=== PATIENT | male | born 1985 | race Caucasian/White ===

== ENCOUNTER 2017-03-16 12:05 | Emergency (ER) | payer SELFPAY ==
[~2017-03-16] VITALS: Ht 177.8 cm; Wt 111.1 kg
[~2017-03-16 12:05] MED LIST: CHL25T PO; CITA40TA19 PO; DCS100C PO; HCT25T PO; HCTZ12.5T PO; HYDR-3454 PO; HYDR1TAB PO; HYDR1TAB8 OP; HYOS0.1216 PO; KETO-22 PO; ONDA-42 SL; ONDAN4ODT PO; PENI500T PO; PHEN16.297 PO; PNT40TEC PO; PROMETHAZINE INJ 25 MG/ML (PHENERGAN) AMP ONE; PROPRANOLOL PO; TRM50T PO
--- NOTE | 2017-03-16 12:10 | ED General ---
General Stated Complaint: VERTIGO WHILE DRIVING Source of Information: Patient Exam Limitations: No Limitations History of Present Illness Time Seen by Provider: 12:09 Initial Comments To ER with reports of vertigo. This began very minimally this morning with mild dizziness that he states is similar to when he stands up too fast. However this persisted and intensified as the morning progressed to the point that he couldn't stand up. EMS was summoned. He has a history of this about a year ago which resolved spontaneously. Timing/Duration: 4-6 Hours Severity: Moderate Allergies and Home Medications Allergies Coded Allergies: alprazolam (Unverified Allergy, Unknown, MAKES HIM VIOLENT, 11/27/14) Constitutional: see HPI EENTM: see HPI Respiratory: no symptoms reported Cardiovascular: no symptoms reported Genitourinary: no symptoms reported Musculoskeletal: no symptoms reported Skin: no symptoms reported Psychiatric/Neurological: See HPI Hematologic/Lymphatic: No Symptoms Reported Immunological/Allergic: no symptoms reported Past Mvfmyvu-Usnzuz-Ylojuy Hx Seasonal Allergies Seasonal Allergies: No Cardiovascular Cardiac Disorders: Hypertension Gastrointestinal Gastrointestinal Disorders: Gall Bladder Disease Psychosocial Behavioral Health Disorders: Anxiety, Suicide Attempts, Depression Blood Transfusions Adverse Reaction to a Blood Tr: No Family Medical History Significant Family History: No Pertinent Family Hx Physical Exam Vital Signs Vital Sign - Last 12Hours 03/16/17 12:07 Temp 97.4 Pulse 65 Resp 18 B/P (MAP) 144/104 Pulse Ox 98 Capillary Refill : General Appearance: No Apparent Distress, WD/WN Eyes: Bilateral Eye Normal Inspection, Bilateral Eye PERRL, Bilateral Eye EOMI HEENT: PERRL/EOMI, TMs Normal, Other (Horizontal nystagmus) Neck: Full Range of Motion, Normal Inspection Respiratory: No Accessory Muscle Use, No Respiratory Distress Cardiovascular: Regular Rate, Rhythm, Normal Peripheral Pulses Gastrointestinal: Non Tender, Soft Extremity: Normal Capillary Refill, Normal Inspection Neurologic/Psychiatric: Alert, Oriented x3, No Motor/Sensory Deficits Skin: Normal Color, Warm/Dry Progress/Results/Core Measures Results/Orders Lab Results Laboratory Tests Test 03/16/17 12:33 03/16/17 13:00 Range/Units White Blood Count 6.0 4.3-11.0 10^3/uL Red Blood Count 4.53 4.35-5.85 10^6/uL Hemoglobin 14.8 13.3-17.7 G/DL Hematocrit 42 40-54 % Mean Corpuscular Volume 93 80-99 FL Mean Corpuscular Hemoglobin 33 25-34 PG Mean Corpuscular Hemoglobin Concent 35 32-36 G/DL Red Cell Distribution Width 11.7 10.0-14.5 % Platelet Count 201 130-400 10^3/uL Mean Platelet Volume 10.2 7.4-10.4 FL Neutrophils (%) (Auto) 52 42-75 % Lymphocytes (%) (Auto) 38 12-44 % Monocytes (%) (Auto) 6 0-12 % Eosinophils (%) (Auto) 3 0-10 % Basophils (%) (Auto) 0 0-10 % Neutrophils # (Auto) 3.1 1.8-7.8 X 10^3 Lymphocytes # (Auto) 2.3 1.0-4.0 X 10^3 Monocytes # (Auto) 0.4 0.0-1.0 X 10^3 Eosinophils # (Auto) 0.2 0.0-0.3 10^3/uL Basophils # (Auto) 0.0 0.0-0.1 10^3/uL Sodium Level 139 135-145 MMOL/L Potassium Level 3.7 3.6-5.0 MMOL/L Chloride Level 107 98-107 MMOL/L Carbon Dioxide Level 25 21-32 MMOL/L Anion Gap 7 5-14 MMOL/L Blood Urea Nitrogen 9 7-18 MG/DL Creatinine 0.79 0.60-1.30 MG/DL Estimat Glomerular Filtration Rate > 60 BUN/Creatinine Ratio 11 Glucose Level 98 70-105 MG/DL Calcium Level 9.0 8.5-10.1 MG/DL Total Bilirubin 0.4 0.1-1.0 MG/DL Aspartate Amino Transf (AST/SGOT) 20 5-34 U/L Alanine Aminotransferase (ALT/SGPT) 19 0-55 U/L Alkaline Phosphatase 62 40-136 U/L Total Protein 7.0 6.4-8.2 GM/DL Albumin 4.2 3.2-4.5 GM/DL Urine Opiates Screen NEGATIVE NEGATIVE Urine Oxycodone Screen NEGATIVE NEGATIVE Urine Methadone Screen NEGATIVE NEGATIVE Urine Propoxyphene Screen NEGATIVE NEGATIVE Urine Barbiturates Screen NEGATIVE NEGATIVE Ur Tricyclic Antidepressants Screen NEGATIVE NEGATIVE Urine Phencyclidine Screen NEGATIVE NEGATIVE Urine Amphetamines Screen NEGATIVE NEGATIVE Urine Methamphetamines Screen NEGATIVE NEGATIVE Urine Benzodiazepines Screen NEGATIVE NEGATIVE Urine Cocaine Screen NEGATIVE NEGATIVE Urine Cannabinoids Screen POSITIVE H NEGATIVE My Orders Orders - EM HOFF APRN Promethazine Injection (Phenergan Injec (03/16/17 12:15) Cbc With Automated Diff (03/16/17 12:08) Comprehensive Metabolic Panel (03/16/17 12:08) Ekg Tracing (03/16/17 12:22) Drug Screen Stat (Urine) (03/16/17 12:22) Medications Given in ED Current Medications Medications Dose Ordered Sig/Lakshmi Route Start Time Stop Time Status Last Admin Dose Admin Promethazine HCl 25 mg ONCE ONCE IM 03/16/17 12:15 03/16/17 12:16 DC 03/16/17 12:01 25 MG Vital Signs/I&O Vital Sign - Last 12Hours 03/16/17 12:07 Temp 97.4 Pulse 65 Resp 18 B/P (MAP) 144/104 Pulse Ox 98 Departure Communication (Admissions) Progress Notes 1351-patient is feeling much better at this time. He has his eyes open now which he was unable to do initially, the nystagmus has resolved and he has been ambulatory to the bathroom. We will discharge to home with a prescription for oral Phenergan. Impression Impression: Primary Impression: Vertigo Disposition: 01 HOME, SELF-CARE Condition: Stable Departure-Patient Inst. Decision time for Depature: 13:52 Referrals: [facility] (PCP/Family) Primary Care Physician Patient Instructions: Vertigo (a Type of Dizziness) (DC) Add. Discharge Instructions: 1. Return to ER for any concerns 2. Take medication every 8 hours as needed for nausea or dizziness 3. Change positions slowly as quick movements may worsen your dizziness Scripts Promethazine HCl (Promethazine Tablet) 25 Mg Tablet 25 MG PO Q8H Y for NAUSEA/VOMITING, #10 TAB Prov: EM HOFF APRN 03/16/17 Work/School Note: Work Release Form Date Seen in the Emergency Department: Mar 16, 2017 Return to Work: Mar 17, 2017 EM HOFF APRN Mar 16, 2017 12:10
--- OUTSIDE RECORDS SUMMARY | 2017-03-16 12:11 | XMS REPORT ---
Author Author BRANDI XIAO Organization [employer] Address Unknown Phone Unavailable Care Team Providers Care Transport Tank Technician Name Role Phone BRANDI XIAO CP Unavailable Allergies, Adverse Reactions, Alerts Substance Reaction Event Type Xanax makes the pt. angry Drug Allergy Problems Problem Type Condition Code Onset Dates Condition Status Problem Depressive disorder, not elsewhere classified 311 Active Problem Esophageal reflux 530.81 Active Problem Adjustment disorder with mixed anxiety and depressed mood 309.28 Active Assessment Right hand pain M79.641 Active Medications Medication Code System Code Instructions Start Date End Date Status Dosage Valium [facility] [place] [address]-50 10 MG Orally Twice a day 1 tablet as needed Naprosyn [facility] [place] [address]-92 500 MG Orally every 12 hrs Jun 30, 2015Jul 1 tablet as needed Procedures Procedure Coding System Code Date X-RAY EXAM OF HAND CPT-4 66860 Jun 30, 2015 Office Visit, Est Pt., Level 3 CPT-4 48964 Jun 30, 2015 Vital Signs Date/Time: Jun 30, 2015 Temperature 97.7 F Weight 284.3 lbs Height 70 in BMI 40.79 Index Blood Pressure Diastolic 100 mmHg Blood Pressure Systolic 150 mmHg Cardiac Monitoring Heart Rate 80 bpm Results No Known Results Summary Purpose [employer] Submission
--- OUTSIDE RECORDS SUMMARY | 2017-03-16 12:11 | XMS REPORT ---
Author MATTEO Acevedo [employer] Address Unknown Phone Unavailable Care Team Providers Care Senior Data Architect Name Role Phone MATTEO WILSON CP Unavailable Allergies, Adverse Reactions, Alerts Substance Reaction Event Type Xanax makes the pt. angry Drug Allergy Problems Problem Type Condition Code Onset Dates Condition Status Problem Depressive disorder, not elsewhere classified 311 Active Problem Esophageal reflux 530.81 Active Problem Adjustment disorder with mixed anxiety and depressed mood 309.28 Active Assessment Dental examination Z01.20 Active Medications Medication Code System Code Instructions Start Date End Date Status Dosage Amoxicillin [facility] [address]-30 500 MG Orally 4 times daily 1 capsule Webber [facility] NAMED [facility] [address]-49 5-325 MG Orally every 6 hrs 1 tablet as needed Procedures Procedure Coding System Code Date LTD ORAL EVALUATION - PROBLEM FOCUS CPT-4 D0140 December 22, 2015 Vital Signs Date/Time: December 22, 2015 Blood Pressure Diastolic 105 mmHg Blood Pressure Systolic 161 mmHg Height 70 in Results No Known Results Summary Purpose [employer] Submission
--- OUTSIDE RECORDS SUMMARY | 2017-03-16 12:11 | XMS REPORT ---
Author Author ALYSON DIAZ [employer] Address Unknown Phone Unavailable Care Team Providers Care Field Operations Farm Manager Name Role Phone ALYSON DIAZ CP Unavailable Allergies, Adverse Reactions, Alerts Substance Reaction Event Type Xanax makes the pt. angry Drug Allergy Problems Problem Type Condition Code Onset Dates Condition Status Problem Depressive disorder, not elsewhere classified 311 Active Problem Esophageal reflux 530.81 Active Problem Adjustment disorder with mixed anxiety and depressed mood 309.28 Active Assessment Dental caries K02.9 Active Medications Medication Code System Code Instructions Start Date End Date Status Dosage Tramadol HCl [facility] [address]-06 50 MG Orally every 6 hrs 1 tablet as needed Procedures Procedure Coding System Code Date EXTRAC ERUPTED TOOTH/EXPOSED ROOT CPT-4 D7140 January 08, 2016 Vital Signs Date/Time: January 08, 2016 Blood Pressure Diastolic 101-cuff, 152 mmHg Blood Pressure Systolic 154 mmHg Results No Known Results Summary Purpose [employer] Submission
--- OUTSIDE RECORDS SUMMARY | 2017-03-16 12:14 | XMS REPORT | Continuity of Care Document ---
Author Author [facility] Address Unknown Phone Unavailable Allergies Active Description Code Type Severity Reaction Onset Reported/Identified Relationship to Patient Clinical Status Yes No Known Drug Allergies [id number] Drug Allergy Unknown N/ A 04/05/2010 Yes Zoloft Drug Allergy N/A N/A 08/03/2010 Yes alprazolam [id number] Drug Allergy Unknown MAKES HIM VIOLE 11/27/2014 Medications Problems Date Dx Coded Attending Type Code Diagnosis Diagnosed By 04/09/2009 LY ISIDRO DO 278.02 Overweight 04/09/2009 LY ISIDRO DO 401.9 ESSENTIAL HYPERTENSION 04/09/2009 JIM BRUCE MD 278.02 Overweight 04/09/2009 JIM BRUCE MD 401.9 ESSENTIAL HYPERTENSION 04/09/2009 JIM BRUCE MD 278.02 Overweight 04/09/2009 JIM BRUCE MD 401.9 ESSENTIAL [facility]ERTENSION [facility]09[facility]/09[facility] 401.9 ESSENTIAL HYPERTENSION 04/09/2009 JIM BRUCE MD 278.02 Overweight 04/09/2009 JIM BRUCE MD 401.9 ESSENTIAL HYPERTENSION 04/09/2009 JIM BRUCE MD 278.02 Overweight 04/09/2009 JIM BRUCE MD 401.9 ESSENTIAL HYPERTENSION 04/15/2009 LY ISIDOR DO 272.4 OTHER AND UNSPECIFIED HYPERLIPIDEMIA 04/15/2009 JIM BRUCE MD N 272.4 OTHER AND UNSPECIFIED HYPERLIPIDEMIA 04/15/2009 JIM BRUCE MD 272.4 OTHER AND UNSPECIFIED HYPERLIPIDEMIA 04/15/2009 [facility] 272.[facility] OTHER AND UNSPECIFIED HYPERLIPIDEMIA 04/15/2009 JIM BRUCE MD 272.4 OTHER AND UNSPECIFIED HYPERLIPIDEMIA 04/15/2009 JIM BRUCE MD 272.4 OTHER AND UNSPECIFIED HYPERLIPIDEMIA 06/03/2009 VASILE ISIDRO DOA K 466.0 BRONCHITIS, ACUTE 06/03/2009 JIM BRUCE MD N 466.0 BRONCHITIS, ACUTE 06/03/2009 JIM BRUCE MD N 466.0 BRONCHITIS, ACUTE 06/03/2009 [facility] R 466.0 BRONCHITIS, ACUTE 06/03/2009 JIM BRUCE MD N 466.0 BRONCHITIS, ACUTE 06/03/2009 JIM BRUCE MD 466.0 BRONCHITIS, ACUTE 04/05/2010 Ot 575.10 04/05/2010 Ot 789.06 07/29/2010 LY ISIDRO DO K 300.4 DYSTHYMIC DISORDER 07/29/2010 VASILE ISIDRO DOA K 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 07/29/2010 LY ISIDRO DO K 401.1 BENIGN ESSENTIAL HYPERTENSION 07/29/2010 JIM BRUCE MD N 300.4 DYSTHYMIC DISORDER 07/29/2010 JIM BRUCE MD N 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 07/29/2010 JIM BRUCE MD N 401.1 BENIGN ESSENTIAL HYPERTENSION 07/29/2010 JIM BRUCE MD N 300.4 DYSTHYMIC DISORDER 07/29/2010 JIM BRUCE MD N 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 07/29/2010 JIM BRUCE MD N 401.1 BENIGN ESSENTIAL HYPERTENSION 07/29/2010 [facility] SHARDA R 300.4 DYSTHYMIC DISORDER 07/29/2010 [facility] R 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 07/29/2010 [facility] SHAR[facility] R 401.1 BENIGN ESSENTIAL HYPERTENSION 07/29/2010 JIM BRUCE MD N 300.4 DYSTHYMIC DISORDER 07/29/2010 JIM BRUCE MD N 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 07/29/2010 JIM BRUCE MD N 401.1 BENIGN ESSENTIAL HYPERTENSION 07/29/2010 JIM BRUCE MD N 300.4 DYSTHYMIC DISORDER 07/29/2010 JIM BRUCE MD N 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 07/29/2010 JIM BRUCE MD 401.1 BENIGN ESSENTIAL HYPERTENSION 08/08/2010 Ot 523.40 08/08/2010 Ot 525.9 03/22/2013 SRIDEVI RODRIGUEZ DO Ot 574.20 03/22/2013 SRIDEVI RODRIGUEZ DO Ot 789.00 03/29/2013 LY ISIDRO DO 311 DEPRESSIVE DISORDER NOT ELSEWHERE CLASSIFIED 03/29/2013 JIM BRUCE MD 311 DEPRESSIVE DISORDER NOT ELSEWHERE CLASSIFIED 03/29/2013 JIM BRUCE MD 311 DEPRESSIVE DISORDER NOT ELSEWHERE CLASSIFIED 03/29/2013 [facility] R 311 DEPRESSIVE DISORDER NOT ELSEWHERE CLASSIFIED 03/29/2013 JIM BRUCE MD 311 DEPRESSIVE DISORDER NOT ELSEWHERE CLASSIFIED 03/29/2013 JIM BRUCE MD 311 DEPRESSIVE DISORDER NOT ELSEWHERE CLASSIFIED 05/07/2013 JIM BRUCE MD N 530.81 GERD 05/07/2013 JIM BRUCE MD 530.81 GERD 05/07/2013 [facility] R 530.81 GERD 05/07/2013 JIM BRUCE MD N 530.81 GERD 05/07/2013 JIM BRUCE MD 530.81 GERD 08/12/2013 PETRA KWAN MD Ot 401.9 08/12/2013 PETRA KWAN MD T Ot 786.52 08/12/2013 PETRA KWAN MD T Ot 786.59 08/13/2013 [facility] R 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 08/13/2013 JIM BRUCE MD 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 08/13/2013 JIM BRUCE MD 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 07/20/2014 YULY RODRIGUEZ DOKirk Duarte Ot 574.20 07/20/2014 SRIDEVI RODRIGUEZ DO Felicia Ot 789.01 08/13/2014 VIVI CHAPMAN Ot 300.00 08/13/2014 VIVI CHAPMAN Ot 311 08/13/2014 VIVI CHAPMAN Ot V62.84 12/04/2014 JONATHON SANDERS DO Ot 574.10 12/04/2014 JONATHON SANDERS DO Ot 574.20 05/13/2015 JONATHON SANDERS DO Ot 574.20 05/13/2015 JONATHON SANDERS DO Ot V72.63 05/13/2015 JONATHON SANDERS DO Ot V74.8 05/27/2015 JONATHON SANDERS DO Shabnam Ot 574.20 05/27/2015 JONATHON SANDERS DO Shabnam Ot V72.63 05/27/2015 JONATHON SANDERS DO Ot V74.8 Procedures Code [place] [address] ROUTINE VENIPUNCTURE 05/08/2013 29059 CMP 05/08/2013 33039 LIPID PANEL 05/08 03269 PSYCH DIAGNOSTIC EVALUATION 08/14/2013 70342 ROUTINE VENIPUNCTURE 12/12/2013 26175 CMP 12/12/2013 31951 LIPID PANEL 12/12 Results Encounters ACCT No. Visit Date/Time Discharge Status Pt. Type Provider Facility Loc./Unit Complaint [id number] 12/12/2013 10:09:00 12/12/2013 23: 59:59 CLS Outpatient JIM BRUCE MD [id number] 08/20/2013 14:13:00 08/20/2013 23: 59:59 CLS Outpatient JIM BRUCE MD [id number] 08/13/2013 12:46:00 08/13/2013 23: 59:59 CLS Outpatient SHARDA BURTON [id number] 05/08/2013 09:23:00 05/08/2013 23: 59:59 CLS Outpatient JIM BRUCE MD [id number] 05/07/2013 10:12:00 05/07/2013 23: 59:59 CLS Outpatient JIM BRUCE MD [id number] 03/29/2013 14:38:00 03/29/2013 23: 59:59 CLS Outpatient DWAINE LY Felicia [id number] 12/04/2014 06:00:00 2014 15:00:00 DIS Outpatient JONATHON SANDERS DO [facility] [id number] 11/27/2014 10:29:00 2014 23:59:59 CLS Outpatient JONATHON SANDERS DO [facility] PREOP [id number] 08/13/2014 18:37:00 2014 21:10:00 DIS Emergency VIVI CHAPMAN [facility] ER [id number] 07/20/2014 02:13:00 2014 04:14:00 DIS Emergency SRIDEVI RODRIGUEZ DO [facility] ER [id number] 01/19/2014 20:11:00 2013 23:59:59 CLS Emergency [id number] 08/12/2013 18:54:00 2013 20:58:00 DIS Emergency PETRA KWAN MD [facility] ER [id number] 03/22/2013 19:19:00 2012 21:43:00 DIS Emergency SRIDEVI RODRIGUEZ DO [facility] ER [id number] 08/08/2010 00:33:00 Document Registration [id number] 04/05/2010 09:38:00 Document Registration
[2017-03-16] MEDS ORDERED: PROMETHAZINE INJ 25 MG/ML (PHENERGAN) AMP IM ONE (12:15)
[2017-03-16 12:39] LABS: BASOPHILS % (AUTO) 0 % (0-10); EOSINOPHILS # (AUTO) 0.2 10^3/uL (0.0-0.3); EOSINOPHILS % (AUTO) 3 % (0-10); LYMPHOCYTES # (AUTO) 2.3 X 10^3 (1.0-4.0); LYMPHOCYTES % (AUTO) 38 % (12-44); MEAN CORPUSCULAR HEMOGLOBIN 33 PG (25-34); MEAN CORPUSCULAR HGB CONC 35 G/DL (32-36); MEAN CORPUSCULAR VOLUME 93 FL (80-99); MEAN PLATELET VOLUME 10.2 FL (7.4-10.4); MONOCYTES # (AUTO) 0.4 X 10^3 (0.0-1.0); MONOCYTES % (AUTO) 6 % (0-12); NEUTROPHILS # (AUTO) 3.1 X 10^3 (1.8-7.8); NEUTROPHILS % (AUTO) 52 % (42-75); PLATELET COUNT 201 10^3/uL (130-400); RED BLOOD COUNT 4.53 10^6/uL (4.35-5.85); RED CELL DISTRIBUTION WIDTH 11.7 % (10.0-14.5)
[2017-03-16 12:56] LABS: ALANINE AMINOTRANSFERASE 19 U/L (0-55); ALBUMIN 4.2 GM/DL (3.2-4.5); ANION GAP 7 MMOL/L (5-14); ASPARTATE AMINO TRANSFERASE 20 U/L (5-34); BILIRUBIN,TOTAL 0.4 MG/DL (0.1-1.0); BLOOD UREA NITROGEN 9 MG/DL (7-18); BUN/CREATININE RATIO 11; CARBON DIOXIDE 25 MMOL/L (21-32); CHLORIDE 107 MMOL/L (98-107); CREATININE SERUM 0.79 MG/DL (0.60-1.30); GFR ESTIMATED > 60; GLUCOSE 98 MG/DL (70-105); POTASSIUM 3.7 MMOL/L (3.6-5.0); SODIUM 139 MMOL/L (135-145)
[2017-03-16] MEDS ORDERED: PROM25TA14 PO (13:53)
[2017-03-16 13:59] VITALS: BP 136/88
== END 2017-03-16 13:59 | disposition home or self-care (01) ==
LOC: EDUNIT# 12:05 → ER 12:06
DX: R42 Dizziness and giddiness (principal); F41.9 Anxiety disorder, unspecified; F32.9 Major depressive disorder, single episode, unspecified; I10 Essential (primary) hypertension; Z91.5 Personal history of self-harm
CPT/HCPCS: 36415; 80053; 80306; 85025; 93005; 96372

== ENCOUNTER 2018-04-15 10:22 | Emergency (ER) | payer SELFPAY ==
[~2018-04-15] VITALS: Ht 177.8 cm; Wt 115.7 kg
[~2018-04-15 10:22] MED LIST changes: +PROM25TA14 PO; -PROMETHAZINE INJ 25 MG/ML (PHENERGAN) AMP ONE
--- OUTSIDE RECORDS SUMMARY | 2018-04-15 10:52 | XMS REPORT ---
Author Author BENITEZ GE [facility] Address [address] [place] [address] Care Team Providers Care Crane Man Name Role Phone BENITEZ GE Unavailable PROBLEMS Type Condition ICD9-CM Code FSC85-MU Code Onset Dates Condition Status SNOMED Code Problem Essential hypertension I10 Active 23302157 Problem Esophageal reflux K21.9 Active 922709166 Problem Mixed emotional features as adjustment reaction F43.23 Active 38153193 Problem Depressive disorder, not elsewhere classified F32.9 Active 83807533 ALLERGIES No Information ENCOUNTERS Encounter Location Date Diagnosis [place] [address] [address] Mar, Essential hypertension I10 [place] [address] [address] Feb, [place] [address] [address] Jan, Essential hypertension I10 and Dizziness R42 [place] [address] [address] Dec, [place] [address] [address] Dec, Dizziness R42 and Elevated blood pressure reading R03.0 [place] [address] [address] Apr, [place] [address] [address] Apr, Family history of cardiovascular disease Z82.49 [place] [address] [address] Mar, Syncope, unspecified syncope type R55 and Family history of cardiovascular disease Z82.49 [facility] [address] [id number] Dec, Dental caries K02.9 [facility] [address], [place] [address] Dec, Dental examination Z01.20 [facility] [address] [place] [id number] [place] [id number] Sep, Dental examination Z01.20 [facility] [address] [place] [id number] [place] [address] Jun, Right hand pain M79.641 [facility] [address] [place] [id number] [place] [address] Nov, [facility] [address] Nov, [facility] [id number] [place] [id number] Nov, [facility] [address] [address] October, Gallstones 574.20 [facility] [address] [id number] Sep, [facility] [address], [place] [address] Sep, [facility] [address] [address] Jan, [facility] [address] [address] Jan, [facility] [address] [address] Dec, [facility] [address] [address] Dec, [facility] [address] [place] [address] Dec, [facility] [address] [id number] [place] [address] Dec, [facility] [place] [facility] [address] [id number] [place] [address] Nov, [facility] [address] [id number] [place] [address] Nov, [facility] [place] [facility] [address] [id number] [place] [address] October, [facility] [address] [id number] [place] [address] October, [facility] [address] [id number] [place] [address] Sep, [facility] [place] [facility] [address] [id number] [place] [address] Sep, [facility] [address] [id number] [place] [address] Sep, [facility] [place] [facility] [address] [id number] [place] [address] Sep, [facility] [address] [id number] [place] [address] Aug, [facility] [place] [facility] [address] [id number] [place] [address] Aug, [facility] [place] [facility] [address] [id number] [place] [address] Aug, [facility] [place] [facility] [address] [id number] [place] [address] Aug, [facility] [place] [facility] [address] [id number] [place] [address] May, [facility] [place] [facility] [address] [id number] [place] [address] May, [facility] [address] [facility] [id number] [address] May, [facility] [address] [facility] [id number], [place] [address] May, [facility] [address] [facility] [id number], [place] [address] Apr, [facility] [address] [facility] [id number], [place] [address] Apr, [facility] [address] [facility] [id number], [place] [address] Apr, [facility] [address] [facility] [id number], [place] [address] Apr, [facility] [address] [facility] [id number], [place] [address] Apr, [facility] [address] [place] [id number] [address] Apr, [facility] [address], [place] [address] Mar, [facility] [address], [place] [address] Mar, [facility] [address] [place] [id number], [place] [address] Jul, [facility] [address], [place] [address] May, [facility] [address] [facility] [id number], [place] [address] May, [facility] [address] [facility] [id number], [place] [address] Apr, [facility] [address] [id number], [place] [address] Mar, IMMUNIZATIONS No Known Immunizations SOCIAL HISTORY Never Assessed REASON FOR VISIT Requests return call PLAN OF CARE VITAL SIGNS MEDICATIONS No Known Medications RESULTS No Results PROCEDURES No Known procedures INSTRUCTIONS MEDICATIONS ADMINISTERED No Known Medications MEDICAL (GENERAL) HISTORY Type Description Date Medical History hypertension Medical History hyperlipidemia Medical History depression Medical History gastroesophageal reflux disease (GERD) Medical History mood disorder-hx of suicide attempt Medical History anxiety Medical History palpitations Medical History hx if meth/TCH abuse (hx of incareration from 12/2010 to 02/2013 ) Surgical History cholecystectomy Surgical History rt eye surgery Surgical History inguinal hernia Hospitalization History suicide attempt by strangulation Kaleb Fischer 07/28/2010
--- OUTSIDE RECORDS SUMMARY | 2018-04-15 10:52 | XMS REPORT ---
Author Author BENITEZ GE [facility] [address] Address [address] [place] [address] Care Team Providers Care Clerical Associate Name Role Phone BENITEZ GE Unavailable PROBLEMS Type Condition ICD9-CM Code GKL70-HI Code Onset Dates Condition Status SNOMED Code Problem Essential hypertension I10 Active 96249506 Problem Esophageal reflux K21.9 Active 705316175 Problem Mixed emotional features as adjustment reaction F43.23 Active 24935515 Problem Depressive disorder, not elsewhere classified F32.9 Active 32685880 ALLERGIES No Information ENCOUNTERS Encounter Location Date Diagnosis [place] [address] [address] Mar, [place] [address] [address]- [address] Mar, Essential hypertension I10 [place] [address] [address]- [address] Feb, [place] [address] [address]- [address]84 Jan, Essential hypertension I10 and Dizziness R42 [place] [address] [address]- [address]46 Dec, [place] [address] [address]- 6707 Dec, Dizziness R42 and Elevated blood pressure reading R03.0 [place] [address] [address]- [address] Apr, [place] [address] [address]- [address] Apr, Family history of cardiovascular disease Z82.49 [place] [address], [place] [address] Mar, Syncope, unspecified syncope type R55 and Family history of cardiovascular disease Z82.49 [facility] [address] [id number] Dec, Dental caries K02.9 [facility] [address], [place] [address] Dec, Dental examination Z01.20 [facility] [address] [place] [id number] [place] [id number] Sep, Dental examination Z01.20 [facility] [address] [place] [address] [id number] [place] [address] 2546 Jun, Right hand pain M79.641 [facility] [address], [place] [address] 9[address] Nov, [facility] [address] [place] [address] [id number] [place] [address]- 1006 Nov, [facility] [address] [address] Nov, [facility] [address], [place] [address]- 2[address] October, Gallstones 574.20 [facility] [address] [place] [address] [id number] [address] Sep, [facility] [address] [address] [address] Sep, [facility] [address] [address] Jan, [facility] [address], [place] [address]- 0536 Jan, [facility] [address], [place] [address]- 4376 Dec, [facility] [address] [place] [id number] [place] [address]- 25[address] Dec, [facility] [address] [id number] [place] [address]- 9589 Dec, [facility] [place] [facility] [address] [id number] [place] [address]- 6356 Dec, [facility] [address] [id number] [place] [address]- 5104 Nov, [facility] [place] [facility] [address] [id number] [place] [address]- 3398 Nov, [facility] [place] [facility] [address] [id number] [place] [address]- 6133 October, [facility] [place] [facility] [address] [id number] [place] [address]- 1766 October, [facility] [place] [facility] [address] [id number] [place] [address]- 1614 Sep, [facility] [address] [id number] [place] [address]- 1048 Sep, [facility] [place] [facility] [address] [id number] [place] [address]- 0535 Sep, [facility] [address] [id number] [place] [address]- 6719 Sep, [facility] [place] [facility] [address] [id number] [place] [address]- 2046 Aug, [facility] [place] [facility] [address] [id number] [place] [address]- 2955 Aug, [facility] [place] [facility] [address] [id number] [place] [address]- 3022 Aug, [facility] [place] [facility] [address] [id number] [place] [address]- 2546 Aug, [facility] [place] [facility] [address] [id number] [place] [address]- 8528 May, [facility] [address] [id number] [place] [address]- 1954 May, [facility] [place] [facility] [address] [id number] [place] [address]- 9504 May, [facility] [place] [facility] [address] [id number] [place] [address]- 9487 May, [facility] [place] [facility] [address] [id number] [place] [address]- 3530 Apr, [facility] [place] [facility] [address] [id number] [place] [address]- 1767 Apr, [facility] [place] [facility] [address] [id number] [place] [address]- 5572 Apr, [facility] [place] [facility] [address] [id number] [place] [address]- 2475 Apr, [facility] [place] [facility] [address] [id number], [place] [address]- 6419 Apr, [facility] [place] [facility] [address] [id number] [place] [address]- 1305 Apr, [facility] [place] [facility] [address] [facility] [id number], [place] [address]- 5[address] Mar, [facility] [place] [facility] [address] [facility] [id number], [place] [address]- 2538 Mar, [facility] [place] [facility] [address] [id number], [place] [address]- 1002 Jul, [facility] [place] [facility] [address] [id number], [place] [address]- 5435 May, [facility] [place] [facility] [address] [id number], [place] [address]- 5686 May, [facility] [place] [facility] [address] [facility] [id number], [place] [address]- 0495 Apr, [facility] [place] [facility] [address] [id number], [place] [address]- 7739 Mar, IMMUNIZATIONS No Known Immunizations SOCIAL HISTORY Never Assessed REASON FOR VISIT FYI PLAN OF CARE VITAL SIGNS MEDICATIONS Unknown Medications RESULTS No Results PROCEDURES No Known [...]
--- OUTSIDE RECORDS SUMMARY | 2018-04-15 10:53 | XMS REPORT ---
Author Author JANIS JIM [facility] Address [address] [place] [address] Care Team Providers Care B2B Sales Consultant Name Role Phone JANISISABELLE ALBAHANY Unavailable PROBLEMS Type Condition ICD9-CM Code [id number] Code Onset Dates Condition Status SNOMED Code Problem Depressive disorder, not elsewhere classified F32.9 Active 17212316 Problem Esophageal reflux K21.9 Active 195562442 Problem Mixed emotional features as adjustment reaction F43.23 Active 26102618 ALLERGIES No Information ENCOUNTERS Encounter Location Date Diagnosis [place] [address] [address] Apr, [address] [address]- [address] Apr, Family history of cardiovascular disease Z82.49 [place] [address] [address]- 6[address] Mar, Syncope, unspecified syncope type R55 and Family history of cardiovascular disease Z82.49 [facility] [address] [id number] Dec, Dental caries K02.9 [place] [address] [address]- [address]15 Dec, Dental examination Z01.20 [facility] [address] [id number] Sep, Dental examination Z01.20 [place] [address] [address]- 4366 Jun, Right hand pain M79.641 [place] [address] [address]- 4897 Nov, [facility] [place] [facility] [address] [id number] [place] [address]- 3435 Nov, [facility] [place] [facility] [address] [id number] [place] [address]- 8521 Nov, [facility] [place] [facility] [address] [id number] [place] [address]- 0180 October, Gallstones 574.20 [facility] [place] [facility] [address] [id number] [place] [address]- 5925 Sep, [facility] [place] [facility] [address] [id number] [place] [address]- 0898 Sep, [facility] [place] [facility] [address] [id number] [place] [address]- 8907 Jan, [facility] [place] [facility] [address] [id number] [place] [address]- 9758 Jan, [facility] [place] [facility] [address] [id number] [place] [address]- 8532 Dec, [facility] [place] [facility] [address] [id number] [place] [address]- 0287 Dec, [facility] [place] [facility] [address] [id number] [place] [address]- 1876 Dec, [facility] [place] [facility] [address] [id number] [place] [address]- 8058 Dec, [facility] [place] [facility] [address] [id number] [place] [address]- 3490 Nov, [facility] [place] [facility] [address] [id number] [place] [address]- 6761 Nov, [facility] [place] [facility] [address] [id number] [place] [address]- 4026 October, [facility] [place] [facility] [address] [id number] [place] [address]- 0160 October, [facility] [place] [facility] [address] [id number] [place] [address]- 4896 10 Sep, 2013 [facility] [address] [id number] [place] [address]- 7141 Sep, [facility] [place] [facility] [address] [id number] [place] [address]- 5416 Sep, [facility] [place] [facility] [address] [id number] [place] [address]- 8367 Sep, [facility] [place] [facility] [address] [id number] [place] [address]- 9330 Aug, [facility] [place] [facility] [address] [id number] [place] [address]- 2784 Aug, [facility] [place] [facility] [address] [id number] [place] [address]- 5535 Aug, [facility] [place] [facility] [address] [id number] [place] [address]- 5229 Aug, [facility] [place] [facility] [address] [id number] [place] [address]- 5118 May, [facility] [place] [facility] [address] [id number] [place] [address]- 3397 May, [facility] [place] [facility] [address] [facility] [id number] [place] [address]- 7675 May, [facility] [place] [facility] [address] [id number] [place] [address]- 4376 May, [facility] [place] [facility] [address] [id number] [place] [address]- 1177 Apr, [facility] [place] [facility] [address] [id number] [place] [address]- 7644 Apr, [facility] [place] [facility] [address] [id number] [place] [address]- 6732 Apr, [facility] [place] [facility] [address] [id number] [place] [address]- 0030 Apr, [facility] [place] [address], [place] [address]- 5230 Apr, [facility] [place] [address]005[address], [place] [address]- 0736 Apr, [facility] [place] [address], [place] [address]- 8759 Mar, [facility] [place] [address], [place] [address]- 8853 Mar, [facility] [place] [address], [place] [address]- 8195 Jul, [facility] [place] [address] [place] [id number] [place] [address]- 5186 May, [facility] [place] [address], [place] [address]- 2120 May, [facility] [place] [address], [place] [address]- 7966 Apr, [facility] [place] [address] [place] [id number], [place] [address]- 1830 Mar, IMMUNIZATIONS No Known Immunizations SOCIAL HISTORY Never Assessed REASON FOR VISIT Lab (walk-in) PLAN OF CARE VITAL SIGNS MEDICATIONS Unknown Medications RESULTS No Results PROCEDURES Procedure Date Ordered Result Body Site LIPID PANEL Apr 14, 2017 ASSAY THYROID STIM HORMONE Apr 14, 2017 VENIPUNCT, ROUTINE* Apr 14, 2017 INSTRUCTIONS MEDICATIONS ADMINISTERED No Known Medications MEDICAL (GENERAL) HISTORY Type Description Date Medical History hypertension Medical History hyperlipidemia Medical History depression Medical History gastroesophageal reflux disease (GERD) Medical History mood disorder-hx of suicide attempt Medical History anxiety Medical History palpitations Medical History hx if meth/TCH abuse (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
--- OUTSIDE RECORDS SUMMARY | 2018-04-15 10:53 | XMS REPORT ---
Author Author BENITEZ GE [facility] Address [address] [place] [address] Care Team Providers Care Can Maker Name Role Phone BENITEZ GE Unavailable PROBLEMS Type Condition ICD9-CM Code WKR17-HK Code Onset Dates Condition Status SNOMED Code Problem Essential hypertension I10 Active 19302084 Problem Esophageal reflux K21.9 Active 236388475 Problem Mixed emotional features as adjustment reaction F43.23 Active 87121813 Problem Depressive disorder, not elsewhere classified F32.9 Active 77831911 ALLERGIES No Information ENCOUNTERS Encounter Location Date Diagnosis [place] [id number] [address] Mar, [facility] [address] [address]- [address] Jan, Essential hypertension I10 and Dizziness R42 [place] [address] [address]- 5140 Dec, [place] [address] [address]- 0856 Dec, Dizziness R42 and Elevated blood pressure reading R03.0 [place] [address] [address]- 3139 Apr, [facility] [address] [address]- 7036 Apr, Family history of cardiovascular disease Z82.49 [facility] [address] [address]- 7995 Mar, Syncope, unspecified syncope type R55 and Family history of cardiovascular disease Z82.49 [facility] [address] [id number] Dec, Dental caries K02.9 [facility] [address] [id number] [address] [address] Dec, Dental examination Z01.20 [facility] [address] [id number] [address] Sep, Dental examination Z01.20 [facility] [address] [id number], [place] [address]- 0105 Jun, Right hand pain M79.641 [facility] [address] [id number][place]- 3992 Nov, [facility] [address] [id number] 3206 Nov, [facility] [address] [facility] [id number] 1777 Nov, [facility] [address] [facility] [id number][place] [address]- 3607 October, Gallstones 574.20 [facility] [address] [id number], [place] [address]- 3337 Sep, [facility] [address] [id number][place] [address]- 4815 Sep, [facility] [address] [id number][place] [address]- 0543 Jan, [facility] [address] [id number], [place] [address]- 8443 Jan, [facility] [address] [id number], [place] [address]- 7134 Dec, [facility] [address] [id number][place]- 8976 Dec, [facility] [address] [id number][place] 4510 Dec, [facility] [address] [id number] [place] [address]- 7126 Dec, [facility] [place] [facility] [address] [id number] [place] [address]- 2561 Nov, [facility] [place] [facility] [address] [id number] [place] [address]- 4886 Nov, [facility] [place] [facility] [address] [id number] [place] [address]- 9736 October, [facility] [place] [facility] [address] [id number] [place] [address]- 4262 October, [facility] [place] [facility] [address] [id number] [place] [address]- 2114 Sep, [facility] [place] [facility] [address] [id number] [place] [address]- 1492 Sep, [facility] [place] [facility] [address] [id number] [place] [address]- 8864 Sep, [facility] [place] [facility] [address] [id number] [place] [address]- 6087 Sep, [facility] [place] [facility] [address] [id number] [place] [address]- 9410 Aug, [facility] [place] [facility] [address] [id number] [place] [address]- 3249 Aug, [facility] [place] [facility] [address] [id number] [place] [address]- 5254 Aug, [facility] [place] [facility] [address] [id number] [place] [address]- 2546 Aug, [facility] [place] [facility] [address] [id number] [place] [address]- 3846 May, [facility] [place] [facility] [address] [id number] [place] [address]- 7316 May, [facility] [place] [facility] [address] [id number] [place] [address]- 3796 May, [facility] [address]00565[address], [place] [address]- 5608 May, [facility] [address]00565100[place], [place] [address]- 0113 Apr, [facility] [address]00565100[place], [place] [address]- 4775 Apr, [facility] [id number] [place] [address]- 0580 Apr, [facility] [address] [facility] [id number], [place] [address]- 8954 Apr, [facility] [id number] [place] [address] 25[address]- 0593 Apr, [facility] [address]00565[address], [place] [address]- 6820 Apr, [facility] [address]00565[address], [place] [address]- 1631 Mar, [facility] [address]00565[address], [place] [address]- 7761 Mar, [facility] [address]00565[address], [place] [address]- 0986 Jul, [facility] [address]65[address], [place] [address]- 3215 May, [facility] [address]00565[address], [place] [address]- 9459 May, [facility] [address]65[address], [place] [address]- 9486 Apr, [facility] [address]65[address], [place] [address]- 6824 Mar, IMMUNIZATIONS No Known Immunizations SOCIAL HISTORY Never Assessed REASON FOR VISIT Returned call PLAN OF CARE VITAL SIGNS MEDICATIONS Unknown [...]
--- OUTSIDE RECORDS SUMMARY | 2018-04-15 10:53 | XMS REPORT ---
Author Author JANIS JIM [facility] Address [address] [place] [address] Care Team Providers Care Target Trimmer Name Role Phone JANISISABELLE ALBAHANY Unavailable PROBLEMS Type Condition ICD9-CM Code RCI97-QN Code Onset Dates Condition Status SNOMED Code Problem Depressive disorder, not elsewhere classified F32.9 Active 84088636 Problem Esophageal reflux K21.9 Active 610908860 Problem Mixed emotional features as adjustment reaction F43.23 Active 78069708 ALLERGIES No Information ENCOUNTERS Encounter Location Date Diagnosis [place] [address] [address]- [address] Apr, [address] [address]- 3844 Apr, Family history of cardiovascular disease Z82.49 [place] [address] [address]- 9369 Mar, Syncope, unspecified syncope type R55 and Family history of cardiovascular disease Z82.49 [facility] [address] [id number] Dec, Dental caries K02.9 [place] [address] [address]- 6047 Dec, Dental examination Z01.20 [facility] [address] [id number] Sep, Dental examination Z01.20 [place] [address] [address]- 9203 Jun, Right hand pain M79.641 [place] [address] [address]- 0548 Nov, [facility] [place] [facility] [address] [id number] [place] [address]- 2383 Nov, [facility] [place] [facility] [address] [id number] [place] [address]- 8907 Nov, [facility] [place] [facility] [address] [id number] [place] [address]- 2101 October, Gallstones 574.20 [facility] [place] [facility] [address] [id number] [place] [address]- 5322 Sep, [facility] [place] [facility] [address] [id number] [place] [address]- 6234 Sep, [facility] [place] [facility] [address] [id number] [place] [address]- 2127 Jan, [facility] [place] [facility] [address] [id number] [place] [address]- 5656 Jan, [facility] [place] [facility] [address] [id number] [place] [address]- 6765 Dec, [facility] [place] [facility] [address] [id number] [place] [address]- 4493 Dec, [facility] [place] [facility] [address] [id number] [place] [address]- 1997 Dec, [facility] [place] [facility] [address] [id number] [place] [address]- 9397 Dec, [facility] [place] [facility] [address] [id number] [place] [address]- 5703 Nov, [facility] [place] [facility] [address] [id number] [place] [address]- 2203 Nov, [facility] [place] [facility] [address] [id number] [place] [address]- 4441 October, [facility] [place] [facility] [address] [id number] [place] [address]- 4081 October, [facility] [place] [facility] [address] [id number] [place] [address]- 0951 10 Sep, 2013 [facility] [address] [id number] [place] [address]- 7675 Sep, [facility] [place] [facility] [address] [id number] [place] [address]- 8686 Sep, [facility] [place] [facility] [address] [id number] [place] [address]- 4325 Sep, [facility] [place] [facility] [address] [id number] [place] [address]- 4097 Aug, [facility] [place] [facility] [address] [id number] [place] [address]- 3265 Aug, [facility] [place] [facility] [address] [id number] [place] [address] Aug, [facility] [place] [facility] [address] [id number] [place] [address] Aug, [facility] [place] [facility] [address] [id number] [place] [address] May, [facility] [place] [facility] [address] [id number] [place] [address] May, [facility] [place] [facility] [address] [facility] [id number] [place] [address] May, [facility] [place] [facility] [address] [id number] [place] [address] May, [facility] [place] [facility] [address] [id number] [place] [address] Apr, [facility] [place] [facility] [address] [id number] [place] [address] Apr, [facility] [place] [facility] [address] [id number] [place] [address] Apr, [facility] [place] [facility] [address] [id number] [place] [address] Apr, [facility] [id number] [address] Apr, [facility] [id number] [address] Apr, [facility] [id number] [address] Mar, [facility] [id number] [place] [address] Mar, [facility] [id number] [place] [address] Jul, [facility] [id number] [place] [address] May, [facility] [id number] [address] May, [facility] [id number] [place] [address] Apr, [facility] [id number] [address] Mar, IMMUNIZATIONS No Known Immunizations SOCIAL HISTORY [...]
--- OUTSIDE RECORDS SUMMARY | 2018-04-15 10:53 | XMS REPORT ---
Author Author BENITEZ GE [facility] Address [address] [place] [address] Care Team Providers Care Investment Analyst Name Role Phone BENITEZ GE Unavailable PROBLEMS Type Condition ICD9-CM Code XGT12-HZ Code Onset Dates Condition Status SNOMED Code Problem Essential hypertension I10 Active 83461343 Problem Esophageal reflux K21.9 Active 797745000 Problem Mixed emotional features as adjustment reaction F43.23 Active 67264809 Problem Depressive disorder, not elsewhere classified F32.9 Active 34284952 ALLERGIES Substance Reaction Event Type Date Status Xanax makes the pt. angry Drug Allergy Jan, Active ENCOUNTERS Encounter Location Date Diagnosis [facility] [place] [address] [address] Mar, [facility] [place] [address] [address] Jan, Essential hypertension I10 and Dizziness R42 [facility] [place] [address] [address] Dec, [facility] [place] [address] [address] Dec, Dizziness R42 and Elevated blood pressure reading R03.0 [facility] [place] [address] [address] Apr, [facility] [place] [address] [address] Apr, Family history of cardiovascular disease Z82.49 [facility] [place] [address] [address] Mar, Syncope, unspecified syncope type R55 and Family history of cardiovascular disease Z82.49 [facility] [address] [id number] [id number] Dec, Dental caries K02.9 [facility] [place] [address] [id number] [place] [address] Dec, Dental examination Z01.20 [facility] [address] [id number] [id number] Sep, Dental examination Z01.20 [facility] [place] [address] [id number] [place] [address] Jun, Right hand pain M79.641 [facility] [place] [address] [id number] [address] Nov, [facility] [place] [address] [id number] [place] [address] Nov, [facility] [place] [address] [facility] [id number] [place] Nov, [facility] [place] [address] [facility] [id number] [place] [address] October, Gallstones 574.20 [facility] [place] [address] [id number] [place] [address] Sep, [facility] [place] [address] [facility] [id number] [place] [address] Sep, [facility] [place] [address] [id number] [place] [address] Jan, [facility] [place] [address] [id number] [place] [address] Jan, [facility] [place] [address] [facility] [id number] [place] [address] Dec, [facility] [place] [address] [id number] [place] [address] Dec, [facility] [place] [address] [facility] [id number] [place] [address] Dec, [facility] [place] [facility] [address] [id number] [place] [address] Dec, [facility] [place] [facility] [address] [id number] [place] [address] Nov, [facility] [place] [facility] [address] [id number] [place] [address] Nov, [facility] [place] [facility] [address] [id number] [place] [address] October, [facility] [place] [facility] [address] [id number] [place] [address] October, [facility] [place] [facility] [address] [id number] [place] [address] Sep, [facility] [place] [facility] [address] [id number] [place] [address] Sep, [facility] [place] [facility] [address] [id number] [place] [address] Sep, [facility] [place] [facility] [address] [id number] [place] [address] Sep, [facility] [place] [facility] [address] [id number] [place] [address] Aug, [facility] [place] [facility] [address] [id number] [place] [address] Aug, [facility] [place] [facility] [address] [id number] [place] [address] Aug, [facility] [place] [facility] [address] [id number] [place] [address] Aug, [facility] [place] [facility] [address] [id number] [place] [address] May, [facility] [place] [facility] [address] [id number] [place] [address] May, [facility] [place] [facility] [address] [id number] [address] May, [facility] [place] [address] [facility] [id number] [place] [address] May, [facility] [place] [address] [facility] [id number] [address] Apr, [facility] [place] [address]00565100[place] [address] Apr, [facility] [place] [address] [facility] [id number] [place] [address] Apr, [facility] [place] [address] [facility] [id number] [place] [address] Apr, [facility] [place] [address] [facility] [id number] [place] [address] Apr, [facility] [place] [address]00565100[place] [address] Apr, [facility] [place] [address] [id number] [address] Mar, [facility] [place] [address]00565100[place] [address] Mar, [facility] [place] [address] [id number] [address] Jul, [facility] [place] [address] [id number] [address] May, [facility] [place] [address] [facility] [id number] [place] [address] May, [facility] [place] [address]00565100[place] [address] Apr, [facility] [place] [address] [id number] [address] Mar, IMMUNIZATIONS No Known Immunizations SOCIAL HISTORY Never Assessed REASON FOR VISIT [facility] states has been since he was 11 years old but now is getting worst - -[facility] PLAN OF CARE Activity Details Follow Up 6-8wk Reason:htn VITAL SIGNS Height 70 in 2018-02-01 Weight 262.0 lbs 2018-02-01 Temperature 97.0 degrees Fahrenheit 2018-02-01 Heart Rate 88 bpm 2018-02-01 Respiratory Rate 22 2018-02-01 BMI 37.59 kg/m2 2018-02-01 Blood pressure systolic 152 mmHg 2018-02-01 Blood pressure diastolic 90 mmHg 2018-02-01 MEDICATIONS Medication Instructions Dosage Frequency Start Date End Date Duration Status Lisinopril 20 mg Orally Once a day 1 tablet 24h Jan, 30 day(s) Active RESULTS No Results PROCEDURES No Known procedures [...]
--- OUTSIDE RECORDS SUMMARY | 2018-04-15 10:53 | XMS REPORT ---
Author Author BENITEZ GE [facility] Address [address] [place] [address] Care Team Providers Care Social Media Manager Name Role Phone BENITEZ GE Unavailable PROBLEMS Type Condition ICD9-CM Code PAV51-BS Code Onset Dates Condition Status SNOMED Code Problem Essential hypertension I10 Active 05915326 Problem Esophageal reflux K21.9 Active 574129882 Problem Mixed emotional features as adjustment reaction F43.23 Active 40422588 Problem Depressive disorder, not elsewhere classified F32.9 Active 37120050 ALLERGIES Substance Reaction Event Type Date Status Xanax makes the pt. angry Drug Allergy Dec, Active ENCOUNTERS Encounter Location Date Diagnosis [facility] [address] [address] Mar, [facility] [address] [address] Jan, Essential hypertension I10 and Dizziness R42 [facility] [address] [address] Dec, [facility] [address] [address] Dec, Dizziness R42 and Elevated blood pressure reading R03.0 [facility] [address] [address] Apr, [facility] [address] [address] Apr, Family history of cardiovascular disease Z82.49 [facility] [address] [address] Mar, Syncope, unspecified syncope type R55 and Family history of cardiovascular disease Z82.49 [facility] [address] [id number] [id number] Dec, Dental caries K02.9 [facility] [id number] [place] [address] Dec, Dental examination Z01.20 [facility] [address] [id number] [id number] Sep, Dental examination Z01.20 [facility] [address] [id number], [place] [address]- [address] Jun, Right hand pain M79.641 [facility] [address] [id number], [place] [address]- [address] Nov, [facility] [address] [id number], [place] [address]- [address] Nov, [facility] [address] [facility] [id number][place] [address] Nov, [facility] [address] [facility] [id number][place] [address] October, Gallstones 574.20 [facility] [address] [id number][place] [address]- [address] Sep, [facility] [address] [facility] [id number][place]32[place] [address] Sep, [facility] [address] [id number], [place] [address] Jan, [facility] [address] [id number] Jan, [facility] [address] [facility] [id number][place] [address] Dec, [facility] [address] [id number], [place] [address]- [address] Dec, [facility] [address] [facility] [id number], [place] [address]- [address] Dec, [facility] [place] [facility] [address] [id number] [place] [address] Dec, [facility] [place] [facility] [address] [id number] [place] [address]- 379[address] Nov, [facility] [place] [facility] [address] [id number] [place] [address]- [address]80 Nov, [facility] [place] [facility] [address] [id number] [place] [address]- 2844 October, [facility] [place] [facility] [address] [id number] [place] [address]- [address] October, [facility] [place] [facility] [address] [id number] [place] [address]- [address] Sep, [facility] [place] [facility] [address] [id number] [place] [address]- [address] Sep, [facility] [place] [facility] [address] [id number] [place] [address]- 9211 Sep, [facility] [place] [facility] [address] [id number] [place] [address]- 69[address] Sep, [facility] [place] [facility] [address] [id number] [place] [address]- 9531 Aug, [facility] [place] [facility] [address] [id number] [place] [address]- [address] Aug, [facility] [place] [facility] [address] [id number] [place] [address]- 8680 Aug, [facility] [place] [facility] [address] [id number] [place] [address]- 16[address] Aug, [facility] [place] [facility] [address] [id number] [place] [address]- 40[address] May, [facility] [place] [facility] [address] [id number] [place] [address]- [address] May, [facility] [place] [facility] [address]00565100[place] [address] May, [facility] [address]00565100[place], [place] [address] May, [facility] [address]00565100[place], [place] [address] Apr, [facility] [address]00565100[place], [place] [address] Apr, [facility] [address]00565100[place], [place] [address]- [address] Apr, [facility] [id number] [place] [address]- [address] Apr, [facility] [address]00565100[place], [place] [address] Apr, [facility] [address]00565100[place], [place] [address] Apr, [facility] [address]00565100[place], [place] [address] Mar, [facility] [address]00565100[place], [place] [address] Mar, [facility] [address]00565100[place] [address] Jul, [facility] [address]00565100[place], [place] [address] May, [facility] [address] [id number] [address]- [address] May, [facility] [address]00565100[place], [place] [address]- 14[address] Apr, [facility] [address] [id number], [place] [address] Mar, IMMUNIZATIONS No Known Immunizations SOCIAL HISTORY Never Assessed REASON FOR VISIT Dizziness, started around the age of 11yrs, comes and goes, pt states it is getting worse. Diagnosed with veritigo by [email or web address]. Chante RN, C/O mid back pain. PLAN OF CARE Activity Details Follow Up 2-4 Weeks Reason:Blood pressure VITAL SIGNS Height 70 in 2018-01-01 Weight 257.8 lbs 2018-01-01 Temperature 97.6 degrees Fahrenheit 2018-01-01 Heart Rate 82 bpm 2018-01-01 Respiratory Rate 20 2018-01-01 Oximetry 98 % 2018-01-01 BMI 36.99 kg/m2 2018-01-01 Blood pressure systolic 138 mmHg 2018-01-01 Blood pressure diastolic 102 mmHg 2018-01-01 MEDICATIONS Unknown Medications RESULTS No Results PROCEDURES Procedure Date Ordered Result Body Site COMPREHEN METABOLIC PANEL January 01, 2018 ASSAY THYROID STIM HORMONE January 01, 2018 VENIPUNCT, ROUTINE* January 01, 2018 COMPLETE CBC W/AUTO DIFF WBC January 01, 2018 INSTRUCTIONS MEDICATIONS ADMINISTERED No Known Medications MEDICAL [...]
--- OUTSIDE RECORDS SUMMARY | 2018-04-15 10:54 | XMS REPORT | Continuity of Care Document ---
Author Author [facility] Address Unknown Phone Unavailable Allergies Active Description Code Type Severity Reaction Onset Reported/Identified Relationship to Patient Clinical Status Yes NO KNOWN DRUG ALLERGIES UNKNOWN NO KNOWN DRUG ALLERG Yes No Known Drug Allergies [id number] Drug Allergy Unknown N/A 04/05/2010 Yes Zoloft Drug Allergy N/A N/A 08/03/2010 Yes alprazolam [id number] Drug Allergy Unknown MAKES HIM VIOLE 11/27/2014 Medications Medication Packaging Start Date Stop Date Route Dosage Sig IPRATROPIUM/ALBUTEROL INH SOLN (DUO-NEB INH SOLN) MLS 02/11/2017 02/11/2017 ONCE&2258 AZITHROMYCIN TAB 500 MG (ZITHROMAX) MG 02/11/2017 02/11/2017 ONCE&2309 Problems Date Dx Coded Attending Type Code Diagnosis Diagnosed By 04/09/2009 LY ISIDRO DO 278.02 Overweight 04/09/2009 LY ISIDRO DO 401.9 ESSENTIAL HYPERTENSION 04/09/2009 JIM BRUCE MD 278.02 Overweight 04/09/2009 JIM BRUCE MD 401.9 ESSENTIAL HYPERTENSION 04/09/2009 JIM BRUCE MD 278.02 Overweight 04/09/2009 JIM BRUCE MD 401.9 ESSENTIAL [facility]ENSION [facility]09[facility].9 ESSENTIAL HYPERTENSION 04/09/2009 JIM BRUCE MD 278.02 Overweight 04/09/2009 JIM BRUCE MD 401.9 ESSENTIAL HYPERTENSION 04/09/2009 JIM BRUCE MD 278.02 Overweight 04/09/2009 JIM BRUCE MD 401.9 ESSENTIAL HYPERTENSION 04/15/2009 LY ISIDRO DO 272.4 OTHER AND UNSPECIFIED HYPERLIPIDEMIA 04/15/2009 JANIS MD, JIM N 272.4 OTHER AND UNSPECIFIED HYPERLIPIDEMIA 04/15/2009 JIM BRUCE MD N 272.4 OTHER AND UNSPECIFIED HYPERLIPIDEMIA 04/15/2009 [facility], SHARDA R 272.4 OTHER AND UNSPECIFIED HYPERLIPIDEMIA 04/15/2009 JIM BRUCE MD N 272.4 OTHER AND UNSPECIFIED HYPERLIPIDEMIA 04/15/2009 JIM BRUCE MD N 272.4 OTHER AND UNSPECIFIED HYPERLIPIDEMIA 06/03/2009 LY ISIDRO DO K 466.0 BRONCHITIS, ACUTE 06/03/2009 JIM BRUCE MD N 466.0 BRONCHITIS, ACUTE 06/03/2009 JIM BRUCE MD N 466.0 BRONCHITIS, ACUTE 06/03/2009 [facility], SHARDA R 466.0 BRONCHITIS, ACUTE 06/03/2009 JIM BRUCE MD N 466.0 BRONCHITIS, ACUTE 06/03/2009 JIM BRUCE MD 466.0 BRONCHITIS, ACUTE 04/05/2010 Ot 575.10 04/05/2010 Ot 789.06 07/29/2010 LY ISIDRO DO K 300.4 DYSTHYMIC DISORDER 07/29/2010 LY ISIDRO DO K 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 [...] MD N 401.1 BENIGN ESSENTIAL HYPERTENSION 07/29/2010 [facility], SHARDA R 300.4 DYSTHYMIC DISORDER 07/29/2010 [facility], SHARDA R 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 07/29/2010 [facility], SHARDA R 401.1 BENIGN ESSENTIAL HYPERTENSION 07/29/2010 JIM BRUCE MD N 300.4 DYSTHYMIC DISORDER 07/29/2010 JANISJIM ALBA MD 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 07/29/2010 JIM BRUCE MD N 401.1 BENIGN ESSENTIAL HYPERTENSION 07/29/2010 JIM BRUCE MD N 300.4 DYSTHYMIC DISORDER 07/29/2010 JIM BRUCE MD 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 07/29/2010 JIM BRUCE MD 401.1 BENIGN ESSENTIAL HYPERTENSION 08/08/2010 Ot 523.40 08/08/2010 Ot 525.9 03/22/2013 MICHAEL SRIDEVI SALAZAR K Ot 574.20 CHOLELITHIASIS NOS 03/22/2013 MICHAEL , SRIDEVI K Ot 789.00 ABDOMINAL PAIN, UNSPECIFIED SITE 03/29/2013 DWAINE SALAZAR LY K 311 DEPRESSIVE DISORDER NOT ELSEWHERE CLASSIFIED 03/29/2013 JIM BRUCE MD 311 DEPRESSIVE DISORDER NOT ELSEWHERE CLASSIFIED 03/29/2013 JIM BRUCE MD 311 DEPRESSIVE DISORDER NOT ELSEWHERE CLASSIFIED 03/29/2013 [facility], SHARDA R 311 DEPRESSIVE DISORDER NOT ELSEWHERE CLASSIFIED 03/29/2013 JIM BRUCE MD 311 DEPRESSIVE DISORDER NOT ELSEWHERE CLASSIFIED 03/29/2013 JIM BRUCE MD 311 DEPRESSIVE DISORDER NOT ELSEWHERE CLASSIFIED 05/07/2013 JIM BRUCE MD N 530.81 GERD 05/07/2013 JIM BRUCE MD 530.81 GERD 05/07/2013 [facility], SHARDA R 530.81 GERD 05/07/2013 JIM BRUCE MD 530.81 GERD 05/07/2013 JIM BRUCE MD 530.81 GERD 08/12/2013 PETRA KWAN MD Ot 401.9 HYPERTENSION NOS 08/12/2013 PETRA KWAN MD Ot 786.52 PAINFUL RESPIRATION 08/12/2013 PETRA KWAN MD Ot 786.59 CHEST PAIN NEC 08/13/2013 [facility], SHARDA R 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 08/13/2013 JIM BRUCE MD 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 08/13/2013 JIM BRUCE MD 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 07/20/2014 SRIDEVI RODRIGUEZ DO Ot 574.20 CHOLELITHIASIS NOS 07/20/2014 SRIDEVI RODRIGUEZ DO Ot 789.01 ABDOMINAL PAIN, RIGHT UPPER QUADRANT 08/13/2014 VIVI CHAPMAN Ot 300.00 ANXIETY STATE NOS 08/13/2014 VIVI CHAPMAN Ot 311 DEPRESSIVE DISORDER NEC 08/13/2014 VIVI CHAPMAN Ot V62.84 SUICIDAL IDEATION 12/04/2014 JONATHON SANDERS DO Ot 574.10 CHOLELITH W CHOLECYS NEC 12/04/2014 JONATHON SANDERS DO Ot 574.20 05/13/2015 SANDERS JONATHON SALAZRA Ot 574.20 05/13/2015 SANDERS JONATHON SALAZAR Ot V72.63 05/13/2015 DAHINDA JONATHON SALAZAR Ot V74.8 05/27/2015 SANDERS JONATHON SALAZAR Ot 574.20 05/27/2015 SANDERS JONATHON SALAZAR Ot V72.63 05/27/2015 SANDERS JONATHON SALAZAR Ot V74.8 02/11/2017 Brokob, Renae A 466.0 ACUTE BRONCHITIS 02/11/2017 Brokob, Renae A J20.9 ACUTE BRONCHITIS, UNSPECIFIED 03/16/2017 SANDERS JONATHON SALAZAR Ot 574.20 CHOLELITHIASIS NOS 03/16/2017 DAHINDA JONATHON SALAZAR Ot V72.63 PRE-PROCEDURAL LABORATORY EXAMINATION 03/16/2017 DAHINDA JONATHON SALAZAR Ot V74.8 SCREEN-BACTERIAL DIS NEC 03/16/2017 SANDERSJONATHON HALL DO Ot 574.20 CHOLELITHIASIS NOS 03/16/2017 DAHINDA JONATHON SALAZAR Ot V72.63 PRE-PROCEDURAL LABORATORY EXAMINATION 03/16/2017 DAHINDA JONATHON SALAZAR Ot V74.8 SCREEN-BACTERIAL DIS NEC Procedures Code [place] [address] ROUTINE VENIPUNCTURE 05/08/2013 07897 CMP 05/08/2013 66112 LIPID PANEL 05/08/2013 11026 PSYCH DIAGNOSTIC EVALUATION 08/14/2013 93494 ROUTINE VENIPUNCTURE 12/12/2013 14573 CMP 12/12/2013 34048 LIPID PANEL 12/12/2013 Results Test Result Range Mycoplasma - 02/11/17 22:32 Mycoplasma Negative Negative Complete blood count (CBC) with automated white blood cell (WBC) differential - 03/16/17 12:33 Blood leukocytes automated count (number/volume) 6.0 10*3/uL 4.3-11.0 Blood erythrocytes automated count (number/volume) 4.53 10*6/uL 4.35-5.85 Venous blood hemoglobin measurement (mass/volume) 14.8 g/dL 13.3-17.7 Blood hematocrit (volume fraction) 42 % 40-54 Automated erythrocyte mean corpuscular volume 93 [foz_us] 80-99 Automated erythrocyte mean corpuscular hemoglobin (mass per erythrocyte) 33 pg 25-34 Automated erythrocyte mean corpuscular hemoglobin concentration measurement ( mass/volume) 35 g/dL 32-36 Automated erythrocyte distribution width ratio 11.7 % 10.0-14.5 Automated blood platelet count (count/volume) 201 10*3/uL 130-400 Automated blood platelet mean volume measurement 10.2 [foz_us] 7.4-10.4 Automated blood neutrophils/100 leukocytes 52 % 42-75 Automated blood lymphocytes/100 leukocytes 38 % 12-44 Blood monocytes/100 leukocytes 6 % 0-12 Automated blood eosinophils/100 leukocytes 3 % 0-10 Automated blood basophils/100 leukocytes 0 % 0-10 Blood neutrophils automated count (number/volume) 3.1 10*3 1.8-7.8 Blood lymphocytes automated count (number/volume) 2.3 10*3 1.0-4.0 Blood monocytes automated count (number/volume) 0.4 10*3 0.0-1.0 Automated eosinophil count 0.2 10*3/uL 0.0-0.3 Automated blood basophil count (count/volume) 0.0 10*3/uL 0.0-0.1 Comprehensive metabolic panel - 03/16/17 12:33 Serum or plasma sodium measurement (moles/volume) 139 mmol/L 135-145 Serum or plasma potassium measurement (moles/volume) 3.7 mmol/L 3.6-5.0 Serum or plasma chloride measurement (moles/volume) 107 mmol/L 98-107 Carbon dioxide 25 mmol/L 21-32 Serum or plasma anion gap determination (moles/volume) 7 mmol/L 5-14 Serum or plasma urea nitrogen measurement (mass/volume) 9 mg/dL 7-18 Serum or plasma creatinine measurement (mass/volume) 0.79 mg/dL 0.60-1.30 Serum or plasma urea nitrogen/creatinine mass ratio 11 NRG Serum or plasma creatinine measurement with calculation of estimated glomerular filtration rate > NRG Serum or plasma glucose measurement (mass/volume) 98 mg/dL 70-105 Serum or plasma calcium measurement (mass/volume) 9.0 mg/dL 8.5-10.1 Serum or plasma total bilirubin measurement (mass/volume) 0.4 mg/dL 0.1-1.0 Serum or plasma alkaline phosphatase measurement (enzymatic activity/volume) 62 U/L 40-136 Serum or plasma aspartate aminotransferase measurement (enzymatic activity/ volume) 20 U/L 5-34 Serum or plasma alanine aminotransferase measurement (enzymatic activity/volume ) 19 U/L 0-55 Serum or plasma protein measurement (mass/volume) 7.0 g/dL 6.4-8.2 Serum or plasma albumin measurement (mass/volume) 4.2 g/dL 3.2-4.5 Urine drug screening test - 03/16/17 13:00 Urine phencyclidine detection by screening method NEGATIVE NEGATIVE Urine benzodiazepines detection by screening method NEGATIVE NEGATIVE Urine cocaine detection NEGATIVE NEGATIVE Urine amphetamines detection by screening method NEGATIVE NEGATIVE Urine methamphetamine detection by screening method NEGATIVE NEGATIVE Urine cannabinoids detection by screening method POSITIVE NEGATIVE Urine opiates detection by screening method NEGATIVE NEGATIVE Urine barbiturates detection NEGATIVE NEGATIVE Screening urine tricyclic antidepressants detection NEGATIVE NEGATIVE Urine methadone detection by screening method NEGATIVE NEGATIVE Urine oxycodone detection NEGATIVE NEGATIVE Urine propoxyphene detection NEGATIVE NEGATIVE TSH - 04/14/17 08:52 TSH 0.99 mIU/L 0.40-4.50 TSH - 01/01/18 14:30 TSH 1.55 mIU/L 0.40-4.50 Encounters ACCT No. Visit Date/Time Discharge Status Pt. Type Provider Facility Loc./Unit Complaint [id number] 12/12/2013 10:09:00 12/12/2013 23:59:59 CLS Outpatient JIM BRUCE MD [id number] 08/20/2013 14:13:00 08/20/2013 23:59:59 CLS Outpatient JIM BRUCE MD [id number] 08/13/2013 12:46:00 08/13/2013 23:59:59 CLS Outpatient SHARDA BURTON [id number] 05/08/2013 09:23:00 05/08/2013 23:59:59 CLS Outpatient JIM BRUCE MD [id number] 05/07/2013 10:12:00 05/07/2013 23:59:59 CLS Outpatient JIM BRUCE MD [id number] 03/29/2013 14:38:00 03/29/2013 23:59:59 CLS Outpatient DWAINE LY SALAZAR Felicia [id number] 02/11/2017 22:22:00 02/11/2017 23:22:00 [id number]11[facility]2017 22:58:40 Document Registration [id number] 03/16/2017 12:06:00 03/16/2017 13:59:00 DIS Emergency EM HOFF APRN [facility] ER VERTIGO WHILE DRIVING [id number] 12/04/2014 06:00:00 12/04/2014 15:00:00 DIS Outpatient JONATHON SANDERS DO [facility] SDC GALLSTONES [id number] 11/27/2014 10:29:00 11/27/2014 23:59:59 CLS Outpatient SANDERS JONATHON SALAZAR [facility] PREOP GALLSTONES [id number] 08/13/2014 18:37:00 08/13/2014 21:10:00 DIS Emergency VIVI CHAPMAN [facility] ER SUICIDAL IDEATION [id number] 07/20/2014 02:13:00 07/20/2014 04:14:00 DIS Emergency SRIDEVI RODRIGUEZ DO [facility] ER ABD/BACK PAIN [id number] 01/19/2014 20:11:00 01/19/2014 23:59:59 CLS Emergency [id number] 08/12/2013 18:54:00 08/12/2013 20:58:00 DIS Emergency PETRA KWAN MD [facility] ER CHEST WALL PAIN [id number] 03/22/2013 19:19:00 03/22/2013 21:43:00 DIS Emergency SRIDEVI RODRIGUEZ DO [facility] ER ABD PAIN [id number] 08/08/2010 00:33:00 Document Registration [id number] 04/05/2010 09:38:00 Document Registration [id number] 01/01/2018 13:20:00 01/01/2018 23:59:59 [facility] [id number] 01/01/2018 13:20:00 Document Registration [id number] 04/14/2017 09:20:00 Document Registration
[2018-04-15 11:26] LABS: BILIRUBIN,URINE NEGATIVE (NEGATIVE); CLARITY,URINE CLEAR; COLOR,URINE YELLOW; GLUCOSE, URINE (UA) NEGATIVE (NEGATIVE); KETONES,URINE NEGATIVE (NEGATIVE); LEUKOCYTE ESTERASE ,URINE NEGATIVE (NEGATIVE); NITRITE,URINE NEGATIVE (NEGATIVE); PH,URINE 6.5 (5-9); PROTEIN,URINE NEGATIVE (NEGATIVE); UROBILINOGEN,URINE NORMAL (NORMAL)
--- NOTE | 2018-04-15 11:29 | ED General ---
General Chief Complaint: Dizziness/Syncope Stated Complaint: HEART RACING,DIZZY Nursing Triage Note: PATIENT STATES THAT HAS BEEN HAVING DIZZY SPELLS IN WHICH HE GETS LIGHTHEADED AND BEGINS TO SEE SPOTS. HE HAS NOT LOST CONSCIOUSNESSO R PASSED OUT, HOWEVER HE HAD A SIMILAR EPISODE LAST YEAR IN WHICH HE DID PASS OUT AND WAS DIAGNOSED WITH VERTIGO. WHEN HE HAS THESE SPELLS HE "STARTS PANICKING." HE GETS TIRED AFTER THESE EPISODES. HE CLAIMS IT IS WORSE WHEN HE IS LAYING STILL BUT SEEMS TO GET BETTER WHEN HE GETS UP AND MOVES AROUND. Nursing Sepsis Screen: No Definite Risk Source of Information: Patient Exam Limitations: No Limitations History of Present Illness Date Seen by Provider: Apr 15, 2018 Time Seen by Provider: 11:24 Initial Comments To ER per private vehicle with reports of intermittent dizzy spells. This began when he was about 11 years old occurred intermittently for a few years, then resolved. Symptoms recurred in his 20s then went away, then they've come back for the past few days. He reports that he feels "cold in my legs, I start to see spots, and I feel like shaking on the inside". He does report anxiety but states that he feels as though anxiety comes about because of these lightheaded sensations but does not feel that the lightheadedness and other symptoms are caused by anxiety. He follows with Linad Rosario, nurse practitioner at [facility]. They are in the process of establishing Dr. Murillo from cardiology. Timing/Duration: 1-2 Days Severity: Moderate Allergies and Home Medications Allergies Coded Allergies: alprazolam (Unverified Allergy, Unknown, MAKES HIM VIOLENT, 11/27/14) Home Medications Promethazine HCl 25 Mg Tablet, 25 MG PO Q8H PRN for NAUSEA/VOMITING Prescribed by: EM HOFF on 03/16/17 1563 Patient Home Medication List Home Medication List Reviewed: Yes Review of Systems Review of Systems Constitutional: see HPI EENTM: see HPI Respiratory: no symptoms reported Cardiovascular: see HPI; No chest pain, No edema, No Hx of Intervention; palpitations; No syncope, No vascular heart diseas Genitourinary: no symptoms reported Musculoskeletal: no symptoms reported Skin: no symptoms reported Psychiatric/Neurological: No Symptoms Reported Hematologic/Lymphatic: No Symptoms Reported Past Ltyswvz-Pengrx-Nnffcf Hx Patient Social History Alcohol Use: Denies Use Recreational Drug Use: Yes (MARIJUANA) Type Used: Cigarettes Recent Foreign Travel: No Contact w/Someone Who Travel: No Recent Infectious Disease Expo: No Recent Hopitalizations: No Immunizations Up To Date Tetanus Booster (TDap): Less than 5yrs Seasonal Allergies Seasonal Allergies: No Past Medical History Surgeries: Yes ( RIGHT inguinal hernia) Abdominal, Gallbladder Respiratory: No Cardiac: Yes (HAS NEVER TAKEN BP MEDS) Hypertension Neurological: No Gastrointestinal: Yes Gall Bladder Disease Musculoskeletal: No Endocrine: No Cancer: No Psychosocial: Yes Anxiety, Suicide Attempts, Depression Integumentary: No Blood Disorders: No Adverse Reaction/Blood Tranf: No Family Medical History No Pertinent Family Hx Physical Exam Vital Signs Vital Signs - First Documented 04/15/18 11:05 Temp 96.1 Pulse 57 Resp 20 B/P (MAP) 129/83 (98) Pulse Ox 95 O2 Delivery Room Air Capillary Refill : Less Than 3 Seconds Height, Weight, BMI Height: 5'10.00" Weight: 255lbs. 0oz. 115.872825ha; BMI Method:Stated General Appearance: No Apparent Distress, WD/WN Eyes: Bilateral Eye Normal Inspection, Bilateral Eye PERRL, Bilateral Eye EOMI HEENT: PERRL/EOMI, TMs Normal Neck: Full Range of Motion, Normal Inspection Respiratory: No Accessory Muscle Use, No Respiratory Distress Cardiovascular: Regular Rate, Rhythm, Normal Peripheral Pulses Gastrointestinal: Normal Bowel Sounds, Non Tender, Soft Extremity: Normal Capillary Refill, Normal Inspection Neurologic/Psychiatric: Alert, Oriented x3, No Motor/Sensory Deficits Skin: Normal Color, Warm/Dry Progress/Results/Core Measures Suspected Sepsis Recent Fever Within 48 Hours: No Infection Criteria Present: None New/Unexplained Altered Menta: No Sepsis Screen: No Definite Risk SIRS Temperature:96.1 Pulse: 57 Respiratory Rate: 20 Laboratory Tests 04/15/18 11:25: White Blood Count 7.2 Blood Pressure 129 /83 Mean: 98 Laboratory Tests 04/15/18 11:25: Platelet Count 227 Results/Orders Lab Results Laboratory Tests Test 04/15/18 11:20 04/15/18 11:25 Range/Units Urine Color YELLOW Urine Clarity CLEAR Urine pH 6.5 5-9 Urine Specific [place] 1.005 L 1.016-1.022 Urine Protein NEGATIVE NEGATIVE Urine Glucose (UA) NEGATIVE NEGATIVE Urine Ketones NEGATIVE NEGATIVE Urine Nitrite NEGATIVE NEGATIVE Urine Bilirubin NEGATIVE NEGATIVE Urine Urobilinogen NORMAL NORMAL MG/DL Urine Leukocyte Esterase NEGATIVE NEGATIVE Urine RBC (Auto) NEGATIVE NEGATIVE Urine RBC NONE /HPF Urine WBC RARE /HPF Urine Crystals NONE /LPF Urine Bacteria TRACE /HPF Urine Casts NONE /LPF Urine Mucus NEGATIVE /LPF Urine Culture Indicated NO White Blood Count 7.2 4.3-11.0 10^3/uL Red Blood Count 4.71 4.35-5.85 10^6/uL Hemoglobin 15.3 13.3-17.7 G/DL Hematocrit 44 40-54 % Mean Corpuscular Volume 94 80-99 FL Mean Corpuscular Hemoglobin 33 25-34 PG Mean Corpuscular Hemoglobin Concent 35 32-36 G/DL Red Cell Distribution Width 11.8 10.0-14.5 % Platelet Count 227 130-400 10^3/uL Mean Platelet Volume 10.3 7.4-10.4 FL Neutrophils (%) (Auto) 53 42-75 % Lymphocytes (%) (Auto) 37 12-44 % Monocytes (%) (Auto) 6 0-12 % Eosinophils (%) (Auto) 3 0-10 % Basophils (%) (Auto) 0 0-10 % Neutrophils # (Auto) 3.8 1.8-7.8 X 10^3 Lymphocytes # (Auto) 2.7 1.0-4.0 X 10^3 Monocytes # (Auto) 0.5 0.0-1.0 X 10^3 Eosinophils # (Auto) 0.2 0.0-0.3 10^3/uL Basophils # (Auto) 0.0 0.0-0.1 10^3/uL My Orders Orders - EM HOFF APRN Cbc With Automated Diff (04/15/18 11:09) Comprehensive Metabolic Panel (04/15/18 11:09) Thyroid Stimulating Hormone (04/15/18 11:09) Ekg Tracing (04/15/18 11:09) Troponin I (04/15/18 11:09) Ua Culture If Indicated (04/15/18 11:09) Drug Screen Stat (Urine) (04/15/18 11:09) Iv Heplock-Insert (Order) (04/15/18 11:09) Vital Signs/I&O 04/15/18 11:05 Temp 96.1 Pulse 57 Resp 20 B/P (MAP) 129/83 (98) Pulse Ox 95 O2 Delivery Room Air Capillary Refill : Less Than 3 Seconds Blood Pressure Mean: 98 Departure Impression Primary Impression: Lightheadedness Additional Impressions: Palpitations Anxiety Disposition: 01 HOME, SELF-CARE Condition: Stable Departure-Patient Inst. Decision time for Depature: 11:27 Referrals: [facility] (PCP/Family) Primary Care Physician Patient Instructions: Anxiety, Adult (DC) Add. Discharge Instructions: 1. Return to the hospital tomorrow to the heart center to have the event monitor applied and for them to instruct on how to use it. Call the scheduling department before you come to make sure they have one available. All discharge instructions reviewed with patient and/or family. Voiced understanding. Scripts Hydroxyzine Pamoate (Vistaril) 25 Mg Capsule 25 MG PO Q6H PRN for ANXIETY, #30 CAP Prov: EM HOFF APRN 04/15/18 EM HOFF APRN Apr 15, 2018 11:29
[2018-04-15 11:33] LABS: BASOPHILS % (AUTO) 0 % (0-10); EOSINOPHILS # (AUTO) 0.2 10^3/uL (0.0-0.3); EOSINOPHILS % (AUTO) 3 % (0-10); HEMATOCRIT 44 % (40-54); HEMOGLOBIN 15.3 G/DL (13.3-17.7); LYMPHOCYTES # (AUTO) 2.7 X 10^3 (1.0-4.0); LYMPHOCYTES % (AUTO) 37 % (12-44); MEAN CORPUSCULAR HEMOGLOBIN 33 PG (25-34); MEAN CORPUSCULAR HGB CONC 35 G/DL (32-36); MEAN CORPUSCULAR VOLUME 94 FL (80-99); MEAN PLATELET VOLUME 10.3 FL (7.4-10.4); MONOCYTES # (AUTO) 0.5 X 10^3 (0.0-1.0); MONOCYTES % (AUTO) 6 % (0-12); NEUTROPHILS # (AUTO) 3.8 X 10^3 (1.8-7.8); NEUTROPHILS % (AUTO) 53 % (42-75); PLATELET COUNT 227 10^3/uL (130-400); RED BLOOD COUNT 4.71 10^6/uL (4.35-5.85); RED CELL DISTRIBUTION WIDTH 11.8 % (10.0-14.5); WHITE BLOOD COUNT 7.2 10^3/uL (4.3-11.0)
[2018-04-15 11:33] LABS: BACTERIA,URINE TRACE /HPF; WBC,URINE RARE /HPF
[2018-04-15] MEDS ORDERED: HYDR25CA PO (11:35)
[2018-04-15 11:39] LABS: AMPHETAMINE SCREEN, URINE NEGATIVE (NEGATIVE); BARBITURATE SCREEN URINE NEGATIVE (NEGATIVE); BENZODIAZEPINES SCREEN URINE NEGATIVE (NEGATIVE); CANNABINOID SCREEN, URINE POSITIVE (NEGATIVE); COCAINE SCREEN URINE NEGATIVE (NEGATIVE); METHADONE STAT NEGATIVE (NEGATIVE); METHAMPHETAMINE SCREEN URINE S NEGATIVE (NEGATIVE); OPIATE SCREEN URINE NEGATIVE (NEGATIVE); OXYCODONE STAT NEGATIVE (NEGATIVE); PROPOXYPHENE STAT NEGATIVE (NEGATIVE); TRICYCLIC ANTIDEPRESSANTS SCRE NEGATIVE (NEGATIVE)
[2018-04-15 11:52] LABS: ALANINE AMINOTRANSFERASE 16 U/L (0-55); ALBUMIN 4.6 GM/DL (3.2-4.5); ALKALINE PHOSPHATASE 71 U/L (40-136); BILIRUBIN,TOTAL 0.3 MG/DL (0.1-1.0); BUN/CREATININE RATIO 17; CALCIUM 9.6 MG/DL (8.5-10.1); CARBON DIOXIDE 19 MMOL/L (21-32); CHLORIDE 107 MMOL/L (98-107); CREATININE SERUM 0.82 MG/DL (0.60-1.30); GFR ESTIMATED > 60; GLUCOSE 100 MG/DL (70-105); SODIUM 137 MMOL/L (135-145); TOTAL PROTEIN 7.3 GM/DL (6.4-8.2)
[2018-04-15 12:36] VITALS: BP 129/83
== END 2018-04-15 12:41 | disposition home or self-care (01) ==
LOC: EDUNIT# 10:22 → ER 10:24
DX: R42 Dizziness and giddiness (principal); R00.2 Palpitations; F41.9 Anxiety disorder, unspecified; F12.10 Cannabis abuse, uncomplicated; I10 Essential (primary) hypertension; F32.9 Major depressive disorder, single episode, unspecified; Z88.8 Allergy status to other drugs, medicaments and biological substances
CPT/HCPCS: 36415; 80053; 80306; 81000; 84443; 84484; 85025; 93005

== ENCOUNTER 2018-04-19 10:12 | Emergency (ER) | payer SELFPAY ==
[~2018-04-19] VITALS: Ht 177.8 cm; Wt 115.7 kg
[~2018-04-19 10:12] MED LIST changes: +HYDR25CA PO
[2018-04-19] MEDS ORDERED: KETOROLAC 30 MG/ML VIAL IVP STA (10:25)
[2018-04-19] MEDS ORDERED: NS IV 1000 ML 1,000 ML IV ONE (10:25)
[2018-04-19 10:31] LABS: BASOPHILS % (AUTO) 0 % (0-10); EOSINOPHILS # (AUTO) 0.2 10^3/uL (0.0-0.3); EOSINOPHILS % (AUTO) 3 % (0-10); HEMATOCRIT 44 % (40-54); HEMOGLOBIN 15.1 G/DL (13.3-17.7); LYMPHOCYTES # (AUTO) 2.4 X 10^3 (1.0-4.0); LYMPHOCYTES % (AUTO) 31 % (12-44); MEAN CORPUSCULAR HEMOGLOBIN 33 PG (25-34); MEAN CORPUSCULAR HGB CONC 35 G/DL (32-36); MEAN CORPUSCULAR VOLUME 94 FL (80-99); MEAN PLATELET VOLUME 10.1 FL (7.4-10.4); MONOCYTES # (AUTO) 0.4 X 10^3 (0.0-1.0); MONOCYTES % (AUTO) 6 % (0-12); NEUTROPHILS # (AUTO) 4.8 X 10^3 (1.8-7.8); NEUTROPHILS % (AUTO) 60 % (42-75); PLATELET COUNT 256 10^3/uL (130-400); RED BLOOD COUNT 4.63 10^6/uL (4.35-5.85); WHITE BLOOD COUNT 7.9 10^3/uL (4.3-11.0)
[2018-04-19] MEDS ORDERED: B/P (10:35)
[2018-04-19 10:50] LABS: ALANINE AMINOTRANSFERASE 25 U/L (0-55); ALBUMIN 4.6 GM/DL (3.2-4.5); ALKALINE PHOSPHATASE 62 U/L (40-136); BILIRUBIN,TOTAL 0.4 MG/DL (0.1-1.0); BUN/CREATININE RATIO 12; CALCIUM 9.6 MG/DL (8.5-10.1); CARBON DIOXIDE 20 MMOL/L (21-32); CHLORIDE 107 MMOL/L (98-107); CREATININE SERUM 0.83 MG/DL (0.60-1.30); GFR ESTIMATED > 60; GLUCOSE 104 MG/DL (70-105); POTASSIUM 4.6 MMOL/L (3.6-5.0); SODIUM 137 MMOL/L (135-145); TOTAL PROTEIN 7.3 GM/DL (6.4-8.2)
--- OUTSIDE RECORDS SUMMARY | 2018-04-19 10:51 | XMS REPORT | Continuity of Care Document ---
Author Author [facility] of [facility] of [facility] Address Unknown Phone Unavailable Allergies Active Description Code Type Severity Reaction Onset Reported/Identified Relationship to Patient Clinical Status Yes NO KNOWN DRUG ALLERGIES UNKNOWN NO KNOWN DRUG ALLERG Yes No Known Drug Allergies [id number] Drug Allergy Unknown N/A 04/05/2010 Yes Zoloft Drug Allergy N/A N/A 08/03/2010 Yes alprazolam [id number] Drug Allergy Unknown MAKES HIM VIOLE 11/27/2014 [...] JIM BRUCE MD 401.9 ESSENTIAL [facility]ENSION 04/09/2009 [facility].02 Over[facility] 04/09/2009 [facility] 401.9 ESSENTIAL HYPERTENSION 04/09/2009 JIM BRUCE MD 278.02 Overweight 04/09/2009 JIM BRUCE MD 401.9 ESSENTIAL HYPERTENSION 04/09/2009 JIM BRUCE MD 278.02 Overweight 04/09/2009 JIM BRUCE MD 401.9 ESSENTIAL HYPERTENSION 04/15/2009 LY ISIDRO DO 272.4 OTHER AND UNSPECIFIED HYPERLIPIDEMIA 04/15/2009 JANIS MD, JIM N 272.4 OTHER AND UNSPECIFIED HYPERLIPIDEMIA 04/15/2009 JIM BRUCE MD N 272.4 OTHER AND UNSPECIFIED HYPERLIPIDEMIA 04/15/2009 [facility], SHARDA R 272.4 OTHER AND UNSPECIFIED HYPERLIPIDEMIA 04/15/2009 JIM BRUCE MD N 272.4 OTHER AND UNSPECIFIED HYPERLIPIDEMIA 04/15/2009 JIM BRUCE MD N 272.4 OTHER AND UNSPECIFIED HYPERLIPIDEMIA 06/03/2009 LY ISIDRO DO K 466.0 BRONCHITIS, ACUTE 06/03/2009 JIM BRUCE MD N 466.0 BRONCHITIS, ACUTE 06/03/2009 JIM BRUCE MD N 466.0 BRONCHITIS, ACUTE 06/03/2009 [facility], SHARDA R 466.0 BRONCHITIS, ACUTE 06/03/2009 JIM [...] MD N 401.1 BENIGN ESSENTIAL HYPERTENSION 07/29/2010 [facility], HSARDA R 300.4 DYSTHYMIC DISORDER 07/29/2010 [facility], SHARDA R 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 07/29/2010 [facility], SHARDA R 401.1 BENIGN ESSENTIAL HYPERTENSION 07/29/2010 JIM BRUCE MD N 300.4 DYSTHYMIC DISORDER 07/29/2010 JANISJIM ALBA MD 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 07/29/2010 JIM BRUCE MD N 401.1 BENIGN ESSENTIAL HYPERTENSION 07/29/2010 JIM BRUCE MD N 300.4 DYSTHYMIC DISORDER 07/29/2010 IJM BRUCE MD 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 07/29/2010 JIM BRUCE MD 401.1 BENIGN ESSENTIAL HYPERTENSION 08/08/2010 Ot 523.40 08/08/2010 Ot 525.9 03/22/2013 MICHAEL SRIDEVI SALAZAR K Ot 574.20 CHOLELITHIASIS NOS 03/22/2013 MICHAEL , SRIDEVI K Ot 789.00 ABDOMINAL PAIN, UNSPECIFIED SITE 03/29/2013 DWAINE SALAZAR LY K 311 DEPRESSIVE DISORDER NOT ELSEWHERE CLASSIFIED 03/29/2013 JMI BRUCE MD 311 DEPRESSIVE DISORDER NOT ELSEWHERE CLASSIFIED 03/29/2013 JIM BRUCE MD 311 DEPRESSIVE DISORDER NOT ELSEWHERE CLASSIFIED 03/29/2013 [facility], SHARDA R 311 DEPRESSIVE DISORDER NOT ELSEWHERE CLASSIFIED 03/29/2013 JIM BRUCE MD 311 DEPRESSIVE DISORDER NOT ELSEWHERE CLASSIFIED 03/29/2013 JIM BRUCE MD 311 DEPRESSIVE DISORDER NOT ELSEWHERE CLASSIFIED 05/07/2013 JIM BRUCE MD N 530.81 GERD 05/07/2013 JIM BRUCE MD 530.81 GERD 05/07/2013 [facility], SHARDA R 530.81 GERD 05/07/2013 JIM BRUCE MD 530.81 GERD 05/07/2013 JIM BRUCE MD 530.81 GERD 08/12/2013 PETRA KWAN MD Ot 401.9 HYPERTENSION NOS 08/12/2013 PETRA KWAN MD Ot 786.52 PAINFUL RESPIRATION 08/12/2013 PETRA KWAN MD Ot 786.59 CHEST PAIN NEC 08/13/2013 [facility], SHARDA R 309.28 AD ADJ D/O W [...] SANDERS DO Ot 574.20 05/13/2015 [place] JONATHON SALAZAR Ot 574.20 05/13/2015 [place] JONATHON SALAZAR Ot V72.63 05/13/2015 [place] JONATHON SALAZAR Ot V74.8 05/27/2015 SANDERS JONATHON SALAZAR Ot 574.20 05/27/2015 SANDERS JONATHON SALAZAR Ot V72.63 05/27/2015 SAND[place] JONATHON SALAZAR Ot V74.8 02/11/2017 Brokob, Renae A 466.0 ACUTE BRONCHITIS 02/11/2017 Brokob, Renae A J20.9 ACUTE BRONCHITIS, UNSPECIFIED 03/16/2017 [place] JONATHON SALAZAR Ot 574.20 CHOLELITHIASIS NOS 03/16/2017 [place] JONATHON SALAZAR Ot V72.63 PRE-PROCEDURAL LABORATORY EXAMINATION 03/16/2017 [place] JONATHON SALAZAR Ot V74.8 SCREEN-BACTERIAL DIS NEC 03/16/2017 SANDERSJONATHON HALL DO Ot 574.20 CHOLELITHIASIS NOS 03/16/2017 [place] JONATHON SALAZAR Ot V72.63 PRE-PROCEDURAL LABORATORY EXAMINATION 03/16/2017 [place] JONATHON SALAZAR Ot V74.8 SCREEN-BACTERIAL DIS NEC Procedures Code Description [place] [address] ROUTINE VENIPUNCTURE 05/08/2013 05686 CMP 05/08/2013 08603 LIPID PANEL 05/08/2013 32188 PSYCH DIAGNOSTIC EVALUATION 08/14/2013 43796 ROUTINE VENIPUNCTURE 12/12/2013 06569 CMP 12/12/2013 92775 LIPID PANEL 12/12/2013 Results Test Result Range [...] - 01/01/18 14:30 TSH 1.55 mIU/L 0.40-4.50 Complete urinalysis with reflex to culture - 04/15/18 11:20 Urine color determination YELLOW NRG Urine clarity determination CLEAR NRG Urine pH measurement by test strip 6.5 5-9 Specific gravity of urine by test strip 1.005 1.016- 1.022 Urine protein assay by test strip, semi-quantitative NEGATIVE NEGATIVE Urine glucose detection by automated test strip NEGATIVE NEGATIVE Erythrocytes detection in urine sediment by light microscopy NEGATIVE NEGATIVE Urine ketones detection by automated test strip NEGATIVE NEGATIVE Urine nitrite detection by test strip NEGATIVE NEGATIVE Urine total bilirubin detection by test strip NEGATIVE NEGATIVE Urine urobilinogen measurement by automated test strip (mass/volume) NORMAL NORMAL Urine leukocyte esterase detection by dipstick NEGATIVE NEGATIVE Automated urine sediment erythrocyte count by microscopy (number/high power field) NONE NRG Automated urine sediment leukocyte count by microscopy (number/high power field ) RARE NRG Bacteria detection in urine sediment by light microscopy TRACE NRG Crystals detection in urine sediment by light microscopy NONE NRG Casts detection in urine sediment by light microscopy NONE NRG Mucus detection in urine sediment by light microscopy NEGATIVE NRG Complete urinalysis with reflex to culture NO NRG Urine drug screening test - 04/15/18 11:20 Urine phencyclidine detection by screening method NEGATIVE [...] NEGATIVE NEGATIVE Urine propoxyphene detection NEGATIVE NEGATIVE Complete blood count (CBC) with automated white blood cell (WBC) differential - 04/15/18 11:25 Blood leukocytes automated count (number/volume) 7.2 10*3/uL 4.3-11.0 Blood erythrocytes automated count (number/volume) 4.71 10*6/uL 4.35-5.85 Venous blood hemoglobin measurement (mass/volume) 15.3 g/dL 13.3-17.7 Blood hematocrit (volume fraction) 44 % 40-54 Automated erythrocyte mean corpuscular volume 94 [foz_us] 80-99 Automated erythrocyte mean corpuscular hemoglobin (mass per erythrocyte) 33 pg 25-34 Automated erythrocyte mean corpuscular hemoglobin concentration measurement ( mass/volume) 35 g/dL 32-36 Automated erythrocyte distribution width ratio 11.8 % 10.0-14.5 Automated blood platelet count (count/volume) 227 10*3/uL 130-400 Automated blood platelet mean volume measurement 10.3 [foz_us] 7.4-10.4 Automated blood neutrophils/100 leukocytes 53 % 42-75 Automated blood lymphocytes/100 leukocytes 37 % 12-44 Blood monocytes/100 leukocytes 6 % 0-12 Automated blood eosinophils/100 leukocytes 3 % 0-10 Automated blood basophils/100 leukocytes 0 % 0-10 Blood neutrophils automated count (number/volume) 3.8 10*3 1.8-7.8 Blood lymphocytes automated count (number/volume) 2.7 10*3 1.0-4.0 Blood monocytes automated count (number/volume) 0.5 10*3 0.0-1.0 Automated eosinophil count 0.2 10*3/uL 0.0-0.3 Automated blood basophil count (count/volume) 0.0 10*3/uL 0.0-0.1 Comprehensive metabolic panel - 04/15/18 11:25 Serum or plasma sodium measurement (moles/volume) 137 mmol/L 135-145 Serum or plasma potassium measurement (moles/volume) 5.0 mmol/L 3.6-5.0 Serum or plasma chloride measurement (moles/volume) 107 mmol/L 98-107 Carbon dioxide 19 mmol/L 21-32 Serum or plasma anion gap determination (moles/volume) 11 mmol/L 5-14 Serum or plasma urea nitrogen measurement (mass/volume) 14 mg/dL 7-18 Serum or plasma creatinine measurement (mass/volume) 0.82 mg/dL 0.60-1.30 Serum or plasma urea nitrogen/creatinine mass ratio 17 NRG Serum or plasma creatinine measurement with calculation of estimated glomerular filtration rate > NRG Serum or plasma glucose measurement (mass/volume) 100 mg/dL 70-105 Serum or plasma calcium measurement (mass/volume) 9.6 mg/dL 8.5-10.1 Serum or plasma total bilirubin measurement (mass/volume) 0.3 mg/dL 0.1-1.0 Serum or plasma alkaline phosphatase measurement (enzymatic activity/volume) 71 U/L 40-136 Serum or plasma aspartate aminotransferase measurement (enzymatic activity/ volume) 15 U/L 5-34 Serum or plasma alanine aminotransferase measurement (enzymatic activity/volume ) 16 U/L 0-55 Serum or plasma protein measurement (mass/volume) 7.3 g/dL 6.4-8.2 Serum or plasma albumin measurement (mass/volume) 4.6 g/dL 3.2-4.5 Serum or plasma troponin i.cardiac measurement (mass/volume) - 04/15/18 11:25 Serum or plasma troponin i.cardiac measurement (mass/volume) < ng/ mL <0.30 THYROID STIMULATING HORMONE - 04/15/18 11:25 THYROID STIMULATING HORMONE 0.78 u[iU]/mL 0.35-4.94 Complete blood count (CBC) with automated white blood cell (WBC) differential - 04/19/18 10:20 Blood leukocytes automated count (number/volume) 7.9 10*3/uL 4.3-11.0 Blood erythrocytes automated count (number/volume) 4.63 10*6/uL 4.35-5.85 Venous blood hemoglobin measurement (mass/volume) 15.1 g/dL 13.3-17.7 Blood hematocrit (volume fraction) 44 % 40-54 Automated erythrocyte mean corpuscular volume 94 [foz_us] 80-99 Automated erythrocyte mean corpuscular hemoglobin (mass per erythrocyte) 33 pg 25-34 Automated erythrocyte mean corpuscular hemoglobin concentration measurement ( mass/volume) 35 g/dL 32-36 Automated erythrocyte distribution width ratio 12.0 % 10.0-14.5 Automated blood platelet count (count/volume) 256 10*3/uL 130-400 Automated blood platelet mean volume measurement 10.1 [foz_us] 7.4-10.4 Automated blood neutrophils/100 leukocytes 60 % 42-75 Automated blood lymphocytes/100 leukocytes 31 % 12-44 Blood monocytes/100 leukocytes 6 % 0-12 Automated blood eosinophils/100 leukocytes 3 % 0-10 Automated blood basophils/100 leukocytes 0 % 0-10 Blood neutrophils automated count (number/volume) 4.8 10*3 1.8-7.8 Blood lymphocytes automated count (number/volume) 2.4 10*3 1.0-4.0 Blood monocytes automated count (number/volume) 0.4 10*3 0.0-1.0 Automated eosinophil count 0.2 10*3/uL 0.0-0.3 Automated blood basophil count (count/volume) 0.0 10*3/uL 0.0-0.1 Encounters ACCT No. Visit Date/Time Discharge Status Pt. Type Provider Facility Loc./Unit Complaint [id number] 12/12/2013 10:09:00 12/12/2013 23:59:59 CLS Outpatient JIM BRUCE MD [id number] 08/20/2013 14:13:00 08/20/2013 23:59:59 CLS Outpatient JIM BRUCE MD [id number] 08/13/2013 12:46:00 08/13/2013 23:59:59 [id number] 05/08/2013 09:23:00 05/08/2013 23:59:59 CLS Outpatient JIM BRUCE MD [id number] 05/07/2013 10:12:00 05/07/2013 23:59:59 CLS Outpatient JIM BRUCE MD [id number] 03/29/2013 14:38:00 03/29/2013 23:59:59 CLS Outpatient LY ISIDRO DO [id number] 02/11/2017 22:22:00 02/11/2017 23:22:00 DIS Outpatient [facility] ER [id number] 02/11/2017 22:58:40 Document Registration [id number] 04/15/2018 10:24:00 04/15/2018 12:41:00 DIS Emergency EM HOFF APRN [facility] ER HEART RACING,DIZZY [id number] 03/16/2017 12:06:00 03/16/2017 13:59:00 DIS Emergency EM HOFF APRN [facility] ER VERTIGO WHILE DRIVING [id number] 12/04/2014 06:00:00 12/04/2014 15:00:00 DIS Outpatient JONATHON SANDERS DO [facility] SDC GALLSTONES [id number] 11/27/2014 10:29:00 11/27/2014 23:59:59 CLS Outpatient SANDERS JONATHON SALAZAR [facility] PREOP GALLSTONES [id number] 08/13/2014 18:37:00 08/13/2014 21:10:00 DIS Emergency VIVI CHAPMAN [facility] ER SUICIDAL IDEATION [id number] 07/20/2014 02:13:00 07/20/2014 04:14:00 DIS Emergency SRIDEVI RODRIGUEZ DO [facility] ER ABD/BACK PAIN [id number] 01/19/2014 20:11:00 01/19/2014 23:59:59 CLS Emergency [id number] 08/12/2013 18:54:00 08/12/2013 20:58:00 DIS Emergency PETRA KWAN MD [facility] ER CHEST WALL PAIN [id number] 03/22/2013 19:19:00 03/22/2013 21:43:00 DIS Emergency MICHAEL SALAZAR SRIDEVI Duarte [facility] ER ABD PAIN [id number] 04/30/2018 14:30:00 PEN Preadmit EM HOFF APRN [facility] CARD PALPATIONS [id number] 04/19/2018 10:32:00 Document Registration [id number] 08/08/2010 00:33:00 Document Registration [id number] 04/05/2010 09:38:00 Document Registration [id number] 01/01/2018 13:20:00 01/01/2018 23:59:59 [facility] Outpatient DARWIN GAMINO LAC [facility] [id number] 01/01/2018 13:20:00 Document Registration [id number] 04/14/2017 09:20:00 Document Registration
[2018-04-19] MEDS ORDERED: LIDOCAINE 2% VISCOUS 15 ML UDC PO ONE (11:00)
[2018-04-19] MEDS ORDERED: ANTACID SUSP 30 ML UDC (MYLANTA) PO ONE (11:00)
[2018-04-19] MEDS ORDERED: PANTOPRAZOLE 40 MG (PROTONIX) VIAL IV ONE (11:00)
--- OUTSIDE RECORDS SUMMARY | 2018-04-19 11:20 | XMS REPORT | Continuity of Care Document ---
Author Author [facility] of [facility] C[facility] of [facility] Address Unknown Phone Unavailable Allergies Active Description Code Type Severity Reaction Onset Reported/Identified Relationship to Patient Clinical Status Yes NO KNOWN DRUG ALLERGIES UNKNOWN NO KNOWN DRUG ALLERG Yes No Known Drug Allergies [id number] Drug Allergy Unknown N/A 04/05/2010 Yes Zoloft Drug Allergy N/A N/A 08/03/2010 Yes alprazolam [id number] Drug Allergy Unknown MAKES HIM VIOLE 11/27/2014 [...] JIM BRUCE MD 401.9 ESSENTIAL HYPERTENSION 04/09/2009 [facility] 278.02 Overweight 04/09/2009 [facility] 401.9 ESSENTIAL HYPERTENSION 04/09/2009 JIM BRUCE MD 278.02 Overweight 04/09/2009 JIM BRUCE MD 401.9 ESSENTIAL HYPERTENSION 04/09/2009 JIM BRUCE MD 278.02 Overweight 04/09/2009 JIM BRUCE MD 401.9 ESSENTIAL HYPERTENSION 04/15/2009 LY ISIDRO DO 272.4 OTHER AND UNSPECIFIED HYPERLIPIDEMIA 04/15/2009 JANIS MD, JIM N 272.4 OTHER AND UNSPECIFIED HYPERLIPIDEMIA 04/15/2009 JIM BRUCE MD N 272.4 OTHER AND UNSPECIFIED HYPERLIPIDEMIA 04/15/2009 [facility], SHARDA R 272.4 OTHER AND UNSPECIFIED HYPERLIPIDEMIA 04/15/2009 JIM BRUCE MD N 272.4 OTHER AND UNSPECIFIED HYPERLIPIDEMIA 04/15/2009 JIM BRUCE MD N 272.4 OTHER AND UNSPECIFIED HYPERLIPIDEMIA 06/03/2009 LY ISIDRO DO K 466.0 BRONCHITIS, ACUTE 06/03/2009 JIM BRUCE MD N 466.0 BRONCHITIS, ACUTE 06/03/2009 JIM BRUCE MD N 466.0 BRONCHITIS, ACUTE 06/03/2009 [facility], SHARDA R 466.0 BRONCHITIS, ACUTE [...] AND OTHER PSYCHOSTIMULANT DEPENDENCE IN REMISSION 07/29/2010 JMI BRUCE MD N 401.1 BENIGN ESSENTIAL HYPERTENSION 07/29/2010 JIM BRUCE MD N 300.4 DYSTHYMIC DISORDER 07/29/2010 JIM BRUCE MD N 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 07/29/2010 JIM BRUCE MD N 401.1 BENIGN ESSENTIAL HYPERTENSION 07/29/2010 [facility], SHARDA R 300.4 DYSTHYMIC DISORDER 07/29/2010 [facility], SHARDA R 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 07/29/2010 [facility], SHARDA R 401.1 BENIGN ESSENTIAL [...] 311 DEPRESSIVE DISORDER NOT ELSEWHERE CLASSIFIED 03/29/2013 [facility], SHARDA R 311 DEPRESSIVE DISORDER NOT ELSEWHERE CLASSIFIED 03/29/2013 JIM BRUCE MD 311 DEPRESSIVE DISORDER NOT ELSEWHERE CLASSIFIED 03/29/2013 JIM BRUCE MD 311 DEPRESSIVE DISORDER NOT ELSEWHERE CLASSIFIED 05/07/2013 JIM BRUCE MD N 530.81 GERD 05/07/2013 JIM BRUCE MD 530.81 GERD 05/07/2013 [facility], SHARDA R 530.81 GERD 05/07/2013 JIM BRUCE MD 530.81 GERD 05/07/2013 JIM BRUCE MD 530.81 GERD 08/12/2013 PETRA KWAN MD Ot 401.9 HYPERTENSION NOS 08/12/2013 PETRA KWAN MD Ot 786.52 PAINFUL RESPIRATION 08/12/2013 PETRA KWAN MD Ot 786.59 CHEST PAIN NEC 08/13/2013 [facility] SH[facility] R 309.28 AD ADJ [...] 05/13/2015 [place] JONATHON SALAZAR Ot V72.63 05/13/2015 [place] JONATHON SALAZAR Ot V74.8 05/27/2015 [place] JONATHON SALAZAR Ot 574.20 05/27/2015 [place] JONATHON SALAZAR Ot V72.63 05/27/2015 [place] JONATHON SALAZAR Ot V74.8 02/11/2017 Brokob, Renae A 466.0 ACUTE BRONCHITIS 02/11/2017 Brokob, Renae A J20.9 ACUTE BRONCHITIS, UNSPECIFIED 03/16/2017 [place] JONATHON SALAZAR Ot 574.20 CHOLELITHIASIS NOS 03/16/2017 [place] JONATHON SALAZAR Ot V72.63 PRE-PROCEDURAL LABORATORY EXAMINATION 03/16/2017 [place] JONATHON SALAZAR Ot V74.8 SCREEN-BACTERIAL DIS NEC 03/16/2017 SANDERSJONATHON HALL DO Ot 574.20 CHOLELITHIASIS NOS 03/16/2017 [place] JONATHON SALAZAR Ot V72.63 PRE-PROCEDURAL LABORATORY EXAMINATION 03/16/2017 DREX[place] JONATHON SALAZAR Ot V74.8 SCREEN-BACTERIAL DIS NEC Procedures Code Description [place] [address] ROUTINE VENIPUNCTURE 05/08/2013 14457 CMP 05/08/2013 29558 LIPID PANEL 05/08/2013 39880 PSYCH DIAGNOSTIC EVALUATION 08/14/2013 49605 ROUTINE VENIPUNCTURE 12/12/2013 96277 CMP 12/12/2013 61717 LIPID PANEL 12/12/2013 Results Test Result Range [...] blood basophil count (count/volume) 0.0 10*3/uL 0.0-0.1 Fibrin D-dimer FEU measurement in platelet poor plasma (mass/volume) - 10:20 Fibrin D-dimer FEU measurement in platelet poor plasma (mass/volume) 0.23 ug/mL 0.00-0.49 Comprehensive metabolic panel - 04/19/18 10:20 Serum or plasma sodium measurement (moles/volume) 137 mmol/L 135-145 Serum or plasma potassium measurement (moles/volume) 4.6 mmol/L 3.6-5.0 Serum or plasma chloride measurement (moles/volume) 107 mmol/L 98-107 Carbon dioxide 20 mmol/L 21-32 Serum or plasma anion gap determination (moles/volume) 10 mmol/L 5-14 Serum or plasma urea nitrogen measurement (mass/volume) 10 mg/dL 7-18 Serum or plasma creatinine measurement (mass/volume) 0.83 mg/dL 0.60-1.30 Serum or plasma urea nitrogen/creatinine mass ratio 12 NRG Serum or plasma creatinine measurement with calculation of estimated glomerular filtration rate > NRG Serum or plasma glucose measurement (mass/volume) 104 mg/dL 70-105 Serum or plasma calcium measurement (mass/volume) 9.6 mg/dL 8.5-10.1 Serum or plasma total bilirubin measurement (mass/volume) 0.4 mg/dL 0.1-1.0 Serum or plasma alkaline phosphatase measurement (enzymatic activity/volume) 62 U/L 40-136 Serum or plasma aspartate aminotransferase measurement (enzymatic activity/ volume) 20 U/L 5-34 Serum or plasma alanine aminotransferase measurement (enzymatic activity/volume ) 25 U/L 0-55 Serum or plasma protein measurement (mass/volume) 7.3 g/dL 6.4-8.2 Serum or plasma albumin measurement (mass/volume) 4.6 g/dL 3.2-4.5 Serum or plasma troponin i.cardiac measurement (mass/volume) - 04/19/18 10:20 Serum or plasma troponin i.cardiac measurement (mass/volume) < ng/ mL <0.30 Encounters ACCT No. Visit Date/Time Discharge Status Pt. Type Provider Facility Loc./Unit Complaint [id number] 12/12/2013 10:09:00 12/12/2013 23:59:59 CLS Outpatient JIM BRUCE MD [id number] 08/20/2013 14:13:00 08/20/2013 23:59:59 CLS Outpatient JIM BRUCE MD [id number] 08/13/2013 12:46:00 08/13/2013 23:59:59 CLS Outpatient SHARDA BURTON [id number] 05/08/2013 09:23:00 05/08/2013 23:59:59 CLS Outpatient JIM BRUCE MD [id number] 05/07/2013 10:12:00 05/07/2013 23:59:59 CLS Outpatient JIM BRUCE MD [id number] 03/29/2013 14:38:00 03/29/2013 23:59:59 CLS Outpatient LY ISIDRO DO [id number] 02/11/2017 22:22:00 02/11/2017 23:22:00 DIS Outpatient Randy [facility] ER [id number] 02/11/2017 22:58:40 Document Registration [id number] 04/15/2018 10:24:00 04/15/2018 12:41:00 DIS Emergency EM HOFF APRN [facility] ER HEART RACING,DIZZY [id number] 03/16/2017 12:06:00 03/16/2017 13:59:00 DIS Emergency EM HOFF APRN [facility] ER VERTIGO WHILE DRIVING [id number] 12/04/2014 06:00:00 12/04/2014 15:00:00 DIS Outpatient JONATHON SANDERS DO [facility] SDC GALLSTONES [id number] 11/27/2014 10:29:00 11/27/2014 23:59:59 CLS Outpatient JONATHON SANDERS DO [facility] PREOP GALLSTONES [id number] 08/13/2014 18:37:00 08/13/2014 21:10:00 DIS Emergency VIVI CHAPMAN [facility] ER SUICIDAL IDEATION [id number] 07/20/2014 02:13:00 07/20/2014 04:14:00 DIS Emergency SRIDEVI RODRIGUEZ DO [facility] ER ABD/BACK PAIN [id number] 01/19/2014 20:11:00 01/19/2014 23:59:59 CLS Emergency [id number] 08/12/2013 18:54:00 08/12/2013 20:58:00 DIS Emergency PETRA KWAN MD [facility] ER CHEST WALL PAIN [id number] 03/22/2013 19:19:00 03/22/2013 21:43:00 DIS Emergency SRIDEVI RODRIGUEZ DO [facility] ER ABD PAIN [id number] 04/30/2018 14:30:00 PEN Preadmit EM HOFF [employer] RO[employer]ER [facility] CARD PALPATIONS [id number] 04/19/2018 10:32:00 Document Registration [id number] 08/08/2010 00:33:00 Document Registration [id number] 04/05/2010 09:38:00 Document Registration [id number] 01/01/2018 13:20:00 01/01/2018 23:59:59 [facility] Outpatient DARWIN GAMINO LAC [facility] [id number] 01/01/2018 13:20:00 Document Registration [id number] 04/14/2017 09:20:00 Document Registration
--- NOTE | 2018-04-19 11:21 | ED Cardiac General ---
History of Present Illness General Chief Complaint: Chest Pain Stated Complaint: ORTHOSTATIC HYPOTENSION Nursing Triage Note: PT CO OF CHEST PAIN STATES CENTER TO R SIDE OF CHEST RAIDIATES TO R SHOULDER, STATES PAIN/PRESSURE INTERMITTENT 12/19. CO OF DIZZINESS. PT WAS SEEN IN ED ON MONDAY. PT STATES SMOKES POT NEARLY EVERYDAY. PT STATES HAS JUST BEEN LAYING IN BED PAST FEW DAYS, PT IS SCHEDULED TO HAVE EVENT MONITOR WHEN AVAILABLE. PT STATES THIS HAS HAPPENED SEVERAL TIMES SINCE WAS 11YEARS OLD Source: patient Exam Limitations: no limitations History of Present Illness Date Seen by Provider: Apr 19, 2018 Time Seen by Provider: 10:27 Initial Comments Here with report of central chest pain that radiates to the right shoulder and his back. Is been going on intermittently for a few days. Woke up this morning and it is worse. Reports pressure to his chest. Seen a few days ago for the same with negative workup. Does have follow-up with cardiology next week. Does have history of anxiety and states that that is probably a large component of this. Also has problems with reflux disease. Previously has had cholecystectomy. Does have history of hypertension and takes medicines for that. Admits to smoking marijuana daily to every other day. He uses this to control his anxiety because the prescribed anxiety medicines don't work so is not on any of those right now. Timing/Duration: 3-4 days Severity: moderate Location: central Activities at Onset: emotional stress Prior CP/Workup: non-cardiac Modifying Factors: improves with rest NTG SL [place]: No ASA po [place]: No Associated Systoms: Chest Pain; No Fever/Chills, No Nausea/Vomiting, No Shortness of Air; Weakness Allergies and Home Medications Allergies Coded Allergies: alprazolam (Unverified Allergy, Unknown, MAKES HIM VIOLENT, 11/27/14) Home Medications Hydroxyzine Pamoate 25 Mg Capsule, 25 MG PO Q6H PRN for ANXIETY Prescribed by: EM HOFF on 04/15/18 1135 Promethazine HCl 25 Mg Tablet, 25 MG PO Q8H PRN for NAUSEA/VOMITING Prescribed by: EM HOFF on 03/16/17 1353 Patient Home Medication List Home Medication List Reviewed: Yes Review of Systems Review of Systems Constitutional: see HPI; No chills, No fever Respiratory: No Symptoms Reported Cardiovascular: See HPI, Chest Pain; Denies Edema Gastrointestinal: Denies Abdominal Pain, Denies Nausea, Denies Vomiting Genitourinary: No Symptoms Reported Musculoskeletal: see HPI; No joint pain; muscle pain Skin: no symptoms reported Psychiatric/Neurological: No Symptoms Reported All Other Systems Reviewed Negative Unless Noted: Yes Past Kyakzkq-Bxqblh-Lfyjwx Hx Past Med/Social Hx: Reviewed Nursing Past Med/Soc Hx Patient Social History Alcohol Use: Denies Use Recreational Drug Use: Yes (POT SMOKES EVERYOTHER DAY) Smoking Status: Current Everyday Smoker Type Used: Cigarettes Recent Foreign Travel: No Contact w/Someone Who Travel: No Recent Infectious Disease Expo: No Recent Hopitalizations: No Immunizations Up To Date Tetanus Booster (TDap): Less than 5yrs Seasonal Allergies Seasonal Allergies: No Past Medical History Surgeries: Yes ( RIGHT inguinal hernia) Abdominal, Gallbladder Respiratory: No Cardiac: Yes (HAS NEVER TAKEN BP MEDS) Hypertension Neurological: No Gastrointestinal: Yes Gall Bladder Disease Musculoskeletal: No Endocrine: No Cancer: No Psychosocial: Yes Anxiety, Suicide Attempts, Depression Integumentary: No Blood Disorders: No Adverse Reaction/Blood Tranf: No Family Medical History Reviewed Nursing Family Hx No Pertinent Family Hx Physical Exam Vital Signs Vital Signs - First Documented 04/19/18 10:27 Temp 97.1 Pulse 82 Resp 36 B/P (MAP) 154/94 (114) Pulse Ox 99 O2 Delivery Room Air Capillary Refill : Less Than 3 Seconds Height, Weight, BMI Height: 5'10.00" Weight: 255lbs. 0oz. 115.698390ds; BMI Method:Stated General Appearance: No Apparent Distress, WD/WN HEENT: PERRL/EOMI, Pharynx Normal, Other (disconjugate gaze) Neck: Non Tender, Supple Respiratory: Lungs Clear, Normal Breath Sounds Cardiovascular: Regular Rate, Rhythm, No Murmur Gastrointestinal: Non Tender, Soft Extremity: Normal Capillary Refill, Normal Inspection, Normal Range of Motion, Non Tender, No Calf Tenderness Neurologic/Psychiatric: Alert, Oriented x3 Skin: Normal Color, Warm/Dry Progress/Results/Core Measures Results/Orders Lab Results Laboratory Tests Test 04/19/18 10:20 Range/Units White Blood Count 7.9 4.3-11.0 10^3/uL Red Blood Count 4.63 4.35-5.85 10^6/uL Hemoglobin 15.1 13.3-17.7 G/DL Hematocrit 44 40-54 % Mean Corpuscular Volume 94 80-99 FL Mean Corpuscular Hemoglobin 33 25-34 PG Mean Corpuscular Hemoglobin Concent 35 32-36 G/DL Red Cell Distribution Width 12.0 10.0-14.5 % Platelet Count 256 130-400 10^3/uL Mean Platelet Volume 10.1 7.4-10.4 FL Neutrophils (%) (Auto) 60 42-75 % Lymphocytes (%) (Auto) 31 12-44 % Monocytes (%) (Auto) 6 0-12 % Eosinophils (%) (Auto) 3 0-10 % Basophils (%) (Auto) 0 0-10 % Neutrophils # (Auto) 4.8 1.8-7.8 X 10^3 Lymphocytes # (Auto) 2.4 1.0-4.0 X 10^3 Monocytes # (Auto) 0.4 0.0-1.0 X 10^3 Eosinophils # (Auto) 0.2 0.0-0.3 10^3/uL Basophils # (Auto) 0.0 0.0-0.1 10^3/uL D-Dimer 0.23 0.00-0.49 UG/ML Sodium Level 137 135-145 MMOL/L Potassium Level 4.6 3.6-5.0 MMOL/L Chloride Level 107 98-107 MMOL/L Carbon Dioxide Level 20 L 21-32 MMOL/L Anion Gap 10 5-14 MMOL/L Blood Urea Nitrogen 10 7-18 MG/DL Creatinine 0.83 0.60-1.30 MG/DL Estimat Glomerular Filtration Rate > 60 BUN/Creatinine Ratio 12 Glucose Level 104 70-105 MG/DL Calcium Level 9.6 8.5-10.1 MG/DL Corrected Calcium 8.5-10.1 MG/DL Total Bilirubin 0.4 0.1-1.0 MG/DL Aspartate Amino Transf (AST/SGOT) 20 5-34 U/L Alanine Aminotransferase (ALT/SGPT) 25 0-55 U/L Alkaline Phosphatase 62 40-136 U/L Troponin I < 0.30 <0.30 NG/ML Total Protein 7.3 6.4-8.2 GM/DL Albumin 4.6 H 3.2-4.5 GM/DL My Orders Orders - TEODORA SANCHEZ MD Ekg Tracing (04/19/18 10:14) Cbc With Automated Diff (04/19/18 10:25) Comprehensive Metabolic Panel (04/19/18 10:25) Fibrin Degradation Products (04/19/18 10:25) Troponin I (04/19/18 10:25) Chest Pa/Lat (2 View) (04/19/18 10:25) Saline Lock/Iv-Start (04/19/18 10:25) Ns Iv 1000 Ml (Sodium Chloride 0.9%) (04/19/18 10:25) Ketorolac Injection (Toradol Injection) (04/19/18 10:25) Pantoprazole Injection (Protonix Injecti (04/19/18 11:00) Lidocaine 2% Viscous 15 Ml (Xylocaine Vi (04/19/18 11:00) Antacid Suspension (Mylanta Suspension (04/19/18 11:00) Medications Given in ED Current Medications Medications Dose Ordered Sig/Lakshmi Route Start Time Stop Time Status Last Admin Dose Admin Al Hydrox/Mg Hydrox/Simethicone 30 ml ONCE ONCE PO 04/19/18 11:00 04/19/18 11:01 DC 04/19/18 11:00 30 ML Lidocaine HCl 15 ml ONCE ONCE PO 04/19/18 11:00 04/19/18 11:01 DC 04/19/18 11:00 15 ML Pantoprazole 40 mg ONCE ONCE IV 04/19/18 11:00 04/19/18 11:01 DC 04/19/18 11:00 40 MG Sodium Chloride 1,000 ml @ 0 mls/hr Q0M ONCE IV 04/19/18 10:25 04/19/18 10:28 DC 04/19/18 10:39 1,000 MLS/HR Vital Signs/I&O 04/19/18 04/19/18 10:27 10:27 Temp 97.1 Pulse 82 Resp 36 B/P (MAP) 154/94 (114) Pulse Ox 99 O2 Delivery Room Air Blood Pressure Mean: 114 Progress Progress Note : Progress Note Seen and evaluated. IV, labs, EKG and chest x-ray ordered. Normal saline 1 L bolus, Toradol 30 mg IV, Protonix 40 mg IV and GI cocktail ordered. Monitor patient. 1200: Overall doing a little better. No acute findings. Discharged home with return precautions. Patient verbalize understanding instructions and agreement with plan. Diagnostic Imaging Diagonstic Imaging: Xray Plain Films/CT/US/NM/MRI: chest Comments NAME: FERNANDO GUERRERO [facility] REC#: [id number] PT STATUS: REG ER : 1985 PHYSICIAN: TEODORA SANCHEZ MD ADMIT DATE: 04/19/18/ER Signed Date of Exam: 04/19/18 CHEST PA/LAT (2 VIEW) INDICATION: Dizziness, syncope, numbness, tightness, pressure in chest.. TECHNIQUE: Two view chest 11:19 AM CORRELATION STUDY: 08/12/2013 FINDINGS: The heart size, mediastinal configuration and pulmonary vasculature are within normal limits. The lungs are clear with no consolidating infiltrate. There is no significant pleural effusion or pneumothorax. Asymmetric eventration right diaphragm. Visualized osseous structures are unremarkable. IMPRESSION: 1. No radiographic evidence for acute abnormality of the chest. Dictated by: Dictated on workstation # [id number] Dict: 04/19/18 1141 Trans: 04/19/18 1141 Interpreted by: LUDY EDWARD DO Electronically signed by: LUDY EDWARD DO 04/19/18 1141 Departure Impression Primary Impression: Chest pain Qualified Codes: R07.9 - Chest pain, unspecified Additional Impression: Gastroesophageal reflux disease Qualified Codes: K21.9 - Gastro-esophageal reflux disease without esophagitis Disposition: 01 HOME, SELF-CARE Condition: Stable Departure-Patient Inst. Decision time for Depature: 12:05 Referrals: [facility] (PCP/Family) Primary Care Physician Patient Instructions: Chest Pain (DC), Acid Reflux (Gastroesophageal Reflux Disease), Adult (DC) Add. Discharge Instructions: All discharge instructions reviewed with patient and/or family. Voiced understanding. Take medications as directed. Follow-up with your DrSteven in a few days for recheck. You should initiate zusf-byr-skgaoih omeprazole 20 mg daily for the next 2 weeks and may extend that up to 6 weeks total. Talk with your doctor about this is a may be old to prescribe another medicine for your stomach. Also talked to them about your anxiety. Drink plenty of fluids. Decrease marijuana use. Return for worse pain, fever, vomiting, weakness, breathing problems or other concerns as needed. TEODORA SANCHEZ MD Apr 19, 2018 11:20
--- NOTE | 2018-04-19 11:44 | Diagnostic Imaging Report ---
INDICATION: Dizziness, syncope, numbness, tightness, pressure in chest.. TECHNIQUE: Two view chest 11:19 AM CORRELATION STUDY: 08/12/2013 FINDINGS: The heart size, mediastinal configuration and pulmonary vasculature are within normal limits. The lungs are clear with no consolidating infiltrate. There is no significant pleural effusion or pneumothorax. Asymmetric eventration right diaphragm. Visualized osseous structures are unremarkable. IMPRESSION: 1. No radiographic evidence for acute abnormality of the chest. Dictated by: Dictated on workstation # [id number]
[2018-04-19 12:13] VITALS: BP 130/76
== END 2018-04-19 12:13 | disposition home or self-care (01) ==
LOC: EDUNIT# 10:12 → ER 10:13 → UNDOADMOB 11:14 → 4TH 11:14 → ER 12:13
DX: R07.89 Other chest pain (principal); K21.9 Gastro-esophageal reflux disease without esophagitis; I10 Essential (primary) hypertension; F41.9 Anxiety disorder, unspecified; F32.9 Major depressive disorder, single episode, unspecified; F17.210 Nicotine dependence, cigarettes, uncomplicated; F12.10 Cannabis abuse, uncomplicated; Z87.19 Personal history of other diseases of the digestive system; Z91.5 Personal history of self-harm; Z87.448 Personal history of other diseases of urinary system; Z90.49 Acquired absence of other specified parts of digestive tract; Z88.8 Allergy status to other drugs, medicaments and biological substances
CPT/HCPCS: 36415; 71046; 80053; 84484; 85025; 85379; 93005

== ENCOUNTER 2018-04-22 16:13 | Emergency (ER) | payer SELFPAY ==
[~2018-04-22] VITALS: Ht 177.8 cm; Wt 115.7 kg
[~2018-04-22 16:13] MED LIST changes: +B/P
--- OUTSIDE RECORDS SUMMARY | 2018-04-22 16:18 | XMS REPORT ---
Author Author BENITEZ GE [facility] Address [address] [place] [address] Care Team Providers Care Pharmacist Critical Care Name Role Phone BENITEZ GE Unavailable PROBLEMS Type Condition ICD9-CM Code [id number] Code Onset Dates Condition Status SNOMED Code Problem Essential hypertension I10 Active 24086420 Problem Esophageal reflux K21.9 Active 282554788 Problem Mixed emotional features as adjustment reaction F43.23 Active 33008502 Problem Depressive disorder, not elsewhere classified F32.9 Active 50660884 ALLERGIES No Information ENCOUNTERS Encounter Location Date Diagnosis [place] [id number] [address] Apr, [facility] [address] [address] Apr, [facility] [address] [address] Apr, [facility] [address] [address] Mar, [facility] [address] [address] Mar, Essential hypertension I10 [facility] [address] [address] Feb, [facility] [address] [address] Jan, Essential hypertension I10 and Dizziness R42 [facility] [address] [address] Dec, [facility] [address] [address] Dec, Dizziness R42 and Elevated blood pressure reading R03.0 [facility] [address] [place] [address] [id number] [place] [address] 985182- [address] Apr, [facility] [address] [id number] [place] [address] 2546 Apr, Family history of cardiovascular disease Z82.49 [facility] [address] [id number] [place] [address]- [address] Mar, Syncope, unspecified syncope type R55 and Family history of cardiovascular disease Z82.49 [facility] [address] [place] [address] [id number] [place] [id number] Dec, Dental caries K02.9 [facility] [address] [id number] [place] [address]- [address] Dec, Dental examination Z01.20 [facility] [address] [id number] Sep, Dental examination Z01.20 [facility] [address] [address] [id number] [place] [address]- [address] Jun, Right hand pain M79.641 [facility] [address] [address] [id number] [place] [address] 559247- 2686 Nov, [facility] [id number] [place] [address]- 25[address] Nov, [facility] [address] [address] [id number] [place] [address]- 6046 Nov, [facility] [address] [id number] [place] [address] [id number]- 0212 October, Gallstones 574.20 [facility] [address] [id number] [place] [address]- 9226 Sep, [facility] [id number] [place] [address] 359571- 1756 Sep, [facility] [place] [facility] [address] [id number] [place] [address] Jan, [facility] [address] [id number] [place] [address] Jan, [facility] [place] [facility] [address] [id number] [place] [address]- 8[address] Dec, [facility] [place] [facility] [address] [id number] [place] [address] 9[address] Dec, [facility] [place] [facility] [address] [id number] [place] [address]- 1478 Dec, [facility] [place] [facility] [address] [id number] [place] [address]- 6[address] Dec, [facility] [place] [facility] [address] [id number] [place] [address]- 7158 Nov, [facility] [place] [facility] [address] [id number] [place] [address]- 0[address] Nov, [facility] [place] [facility] [address] [id number] [place] [address] 65[address] October, [facility] [place] [facility] [address] [id number] [place] [address] 39[address] October, [facility] [address] [id number] [place] [address]- 4[address] Sep, [facility] [place] [facility] [address] [id number] [place] [address]- 7[address] Sep, [facility] [place] [facility] [address] [id number] [place] [address]- 244[address] Sep, [facility] [place] [facility] [address] [id number] [place] [address]- 6145 Sep, [facility] [place] [facility] [address] [id number] [place] [address]- 1554 Aug, [facility] [place] [facility] [address] [id number] [place] [address]- 68[address] Aug, [facility] [address] [id number] [place] [address]- 1440 Aug, [facility] [place] [facility] [address] [id number] [place] [address]- 5932 Aug, [facility] [place] [facility] [address] [id number] [place] [address]- 7632 May, [facility] [place] [facility] [address] [id number] [place] [address]- 6383 May, [facility] [place] [facility] [address] [id number] [place] [address]- 7093 May, [facility] [place] [facility] [address] [id number] [place] [address]- 2776 May, [facility] [place] [facility] [address] [facility] [id number] [place] [address] Apr, [facility] [place] [facility] [address] [id number] [place] [address]- 6923 Apr, [facility] [place] [facility] [address] [id number] [place] [address]- 7937 Apr, [facility] [place] [facility] [address] [facility] [id number], [place] [address] Apr, [facility] [place] [facility] [address] [facility] [id number], [place] [address] 90[address] Apr, [facility] [place] [facility] [address] [id number], [place] [address]- 64[address] Apr, [facility] [place] [facility] [address] [id number] [place] [address]- 35[address] Mar, [facility] [place] [facility] [address] [id number], [place] [address] 8[address] Mar, [facility] [place] [facility] [address] [facility] [id number], [place] [address]- [address] Jul, [facility] [place] [facility] [address] [id number], [place] [address] May, [facility] [address] [facility] [id number], [place] [address]- [address] May, [facility] [address] [facility] [id number], [place] [address]- 8[address] Apr, [facility] [address] [facility] [id number] [place] [address]- 245[address] Mar, IMMUNIZATIONS No Known Immunizations SOCIAL HISTORY [...]
--- OUTSIDE RECORDS SUMMARY | 2018-04-22 16:19 | XMS REPORT ---
Author Author BENITEZ GE [facility] Address [address] [place] [address] Care Team Providers Care Admitting Clerk Name Role Phone BENITEZ GE Unavailable PROBLEMS Type Condition ICD9-CM Code SYH54-IJ Code Onset Dates Condition Status SNOMED Code Problem Essential hypertension I10 Active 73175853 Problem Esophageal reflux K21.9 Active 575164872 Problem Mixed emotional features as adjustment reaction F43.23 Active 36196260 Problem Depressive disorder, not elsewhere classified F32.9 Active 20848303 ALLERGIES No Information ENCOUNTERS Encounter Location Date Diagnosis [place] [id number] [address] Apr, [facility] [address] [address] Apr, [facility] [address] [address]- [address] Apr, [facility] [address] [address]- [address] Mar, [facility] [address] [address]- [address] Mar, Essential hypertension I10 [facility] [address] [address]- [address] Feb, [facility] [address] [address]- [address] Jan, Essential hypertension I10 and Dizziness R42 [facility] [address] [address]- [address] Dec, [facility] [address] [address]- [address] Dec, Dizziness R42 and Elevated blood pressure reading R03.0 [facility] [address] [place] [id number] [place] [address] 850220- [address] Apr, [facility] [address] [place] [id number] [place] [address] 2546 Apr, Family history of cardiovascular disease Z82.49 [facility] [address] [place] [id number] [place] [address]- [address] Mar, Syncope, unspecified syncope type R55 and Family history of cardiovascular disease Z82.49 [facility] [address] [place] [id number] [place] [address] [id number] Dec, Dental caries K02.9 [facility] [address] [place] [id number] [place] [address]- 3476 Dec, Dental examination Z01.20 [facility] [address] [id number] Sep, Dental examination Z01.20 [facility] [address] [place] [id number] [place] [address]- 6216 Jun, Right hand pain M79.641 [facility] [address] [place] [id number] [place] [address] 871692- 8956 Nov, [facility] [address] [place] [address] 237[address]- 1046 Nov, [facility] [address] [place] [id number] [place] [address] 42461- 4716 Nov, [facility] [address] [place] [id number] [place] [address] [id number]- 5462 October, Gallstones 574.20 [facility] [address] [place] [address] [id number] [place] [address]- 3736 Sep, [facility] [address] [place] [address] 596350- 3376 Sep, [facility] [place] [facility] [address] [id number] [place] [address]- 3627 Jan, [facility] [address] [id number] [place] [address]- 2441 Jan, [facility] [place] [facility] [address] [id number] [place] [address]- 0656 Dec, [facility] [place] [facility] [address] [id number] [place] [address]- 2790 Dec, [facility] [place] [facility] [address] [id number] [place] [address]- 7508 Dec, [facility] [place] [facility] [address] [id number] [place] [address]- 3210 Dec, [facility] [place] [facility] [address] [id number] [place] [address]- 9536 Nov, [facility] [place] [facility] [address] [id number] [place] [address]- 3563 Nov, [facility] [place] [facility] [address] [id number] [place] [address]- 9385 October, [facility] [place] [facility] [address] [id number] [place] [address]- 0957 October, [facility] [address] [id number] [place] [address]- 4651 Sep, [facility] [place] [facility] [address] [id number] [place] [address]- 1609 Sep, [facility] [place] [facility] [address] [id number] [place] [address]- 2928 Sep, [facility] [place] [facility] [address] [id number] [place] [address]- 8685 Sep, [facility] [place] [facility] [address] [id number] [place] [address]- 3877 Aug, [facility] [place] [facility] [address] [id number] [place] [address]- 9664 Aug, [facility] [address] [id number] [place] [address]- 6970 Aug, [facility] [place] [facility] [address] [id number] [place] [address]- 7903 Aug, [facility] [place] [facility] [address] [id number] [place] [address]- 0611 May, [facility] [place] [facility] [address] [id number] [place] [address]- 7973 May, [facility] [place] [facility] [address] [id number] [place] [address]- 0601 May, [facility] [place] [facility] [address] [id number] [place] [address]- 2296 May, [facility] [place] [facility] [address] [facility] [id number] [place] [address]- 2331 Apr, [facility] [place] [facility] [address] [id number] [place] [address]- 2184 Apr, [facility] [place] [facility] [address] [id number] [place] [address]- 4383 Apr, [facility] [place] [facility] [address] [facility] [id number][place] [address]- 2048 Apr, [facility] [place] [facility] [address] [facility] [id number][place] [address]- 1153 Apr, [facility] [place] [facility] [address] [id number], [place] [address]- 6660 Apr, [facility] [place] [facility] [address] [id number] [place] [address]- 2581 Mar, [facility] [place] [facility] [address] [id number] [address] Mar, [facility] [place] [facility] [address] [facility] [id number], [place] [address] Jul, [facility] [place] [facility] [address] [id number] [address] May, [facility] [address] [facility] [id number], [place] [address] May, [facility] [address] [facility] [id number][place] [address] Apr, [facility] [address] [facility] [id number] [place] [address] Mar, IMMUNIZATIONS No Known Immunizations SOCIAL HISTORY Never Assessed REASON FOR VISIT requesting return call PLAN OF CARE VITAL SIGNS [...]
--- OUTSIDE RECORDS SUMMARY | 2018-04-22 16:20 | XMS REPORT | Continuity of Care Document ---
Author Author [facility] Address Unknown Phone Unavailable Allergies Active Description Code Type Severity Reaction Onset Reported/Identified Relationship to Patient Clinical Status Yes NO KNOWN DRUG ALLERGIES UNKNOWN NO KNOWN DRUG ALLERG Yes No Known Drug Allergies [id number] Drug Allergy Unknown N/A 04/05/2010 Yes Zoloft Drug Allergy N/A N/A 08/03/2010 Yes alprazolam [id number] Drug Allergy Unknown MAKES HIM VIOLE 11/27/2014 [...] JIM BRUCE MD 401.9 ESSENTIAL [facility]09[facility]2009 [facility] 04/09/2009 [facility] 401.9 ESSENTIAL HYPERTENSION 04/09/2009 JIM BRUCE MD 278.02 Overweight 04/09/2009 JIM BRUCE MD 401.9 ESSENTIAL HYPERTENSION 04/09/2009 JIM BRUCE MD 278.02 Overweight 04/09/2009 JIM BRUCE MD 401.9 ESSENTIAL HYPERTENSION 04/15/2009 LY ISIDRO DO 272.4 OTHER AND UNSPECIFIED HYPERLIPIDEMIA 04/15/2009 JANIS MD, JIM N 272.4 OTHER AND UNSPECIFIED HYPERLIPIDEMIA 04/15/2009 JIM BRUCE MD N 272.4 OTHER AND UNSPECIFIED HYPERLIPIDEMIA 04/15/2009 [facility], SHARDA R 272.4 OTHER AND UNSPECIFIED HYPERLIPIDEMIA 04/15/2009 JIM BRUCE MD N 272.4 OTHER AND UNSPECIFIED HYPERLIPIDEMIA 04/15/2009 JIM BRUCE MD N 272.4 OTHER AND UNSPECIFIED HYPERLIPIDEMIA 06/03/2009 LY ISIDRO DO K 466.0 BRONCHITIS, ACUTE 06/03/2009 JIM BRUCE MD N 466.0 BRONCHITIS, ACUTE 06/03/2009 JIM BRUCE MD N 466.0 BRONCHITIS, ACUTE 06/03/2009 [facility], SHARDA R 466.0 BRONCHITIS, ACUTE [...] MD N 401.1 BENIGN ESSENTIAL HYPERTENSION 07/29/2010 [facility], SHARDA R 300.4 DYSTHYMIC DISORDER 07/29/2010 [facility], SHARDA R 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 07/29/2010 [facility], SHARDA R 401.1 BENIGN ESSENTIAL [...] 311 DEPRESSIVE DISORDER NOT ELSEWHERE CLASSIFIED 03/29/2013 [facility], SHARDA R 311 DEPRESSIVE DISORDER NOT ELSEWHERE CLASSIFIED 03/29/2013 JIM BRUCE MD 311 DEPRESSIVE DISORDER NOT ELSEWHERE CLASSIFIED 03/29/2013 JIM BRUCE MD 311 DEPRESSIVE DISORDER NOT ELSEWHERE CLASSIFIED 05/07/2013 JIM BRUCE MD N 530.81 GERD 05/07/2013 JIM BRUCE MD 530.81 GERD 05/07/2013 [facility], SHARDA R 530.81 GERD 05/07/2013 JIM BRUCE MD 530.81 GERD 05/07/2013 JIM BRUCE MD 530.81 GERD 08/12/2013 PETRA KWAN MD Ot 401.9 HYPERTENSION NOS 08/12/2013 PETRA KWAN MD Ot 786.52 PAINFUL RESPIRATION 08/12/2013 PETRA KWAN MD Ot 786.59 CHEST PAIN NEC 08/13/2013 [facility], SHARDA R 309.28 AD ADJ [...] VIVI CHAPMAN Ot V62.84 SUICIDAL IDEATION 12/04/2014 SANDERS DOMINGOTT D Ot 574.10 CHOLELITH W CHOLECYS NEC 12/04/2014 MARILYN SALAZAR JONATHON D Ot 574.20 05/13/2015 SANDERS , JONATHON D Ot 574.20 05/13/2015 SANDERS DO, JONATHON D Ot V72.63 05/13/2015 SANDERS DO, JONATHON D Ot V74.8 05/27/2015 SANDERS DO JONATHON D Ot 574.20 05/27/2015 SANDERS DOMINGOTT D Ot V72.63 05/27/2015 SANDERS , JONATHON D Ot V74.8 02/11/2017 Brokob, Renae A 466.0 ACUTE BRONCHITIS 02/11/2017 Brokob, Renae A J20.9 ACUTE BRONCHITIS, UNSPECIFIED 03/16/2017 SANDERS , JONATHON D Ot 574.20 CHOLELITHIASIS NOS 03/16/2017 MURDOCK , JONATHON D Ot V72.63 PRE-PROCEDURAL LABORATORY EXAMINATION 03/16/2017 SANDERS DOMINGOTT D Ot V74.8 SCREEN-BACTERIAL DIS NEC 03/16/2017 SANDERS JONATHON D Ot 574.20 CHOLELITHIASIS NOS 03/16/2017 MURDOCK , JONATHON D Ot V72.63 PRE-PROCEDURAL LABORATORY EXAMINATION 03/16/2017 MURDOCK JONATHON D Ot V74.8 SCREEN-BACTERIAL DIS NEC 04/15/2018 EM HOFF APRN Ot F12.10 CANNABIS ABUSE, UNCOMPLICATED 04/15/2018 EM HOFF APRN Ot F32.9 MAJOR DEPRESSIVE DISORDER, SINGLE EPISOD 04/15/2018 EM HOFF APRN Ot F41.9 ANXIETY DISORDER, UNSPECIFIED 04/15/2018 EM HOFF APRN Ot I10 ESSENTIAL (PRIMARY) HYPERTENSION 04/15/2018 EM HOFF APRN Ot R00.2 PALPITATIONS 04/15/2018 EM HOFF APRN Ot R42 DIZZINESS AND GIDDINESS 04/15/2018 EM HOFF APRN Ot Z88.8 ALLERGY STATUS TO OTH DRUG/MEDS/BIOL SUB 04/19/2018 EM HOFF APRN Ot F12.10 CANNABIS ABUSE, UNCOMPLICATED 04/19/2018 EM HOFF APRN Ot F32.9 MAJOR DEPRESSIVE DISORDER, SINGLE EPISOD 04/19/2018 EM HOFF APRN Ot F41.9 ANXIETY DISORDER, UNSPECIFIED 04/19/2018 EM HOFF APRN Ot I10 ESSENTIAL (PRIMARY) HYPERTENSION 04/19/2018 EM HOFF APRN Ot R00.2 PALPITATIONS 04/19/2018 EM HOFF APRN Ot R42 DIZZINESS AND GIDDINESS 04/19/2018 EM HOFF APRN Ot Z88.8 ALLERGY STATUS TO OTH DRUG/MEDS/BIOL SUB Procedures Code [place] [address] ROUTINE VENIPUNCTURE 05/08/2013 24549 CMP 05/08/2013 04998 LIPID PANEL 05/08/2013 44525 PSYCH DIAGNOSTIC EVALUATION 08/14/2013 34686 ROUTINE VENIPUNCTURE 12/12/2013 84907 CMP 12/12/2013 95884 LIPID PANEL 12/12/2013 Results Test Result Range [...] Status Pt. Type Provider Facility Loc./Unit Complaint [id number] 12/12/2013 10:09:00 12/12/2013 23:59:59 CLS Outpatient JIM BRUCE MD [id number] 08/20/2013 14:13:00 08/20/2013 23:59:59 CLS Outpatient JIM BRUCE MD [id number] 08/13/2013 12:46:00 08/13/2013 23:59:59 CLS Outpatient PETER SHARDA RAND [id number] 05/08/2013 09:23:00 05/08/2013 23:59:59 CLS Outpatient JIM BRUCE MD [id number] 05/07/2013 10:12:00 05/07/2013 23:59:59 CLS Outpatient JIM BRUCE MD [id number] 03/29/2013 14:38:00 03/29/2013 23:59:59 CLS Outpatient LY ISIDRO DO [id number] 02/11/2017 22:22:00 02/11/2017 23:22:00 [id number] 02/11/2017 22:58:40 Document Registration [id number] 04/19/2018 10:13:00 04/19/2018 12:13:00 DIS Emergency TEODORA SANCHEZ MD [facility] ER DIZZINESS,CHEST PRESSURE [id number] 04/15/2018 10:24:00 04/15/2018 12:41:00 DIS Emergency EM HOFF APRN [facility] ER HEART RACING,DIZZY [id number] 03/16/2017 12:06:00 03/16/2017 13:59:00 DIS Emergency EM HOFF APRN [facility] ER VERTIGO WHILE DRIVING [id number] 12/04/2014 06:00:00 12/04/2014 15:00:00 DIS Outpatient JONATHON SANDERS DO [facility] SDC GALLSTONES [id number] 11/27/2014 10:29:00 11/27/2014 23:59:59 CLS Outpatient SANDERS JONATHON SALAZAR [facility] PREOP GALLSTONES [id number] 08/13/2014 18:37:00 08/13/2014 21:10:00 DIS Emergency VIVI CHAPMAN [facility] ER SUICIDAL IDEATION [id number] 07/20/2014 02:13:00 07/20/2014 04:14:00 DIS Emergency SRIDEVI RODRIGUEZ DO [facility] ER ABD/BACK PAIN [id number] 01/19/2014 20:11:00 01/19/2014 23:59:59 CLS Emergency [id number] 08/12/2013 18:54:00 08/12/2013 20:58:00 DIS Emergency PETRA KWAN MD [facility] ER CHEST WALL PAIN [id number] 03/22/2013 19:19:00 03/22/2013 21:43:00 DIS Emergency MICHAEL SRIDEVI SALAZAR K [facility] ER ABD PAIN [id number] 04/30/2018 14:30:00 PEN Preadmit EM HOFF APRN [facility] CARD PALPATIONS [id number] 08/08/2010 00:33:00 Document Registration [id number] 04/05/2010 09:38:00 Document Registration [id number] 01/01/2018 13:20:00 01/01/2018 23:59:59 CLS Out[facility] [id number] 01/01/2018 13:20:00 Document Registration [id number] 04/14/2017 09:20:00 Document Registration
--- NOTE | 2018-04-22 18:32 | ED General ---
General Chief Complaint: General Problems/Pain Stated Complaint: SEIZURE Nursing Triage Note: PT PRESENTS TO ER WITH COMPLAINT OF POSSIBLE SEIZURE. PTS SIGNIFICANT OTHER STATES PT WAS SHAKING AND NON RESPONSIVE FOR A MINUTE AND A HALF AND THEN TREMORED FOR 45 MINUTES. PT STATES HE HAS BEEN IN ER TWO TIMES THIS WEEK FOR PANIC ATTACK LIKE SYMPTOMS. Nursing Sepsis Screen: No Definite Risk Source of Information: Patient, Other (fiance) Exam Limitations: No Limitations History of Present Illness Date Seen by Provider: Apr 22, 2018 Time Seen by Provider: 17:53 Initial Comments Patient presents to ER by private conveyance with chief complaint that he has had these episodes of tunnel vision, staring off, being difficult to talk to since he was 11 years old. At that time was every few years but here in the last year so it's been every other month and last month he had 2 episodes and he 's been in the ER 3 times in the last week for these episodes. He's been worked up multiple times to leave has anxiety with panic attacks and been set up outpatient with cardiology to have a workup. He has a primary care doctor he's setting up these tests for him. He's used Xanax for panic disorder but says that that made him feel crazy and busted door off the hinges. He was then given Vistaril which he said he took 3 doses one time and it didn't do anything for him of the make him feel groggy which was not helpful. He has no known cardiac or epilepsy history. He thinks that the episodes might be seizures because he gets a tremor when they happen. He says they are becoming more frequent and this has him concerned. He also often times will experience symptoms of motion in the last week or 2 while sitting still. He has nasal congestion, ears popping and feeling underwater. He does not use a antihistamine or nasal steroid. He does use antihypertensives. He tried some Dramamine tonight for that sensation and it did not help. Allergies and Home Medications Allergies Coded Allergies: alprazolam (Unverified Allergy, Unknown, MAKES HIM VIOLENT, 11/27/14) Home Medications Hydroxyzine Pamoate 25 Mg Capsule, 25 MG PO Q6H PRN for ANXIETY Prescribed by: EM HOFF on 04/15/18 1135 Promethazine HCl 25 Mg Tablet, 25 MG PO Q8H PRN for NAUSEA/VOMITING Prescribed by: EM HOFF on 03/16/17 4873 Patient Home Medication List Home Medication List Reviewed: Yes Review of Systems Review of Systems Constitutional: No chills, No diaphoresis EENTM: No ear discharge, No ear pain Respiratory: No cough, No short of breath Cardiovascular: No chest pain, No edema Gastrointestinal: No abdominal pain, No constipation, No diarrhea, No nausea, No vomiting Genitourinary: No discharge, No dysuria Musculoskeletal: No back pain, No joint pain Skin: No pruritus, No rash Psychiatric/Neurological: Anxiety; Denies Headache, Denies Numbness, Denies Paresthesia Past [id number]-[id number]-[id number] Hx Patient Social History Alcohol Use: Denies Use Recreational Drug Use: Yes Drug of Choice: MARIJUANA Smoking Status: Current Everyday Smoker Type Used: Cigarettes Recent Foreign Travel: No Contact w/Someone Who Travel: No Recent Infectious Disease Expo: No Recent Hopitalizations: No Immunizations Up To Date Tetanus Booster (TDap): Less than 5yrs PED Vaccines UTD: Yes Seasonal Allergies Seasonal Allergies: No Past Medical History Surgeries: Yes ( RIGHT inguinal hernia) Abdominal, Gallbladder Respiratory: No Cardiac: Yes (HAS NEVER TAKEN BP MEDS) Hypertension Neurological: No Gastrointestinal: Yes Gall Bladder Disease Musculoskeletal: No Endocrine: No Cancer: No Psychosocial: Yes Anxiety, Suicide Attempts, Depression Integumentary: No Blood Disorders: No Adverse Reaction/Blood Tranf: No Family Medical History No Pertinent Family Hx Physical Exam Vital Signs Vital Signs - First Documented 04/22/18 16:33 Pulse 90 Resp 20 B/P (MAP) 155/99 (117) Pulse Ox 98 O2 Delivery Room Air Capillary Refill : Less Than 3 Seconds Height, Weight, BMI Height: 5'10.00" Weight: 255lbs. 0oz. 115.999324ud; 40.31 BMI Method:Stated General Appearance: No Apparent Distress, WD/WN Eyes: Right Eye Other (amblyopia); Bilateral Eye Normal Inspection, Bilateral Eye PERRL HEENT: PERRL/EOMI, Normal ENT Inspection, Pharynx Normal, Moist Mucous Membranes Neck: Full Range of Motion, Normal Inspection, Non Tender, Supple Respiratory: Chest Non Tender, Lungs Clear, Normal Breath Sounds, No Accessory Muscle Use, No Respiratory Distress Cardiovascular: Regular Rate, Rhythm, Normal Peripheral Pulses Gastrointestinal: Normal Bowel Sounds, No Organomegaly, Non Tender, Soft Extremity: Normal Capillary Refill, Normal Inspection, No Pedal Edema Neurologic/Psychiatric: Alert, Oriented x3, No Motor/Sensory Deficits, Normal 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, 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 Norm as Tested (with the exception of the right eye) Skin: Normal Color, Warm/Dry Progress/Results/Core Measures Suspected Sepsis Recent Fever Within 48 Hours: No Infection Criteria Present: None New/Unexplained Altered Menta: No Sepsis Screen: No Definite Risk SIRS Temperature: Pulse: 90 Respiratory Rate: 20 Blood Pressure 155 /99 Mean: 117 Results/Orders Vital Signs/I&O 04/22/18 16:33 Pulse 90 Resp 20 B/P (MAP) 155/99 (117) Pulse Ox 98 O2 Delivery Room Air Capillary Refill : Less Than 3 Seconds Blood Pressure Mean: 117 Progress Note : Time: 18:32 Progress Note Patient experienced one of the episodes in front of me while we were having her history he just stared off in space continue to answer questions appropriately and said he is having tunnel vision and feeling like the room was closing in on him. I explained to him that this is a panic attack but because of his previous experiences with Xanax I would not recommend using a benzodiazepine right now. He also states that the Vistaril did not help much. He may benefit from a mood stabilizer but he should follow-up with primary care to discuss this especially after he's had his appropriate outpatient cardiac workup. He's not having any chest pain today or other worrisome dangerous symptoms. I have encouraged him that if he wants to get to the bottom of this the stepwise approach of following up with cardiology then back to the primary care if they cannot find something to explain the symptoms to look at the next possibility would be a more reasonable use of his time. His episode that he had was not terribly consistent with anything that looked like a partial seizure or other seizure- like activity. It lasted only a few seconds and he was able to speak throughout it as well as there is no postictal phase. I have encouraged him that after the cardiac workup if there is nothing found he could talk to primary care doctor about a referral to neurology. Patient was seen 3 days ago and at that time it was for chest pain and he had a unremarkable workup. Since he already had follow-up with cardiology is encouraged to keep it. The GI cocktail did give him some relief of his symptoms so he was encouraged to get some antacids. Patient states he got them but read the side effects listed warnings included and decided not to take them. At that time he is encouraged to decrease his marijuana use and he says he did quit using marijuana 2 days ago. He also quit smoking and is back on 1 maybe 2 cigarettes a day. Patient presented 8 days ago with similar symptoms as today coldness in his legs , seeing spots, shaking on the inside. At that visit he was to follow up at the heart center the following day for the event monitor to be applied apparently that appointment was not kept. We had extensive discussion of the previous workups and present presentation with the patient and his fiance and we have come up with a following plan to follow up with primary care discuss may be starting a anti-anxiety/ antidepressant such as an SSRI to help with his anxiety and increased panic attacks. We also discussed considering psychiatry for referral to help with his panic attacks. We've also encouraged him to look into counseling and he said he would consider that strongly. 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 We have given him some cognitive behavioral techniques to help manage his symptoms. We have also given him return precautions. Finally we have encouraged him that he is okay to use the omeprazole as prescribed by Dr. Mazariegos if he's having symptoms of heartburn or indigestion. Departure Impression Primary Impression: Panic disorder Additional Impression: General ill feeling Disposition: 01 HOME, SELF-CARE Condition: Stable Departure-Patient Inst. Decision time for Depature: 19:01 Referrals: [facility] (PCP/Family) Primary Care Physician Patient Instructions: Panic Disorder (DC) Add. Discharge Instructions: Tomorrow morning please make plans to follow-up with your primary care provider and request to pursue any and/or all of counseling, psychiatric referral for medicine management or to start a antianxiety daily medicine. If you don't find a counselor that you like then try another one. Keep your scheduled appointments with the diesel instructor to get set up for the monitor. If after an extensive workup by the diesel instructor they do not find an answer for your problems then go back to the primary care doctor and request what is the next step to continue the workup. If you're having severe, intractable pain in the chest, inability to catch her breath despite some time for other significantly worrisome symptoms you may return to the ER for further evaluation. All discharge instructions reviewed with patient and/or family. Voiced understanding. Copy Copies To 1: LY ISIDRO TITUS J Apr 22, 2018 18:31
[2018-04-22 19:17] VITALS: BP 130/88
== END 2018-04-22 19:17 | disposition home or self-care (01) ==
LOC: EDUNIT# 16:13 → ER 16:14
DX: F41.0 Panic disorder [episodic paroxysmal anxiety] (principal); I10 Essential (primary) hypertension; F32.9 Major depressive disorder, single episode, unspecified; F12.10 Cannabis abuse, uncomplicated; F17.210 Nicotine dependence, cigarettes, uncomplicated; Z87.448 Personal history of other diseases of urinary system; Z91.5 Personal history of self-harm; Z88.8 Allergy status to other drugs, medicaments and biological substances; Z87.19 Personal history of other diseases of the digestive system
CPT/HCPCS: 99281

== ENCOUNTER → 2018-04-29 | Emergency (ER) | payer OTHER ==
--- OUTSIDE RECORDS SUMMARY | 2018-04-29 03:12 | XMS REPORT | Encounter Summary ---
Author Author [facility] Organization [facility] Address Unknown Phone Unavailable Care Team Providers Care Automobile Technician Name Role Phone No Pcp, Na PCP Unavailable Encounter Details Date Type Department Care Team Description 04/26/2018 Pharmacy Visit [facility] [address] [place] [address] Social History Tobacco Use Types Packs/Day Years Used Date Never Assessed Sex Assigned at Date Recorded Not on file as of this encounter Plan of Treatment Not on fileas of this encounter Visit Diagnoses Not on filein this encounter
--- OUTSIDE RECORDS SUMMARY | 2018-04-29 03:12 | XMS REPORT | Clinical Summary ---
Author Author [facility] Organization [facility] Address Unknown Phone Unavailable Care Team Providers Care Hadoop Administrator Name Role Phone No Pcp, Na PCP Unavailable Source Comments Some departments are not documenting in the electronic medical record. If you do not see the information that you expected, contact Release of Information in the Health Information Management department at [phone] for further assistance in locating additional records.[facility] Allergies No Known Allergies Current Medications Prescription Sig. Disp. Refills Start End Date Status Date LORazepam (ATIVAN) 0.5 mg Take one tablet by mouth 5 tablet 0 Active tablet every 8 hours as needed 18 for Nausea. Active Problems Not on file Encounters Date Type Specialty Care Team Description 04/26/2018 Emergency Emergency Medicine Anam Mcgee MD 04/26/2018 Pharmacy Visit from Last 3 Months Social History Tobacco Use Types Packs/Day Years Used Date Never Assessed Sex Assigned at Date Recorded Not on file Last Filed Vital Signs Vital Sign Reading Time Taken Blood Pressure 149/106 04/26/2018 8:53 PM [employer] Pulse 60 04/26/2018 7:00 PM [employer] Temperature 37 C (98.6 F) 04/26/2018 4:19 PM [employer] Respiratory Rate - - Oxygen Saturation 96% 04/26/2018 8:55 PM [employer] Inhaled Oxygen - - Concentration Weight 115.7 kg (255 lb) 04/26/2018 4:19 PM [employer] Height - - Body Mass Index - - Plan of Treatment Health Maintenance Due Date Last Done Comments PHYSICAL (COMPREHENSIVE) 1993 EXAM HIV SCREENING 2001 DTAP/TDAP VACCINES ( - 2004 Tdap) INFLUENZA VACCINE 01/10/2018 Procedures Procedure Name Priority Date/Time Associated Diagnosis Comments PHENCYCLIDINES-URINE STAT 04/26/2018 Results for this RANDOM 8:33 PM [employer] procedure are in the results section. OPIATES-URINE RANDOM STAT 04/26/2018 Results for this 8:33 PM [employer] procedure are in the results section. COCAINE-URINE RANDOM STAT 04/26/2018 Results for this 8:33 PM [employer] procedure are in the results section. CANNABINOIDS-URINE RANDOM STAT 04/26/2018 Results for this 8:33 PM [employer] procedure are in the results section. BENZODIAZEPINES-URINE STAT 04/26/2018 Results for this RANDOM 8:33 PM [employer] procedure are in the results section. BARBITURATES-URINE RANDOM STAT 04/26/2018 Results for this 8:33 PM [employer] procedure are in the results section. AMPHETAMINES-URINE RANDOM STAT 04/26/2018 Results for this 8:33 PM [employer] procedure are in the results section. URINALYSIS, MICROSCOPIC STAT 04/26/2018 Results for this 8:33 PM [employer] procedure are in the results section. URINALYSIS DIPSTICK STAT 04/26/2018 Results for this 8:33 PM [employer] procedure are in the results section. CHEST 2 VIEWS STAT 04/26/2018 Results for this 6:19 PM [employer] procedure are in the results section. ECG-SCAN 04/26/2018 Results for this 4:55 PM [employer] procedure are in the results section. ECG 12-LEAD STAT 04/26/2018 4:48 PM [employer] TROPONIN-I Add on 04/26/2018 Results for this 4:40 PM [employer] procedure are in the results section. TSH WITH FREE T4 REFLEX STAT 04/26/2018 Results for this 4:40 PM [employer] procedure are in the results section. COMPREHENSIVE METABOLIC STAT 04/26/2018 Results for this PANEL 4:40 PM [employer] procedure are in the results section. CBC AND DIFF STAT 04/26/2018 Results for this 4:40 PM [employer] procedure are in the results section. from Last 3 Months Results * URINALYSIS, MICROSCOPIC (04/26/2018 8:33 PM) WBCs,UA 0-2 0 - 2 /HPF [facility] RBCs,UA 0-2 0 - 3 /HPF [facility] MucousUA 1+ [facility] Squamous Epithelial Cells 0-2 0 - 5 [facility] Specimen Urine - Urine Performing Organization Address City/State/Zipcode Phone Number [facility] [address] [place] [address] * URINALYSIS DIPSTICK (04/26/2018 8:33 PM) Color,UA YELLOW [facility] Turbidity,UA CLEAR CLEAR-CLEAR [facility] Specific [place]-Urine 1.016 1.003 - 1.035 MAIN LAB pH,UA 6.0 5.0 - 8.0 [facility] Protein,UA NEG NEG-NEG [facility] Glucose,UA NEG NEG-NEG [facility] Ketones,UA NEG NEG-NEG [facility]IN [facility] Bilirubin,UA NEG NEG-NEG [facility] Blood,UA NEG NEG-NEG [facility] Urobilinogen,UA NORMAL NORM-NORMAL [facility] Nitrite,UA NEG NEG-NEG [facility] Leukocytes,UA NEG NEG-NEG [facility] Urine Ascorbic Acid, UA NEG NEG-NEG [facility] Specimen Urine - Urine Performing Organization Address [facility] Phone Number [facility] [address] [place] [address] * PHENCYCLIDINES-URINE RANDOM (04/26/2018 8:33 PM) Phencyclidine (PCP) NEG NEG-NEG MAIN [facility] Comment: RESULTS WERE OBTAINED BY IMMUNOASSAY AND ARE PRESUMPTIVE ONLY. POSITIVE INDICATES THE PRESENCE OF SUBSTANCE WITH CHARACTERISTICS SIMILAR TO DRUG-DRUG CLASS OR METABOLITE IN CONC. EQUAL TO OR EXCEEDING VALUES LISTED. PHENCYCLIDINE (PCP)25 NG/ML Specimen Urine - Urine Performing Organization Address [facility] Phone Number [facility] [address] [place] [address] * OPIATES-URINE RANDOM (04/26/2018 8:33 PM) Opiates-Urine NEG NEG-NEG [facility] Comment: RESULTS WERE OBTAINED BY IMMUNOASSAY AND ARE PRESUMPTIVE ONLY. POSITIVE INDICATES THE PRESENCE OF SUBSTANCE WITH CHARACTERISTICS SIMILAR TO DRUG-DRUG CLASS OR METABOLITE IN CONC. EQUAL TO OR EXCEEDING VALUES LISTED. OPIATES 2000 NG/ML Specimen Urine - Urine Performing Organization Address [facility] Phone Number [facility] [address] [place] [address] * COCAINE-URINE RANDOM (04/26/2018 8:33 PM) Cocaine-Urine NEG NEG-NEG MAIN LAB Comment: RESULTS WERE OBTAINED BY IMMUNOASSAY AND ARE PRESUMPTIVE ONLY. POSITIVE INDICATES THE PRESENCE OF SUBSTANCE WITH CHARACTERISTICS SIMILAR TO DRUG-DRUG CLASS OR METABOLITE IN CONC. EQUAL TO OR EXCEEDING VALUES LISTED. COCAINE 300 NG/ML Specimen Urine - Urine Performing Organization Address [facility] Phone Number [facility] [address] [place] [address] * CANNABINOIDS-URINE RANDOM (04/26/2018 8:33 PM) THC POS (A) NEG-NEG MAIN LAB Comment: RESULTS WERE OBTAINED BY IMMUNOASSAY AND ARE PRESUMPTIVE ONLY. POSITIVE INDICATES THE PRESENCE OF SUBSTANCE WITH CHARACTERISTICS SIMILAR TO DRUG-DRUG CLASS OR METABOLITE IN CONC. EQUAL TO OR EXCEEDING VALUES LISTED. CANNABINOIDS 50 NG/ML Specimen Urine - Urine Performing Organization Address [facility] Phone Number [facility] [address] [place] [address] * BENZODIAZEPINES-URINE RANDOM (04/26/2018 8:33 PM) Benzodiazepines NEG NEG-NEG MAIN LAB Comment: RESULTS WERE OBTAINED BY IMMUNOASSAY AND ARE PRESUMPTIVE ONLY. POSITIVE INDICATES THE PRESENCE OF SUBSTANCE WITH CHARACTERISTICS SIMILAR TO DRUG-DRUG CLASS OR METABOLITE IN CONC. EQUAL TO OR EXCEEDING VALUES LISTED. BENZODIAZEPINES 200 NG/ML Specimen Urine - Urine Performing Organization Address [facility] Phone Number [facility] [address] [place] [address] * BARBITURATES-URINE RANDOM (04/26/2018 8:33 PM) Barbiturates,Urine NEG NEG-NEG MAIN LAB Comment: RESULTS WERE OBTAINED BY IMMUNOASSAY AND ARE PRESUMPTIVE ONLY. POSITIVE INDICATES THE PRESENCE OF SUBSTANCE WITH CHARACTERISTICS SIMILAR TO DRUG-DRUG CLASS OR METABOLITE IN CONC. EQUAL TO OR EXCEEDING VALUES LISTED. BARBITURATES 200 NG/ML Specimen Urine - Urine Performing Organization Address [facility] Phone Number [facility] [address] [place] [address] * AMPHETAMINES-URINE RANDOM (04/26/2018 8:33 PM) Amphetamines NEG NEG-NEG MAIN LAB Comment: RESULTS WERE OBTAINED BY IMMUNOASSAY AND ARE PRESUMPTIVE ONLY. POSITIVE INDICATES THE PRESENCE OF SUBSTANCE WITH CHARACTERISTICS SIMILAR TO DRUG-DRUG CLASS OR METABOLITE IN CONC. EQUAL TO OR EXCEEDING VALUES LISTED. AMPHETAMINES 1000 NG/ML Specimen Urine - Urine Performing Organization Address [facility] Phone Number MA[facility] [address] [place] [address] * CHEST 2 VIEWS (04/26/2018 6:19 PM) Impressions Performed At Initial chest radiograph demonstrating no acute cardiopulmonary abnormalities. RAD RESULTS Finalized by Jose Bone M.D. on 04/27/2018 7:04 AM. Dictated by Jose Bone M.D. on 04/27/2018 7:03 AM. Narrative Performed At CHEST 2 VIEWS [facility] RAD RESULTS History: chest pain. Technique: PA and lateral views of the chest were obtained. Comparison: No prior examinations are available. Findings: The heart size is normal. There is no vascular congestion. No acute interstitial or alveolar opacities are identified. No parenchymal masses are detected. Hilar and mediastinal configurations are within normal limits. There is no pleural fluid. No pneumothorax is identified. Procedure Note Interface, Radiant Results - 04/27/2018 7:07 AM [employer] CHEST 2 VIEWS History: chest pain. Technique: PA and lateral views of the chest were obtained. Comparison: No prior examinations are available. Findings: The heart size is normal. There is no vascular congestion. No acute interstitial or alveolar opacities are identified. No parenchymal masses are detected. Hilar and mediastinal configurations are within normal limits. There is no pleural fluid. No pneumothorax is identified. IMPRESSION Initial chest radiograph demonstrating no acute cardiopulmonary abnormalities. Finalized by Jose Bone M.D. on 04/27/2018 7:04 AM. Dictated by Jose Bone M.D. on 04/27/2018 7:03 AM. Performing Organization Address [facility] Phone Number [facility] RESULTS * ECG-SCAN (04/26/2018 4:55 PM) Narrative Performed At Ordered by an unspecified provider. * TSH WITH FREE T4 REFLEX (04/26/2018 4:40 PM) TSH 0.910 0.35 - 5.00 MCU/ML [facility] Specimen Blood Performing Organization Address [facility] Phone Number [facility] [address] [place] [address] * TROPONIN-I (04/26/2018 4:40 PM) Troponin-I 0.01 0.0 - 0.05 NG/ML [facility] Performing Organization Address [facility] Phone Number [facility] [address] [place] [address] * CBC AND DIFF (04/26/2018 4:40 PM) White Blood Cells 9.4 4.5 - 11.0 K/UL [facility] RBC 4.66 4.4 - 5.5 M/UL [facility] Hemoglobin 15.3 13.5 - 16.5 GM/DL [facility] Hematocrit 44.7 40 - 50 % [facility] MCV 96.0 80 - 100 FL [facility] MCH 32.8 26 - 34 PG [facility] MCHC 34.1 32.0 - 36.0 G/DL [facility] RDW 12.3 11 - 15 % [facility] Platelet Count 263 150 - 400 K/UL [facility] MPV 9.0 7 - 11 FL [facility] Neutrophils 50 41 - 77 % [facility] Lymphocytes 40 24 - 44 % [facility] Monocytes 6 4 - 12 % [facility] Eosinophils 3 0 - 5 % [facility] Basophils 1 0 - 2 % [facility] Absolute Neutrophil Count 4.80 1.8 - 7.0 K/UL [facility] Absolute Lymph Count 3.70 1.0 - 4.8 K/UL [facility] Absolute Monocyte Count 0.50 0 - 0.80 K/UL [facility] Absolute Eosinophil Count 0.30 0 - 0.45 K/UL [facility] Absolute Basophil Count 0.10 0 - 0.20 K/UL [facility] Specimen Blood Performing Organization Address City/State/Zipcode Phone Number [facility] [address] [place] [address] * COMPREHENSIVE METABOLIC PANEL (04/26/2018 4:40 PM) Sodium 138 137 - 147 MMOL/L [facility] Potassium 3.7 3.5 - 5.1 MMOL/L [facility] Chloride 107 98 - 110 MMOL/L [facility] Glucose 92 70 - 100 MG/DL [facility] Blood Urea Nitrogen 13 7 - 25 MG/DL [facility] Creatinine 0.81 0.4 - 1.24 MG/DL [facility] Calcium 9.6 8.5 - 10.6 MG/DL [facility] Total Protein 7.6 6.0 - 8.0 G/DL [facility] Total Bilirubin 0.7 0.3 - 1.2 MG/DL [facility] Albumin 4.8 3.5 - 5.0 G/DL [facility] Alk Phosphatase 64 25 - 110 U/L [facility] AST (SGOT) 22 7 - 40 U/L [facility] CO2 22 21 - 30 MMOL/L [facility] ALT (SGPT) 24 7 - 56 U/L [facility] Anion Gap 9 3 - 12 [facility] eGFR Non >60 >60 mL/min [facility] Comment: The eGFR is not validated for use in drug dosing adjustments.Continue to use estimated creatinine clearance per dosing reference text.Please contact the Clinical Pharmacist for questions. eGFR >60 >60 mL/min [facility] Comment: The eGFR is not validated for use in drug dosing adjustments.Continue to use estimated creatinine clearance per dosing reference text.Please contact the Clinical Pharmacist for questions. Specimen Blood Performing Organization Address City/State/Zipcode Phone Number [facility] [address] [place] [address] from Last 3 Months
--- OUTSIDE RECORDS SUMMARY | 2018-04-29 03:13 | XMS REPORT | Encounter Summary ---
Author Author [facility] Organization [facility] Address Unknown Phone Unavailable Care Team Providers Care Phlebotomist Medical Lab Assistant Name Role Phone No Pcp, Na PCP Unavailable Reason for Visit * Reason Comments Seizure seizure like activity Encounter Details Date Type Department Care Team Description 04/26/2018 Emergency Emergency Dept. Anam Mcgee MD [address] [facility] [address] [place] [address] [place] [address] [place], [place] [id number] Social History Tobacco Use Types Packs/Day Years Used Date Never Assessed Sex Assigned at Date Recorded Not on file as of this encounter Last Filed Vital Signs Vital Sign Reading Time Taken Blood Pressure 149/106 04/26/2018 8:53 PM ORTHOTIC FITTER Pulse 60 04/26/2018 7:00 PM ORTHOTIC FITTER Temperature 37 C (98.6 F) 04/26/2018 4:19 PM ORTHOTIC FITTER Respiratory Rate - - Oxygen Saturation 96% 04/26/2018 8:55 PM ORTHOTIC FITTER Inhaled Oxygen - - Concentration Weight 115.7 kg (255 lb) 04/26/2018 4:19 PM ORTHOTIC FITTER Height - - Body Mass Index - - in this encounter Discharge Instructions The following attachments cannot be sent through Care Everywhere.* Anxiety Disorders, Understanding (KENYAN) * Chest Pain, Noncardiac (KENYAN) in this encounter Medications at Time of Discharge Medication Sig. Disp. Refills Start Date End Date LORazepam (ATIVAN) 0.5 mg Take one tablet by mouth 5 tablet 0 2017 tablet every 8 hours as needed for Nausea. as of this encounter Progress Notes * Vannesa Khan RN - 04/26/2018 6:40 PM ORTHOTIC FITTER called requesting that we see this patient for assessment. in this encounter Miscellaneous Notes * ED Notes - Javad Paulino RN - 04/26/2018 8:58 PM ORTHOTIC FITTER Discharge instructions discussed with pt and all questions fully answered. Pt had all belongings with him at time of discharge. Pt ambulated with steady gait out of ED. * ED Provider Notes - Libia Goode RN - 04/26/2018 8:41 PM ORTHOTIC FITTER Formatting of this note may be different from the original. Psychiatric Liaison Services Evaluation: Age: 32 y.o. Race/Ethnicity: Gender: Male Referred by: Accompanied by: Chief Complaint: Seizures and Panic Attack. History of Present Illness: Pt brought to the ED by his for seizures and panic attacks that started 3 weeks ago out of the blue. Pt report there were no precipitants. Pt report at home hanging out with friends and it just happened. Pt has not been diagnosed with seizure disorder. When it happens report hot flashes, light headedness, hard to breath, dizziness, unable to focus, and short term memory loss. Pt report it wakes him up from his sleep. Also report tremors. Pt report decreased appetite and sleep. Averages 4 hours an night. Denies SI/HI/AVH. Rates depression /10 and anxiety /10. Pt denies alcohol use. Smoke marijuana everyday before 3 weeks ago. Report not as much weed smoking anymore. Pt report visit ER 5 times in the last 7 days for these symptoms. Psych History: PTSD, ANXIETY, DEPRESSION. Has been inpatient for psych issues x 1 in 2010 tried to strangle self. Evaluated and sent home. Past Medical History: Hypertension Past Surgical History: Hernia Rt Groin, Gallbladder removed Substance Abuse History: Marijuana Social History Substance Use Topics Smoking status: Not on file Smokeless tobacco: Not on file Alcohol use Not on file History Drug use: Unknown Family History: No family history on file. Allergies: No Known Allergies Medications: ZOLOFT, LISINOPRIL, PROPRANOLOL, VISTARIL (Not in a hospital admission) Social History: Marital Status: Living Situation: Lives with Spouse Developmental History: NONE Mental Status Examination: Flow Of Thought: Circumstantial Intellect: Normal Sensorium: Orientation to Time, Orientation to Person, Orientation to Place, Oriented to Situation Memory: Normal Insight / Judgment: Fair Judgment, Fair Insight General Appearance: Worried, Sad Behavior: Calm, Cooperative Motor Activity: Normal Speech: Normal Mood / Affect: Depressed Mood, Flat Affect Content Of Thought: Normal, Denies SI, Denies Homicidal Thoughts, Denies Visual Hallucinations, Denies Audio Hallucinations Conduct Disturbance: Normal Eating/Sleep Disturbance: Decreased Appetite, Insomnia ( Report sleeps 4 hours since panic attsacks started.) Interview Behavior: Normal Med/TX Compliance: Meds-Usually (thinks zoloft is causing his panic attacks.) Disposition: Discharge home Reviewed: Dr. Anam Mcgee MD Attending Physician: Dr. Anam Goode RN * ED Notes - Eleni Bullock RN - 04/26/2018 7:17 PM ORTHOTIC FITTER Report from Ines TAYOLR- care assumed. * Case Mgmt DC Plan - Clementine Ruffin - 04/26/2018 7:03 PM ORTHOTIC FITTER Formatting of this note may be different from the original. Case Management Progress Note NAME:Jeff Nunez :1985 AGE: 32 y.o. ADMISSION DATE: 04/26/2018 DAYS ADMITTED: LOS: 0 days Todays Date: 04/26/2018 Plan Pt to discharge home when medically stable. Interventions SW was contacted by MARY to assist pt with follow up options. ? Support ? Info or Referral Information or Referral to Community Resources: Safety Net Resources and/or Follow-up Care, Lodging and/or Snf SW met with pt and his significant other at the bedside. Pt states he is hopeful to get follow up for his seizure disorder. SW and pt discussed the Community Health Worker program, pt is agreeable to a referral. Pt and his girlfriend state they are agreeable to travel for care as needed. ROBIN provided pt with a lodging list, as they plan to stay in [facility]. ROBIN also informed pt that SW can assist with a med voucher if needed. SW completed referral to CHW program. ? Discharge Planning ? Medication Needs ? Financial ? Legal ? Other Disposition ? Expected Discharge Date Expected Discharge Date: 04/26/18 ? Transportation Does the patient need discharge transport arranged?: No Does the patient use Medicaid Transportation?: No ? Next Level of Care (Acute Psych discharges only) ? Discharge Disposition Durable Medical Equipment No service has been selected for the patient. [facility] Destination No service has been selected for the patient. Home Care No service has been selected for the patient. Dialysis/Infusion No service has been selected for the patient. Clementine Ruffin LMSW Make Up Operator Helper Pager: [phone] * ED Notes - Javad Paulino RN - 04/26/2018 5:48 PM ORTHOTIC FITTER Records request forms given to rn unit manager to obtain pt information from [facility] and [facility]. * ED Notes - Bing Dasilva RN - 04/26/2018 4:50 PM ORTHOTIC FITTER Report to Ines TAYLOR meds given * ED Notes - Bing Dasilva RN - 04/26/2018 4:45 PM ORTHOTIC FITTER Mckenzie MARY at bedside, pt upset crying and upset . * ED Notes - Bing Dasilva RN - 04/26/2018 4:26 PM ORTHOTIC FITTER Clothing: Socks 2 shirt, sweat pants jacket Shoes: Short boots Jewelry: Wedding ring Identification/Drivers license: license [place]: 433 dollars verified with Ines TAYLOR. has the augustin and will be responsible for it , safe offered, declined Credit cards: One dedit card Electronics: Cell phone Dentures/Glasses/Hearing aids: none Assistive devices: none Belongings disposition: with patient at bedside * ED Notes - Bing Dasivla RN - 04/26/2018 4:00 PM ORTHOTIC FITTER Pt states 3 weeks ago he had a seizure like episode, pt describes this as he has a cold roman to both lower legs. His vision is affected, he has difficulty focusing, hearing decreased, then he shakes all over. Pt wakes up and immediately recognizers ,pt has been to the ER 5 times recently, states he saw a psychiatrist on Monday and had a panic attack while he was there , pt states when he takes Zoloft , he has a panic attack the patient reports last night he had an episode in his sleep, pt calm and cooperative, side rails up call light in reach in this encounter Plan of Treatment Not on fileas of this encounter Procedures Procedure Name Priority Date/Time Associated Diagnosis Comments URINALYSIS, MICROSCOPIC STAT 04/26/2018 Results for this 8:33 PM ORTHOTIC FITTER procedure are in the results section. URINALYSIS DIPSTICK STAT 04/26/2018 Results for this 8:33 PM ORTHOTIC FITTER procedure are in the results section. PHENCYCLIDINES-URINE STAT 04/26/2018 Results for this RANDOM 8:33 PM ORTHOTIC FITTER procedure are in the results section. OPIATES-URINE RANDOM STAT 04/26/2018 Results for this 8:33 PM ORTHOTIC FITTER procedure are in the results section. COCAINE-URINE RANDOM STAT 04/26/2018 Results for this 8:33 PM ORTHOTIC FITTER procedure are in the results section. CANNABINOIDS-URINE RANDOM STAT 04/26/2018 Results for this 8:33 PM ORTHOTIC FITTER procedure are in the results section. BENZODIAZEPINES-URINE STAT 04/26/2018 Results for this RANDOM 8:33 PM ORTHOTIC FITTER procedure are in the results section. BARBITURATES-URINE RANDOM STAT 04/26/2018 Results for this 8:33 PM ORTHOTIC FITTER procedure are in the results section. AMPHETAMINES-URINE RANDOM STAT 04/26/2018 Results for this 8:33 PM ORTHOTIC FITTER procedure are in the results section. CHEST 2 VIEWS STAT 04/26/2018 Results for this 6:19 PM ORTHOTIC FITTER procedure are in the results section. ECG-SCAN 04/26/2018 Results for this 4:55 PM ORTHOTIC FITTER procedure are in the results section. ECG 12-LEAD STAT 04/26/2018 4:48 PM ORTHOTIC FITTER TSH WITH FREE T4 REFLEX STAT 04/26/2018 Results for this 4:40 PM ORTHOTIC FITTER procedure are in the results section. TROPONIN-I Add on 04/26/2018 Results for this 4:40 PM ORTHOTIC FITTER procedure are in the results section. CBC AND DIFF STAT 04/26/2018 Results for this 4:40 PM ORTHOTIC FITTER procedure are in the results section. COMPREHENSIVE METABOLIC STAT 04/26/2018 Results for this PANEL 4:40 PM ORTHOTIC FITTER procedure are in the results section. in this encounter Results * PHENCYCLIDINES-URINE RANDOM (04/26/2018 8:33 PM) Phencyclidine (PCP) NEG NEG-NEG [facility] Comment: RESULTS WERE OBTAINED BY IMMUNOASSAY AND ARE PRESUMPTIVE ONLY. POSITIVE INDICATES THE PRESENCE OF SUBSTANCE WITH CHARACTERISTICS SIMILAR TO DRUG-DRUG CLASS OR METABOLITE IN CONC. EQUAL TO OR EXCEEDING VALUES LISTED. PHENCYCLIDINE (PCP)25 NG/ML Specimen Urine - Urine Performing Organization Address City/State/Zipcode Phone Number [facility] [address] [place] [address] * OPIATES-URINE RANDOM (04/26/2018 8:33 PM) Opiates-Urine NEG NEG-NEG [facility] Comment: RESULTS WERE OBTAINED BY IMMUNOASSAY AND ARE PRESUMPTIVE ONLY. POSITIVE INDICATES THE PRESENCE OF SUBSTANCE WITH CHARACTERISTICS SIMILAR TO DRUG-DRUG CLASS OR METABOLITE IN CONC. EQUAL TO OR EXCEEDING VALUES LISTED. OPIATES 2000 NG/ML Specimen Urine - Urine Performing Organization Address [facility] Phone Number MAIN LAB [address] [place] [address] * COCAINE-URINE RANDOM (04/26/2018 8:33 PM) Cocaine-Urine NEG NEG-NEG [facility] Comment: RESULTS WERE OBTAINED BY IMMUNOASSAY AND ARE PRESUMPTIVE ONLY. POSITIVE INDICATES THE PRESENCE OF SUBSTANCE WITH CHARACTERISTICS SIMILAR TO DRUG-DRUG CLASS OR METABOLITE IN CONC. EQUAL TO OR EXCEEDING VALUES LISTED. COCAINE 300 NG/ML Specimen Urine - Urine Performing Organization Address [facility] Phone Number MAIN LAB [address] [place] [address] * CANNABINOIDS-URINE RANDOM (04/26/2018 8:33 PM) THC POS (A) NEG-NEG [facility] Comment: RESULTS WERE OBTAINED BY IMMUNOASSAY AND ARE PRESUMPTIVE ONLY. POSITIVE INDICATES THE PRESENCE OF SUBSTANCE WITH CHARACTERISTICS SIMILAR TO DRUG-DRUG CLASS OR METABOLITE IN CONC. EQUAL TO OR EXCEEDING VALUES LISTED. CANNABINOIDS 50 NG/ML Specimen Urine - Urine Performing Organization [facility] Phone Number MAIN LAB [address] [place] [address] * BENZODIAZEPINES-URINE RANDOM (04/26/2018 8:33 PM) Benzodiazepines NEG NEG-NEG [facility] Comment: RESULTS WERE OBTAINED BY IMMUNOASSAY AND ARE PRESUMPTIVE ONLY. POSITIVE INDICATES THE PRESENCE OF SUBSTANCE WITH CHARACTERISTICS SIMILAR TO DRUG-DRUG CLASS OR METABOLITE IN CONC. EQUAL TO OR EXCEEDING VALUES LISTED. BENZODIAZEPINES 200 NG/ML Specimen Urine - Urine Performing Organization Address [facility] Phone Number MAIN LAB [address] [place] [address] * BARBITURATES-URINE RANDOM (04/26/2018 8:33 PM) Barbiturates,Urine NEG NEG-NEG [facility] Comment: RESULTS WERE OBTAINED BY IMMUNOASSAY AND ARE PRESUMPTIVE ONLY. POSITIVE INDICATES THE PRESENCE OF SUBSTANCE WITH CHARACTERISTICS SIMILAR TO DRUG-DRUG CLASS OR METABOLITE IN CONC. EQUAL TO OR EXCEEDING VALUES LISTED. BARBITURATES 200 NG/ML Specimen Urine - Urine Performing Organization Address [facility] Phone Number MAIN LAB [address] [place] [address] * AMPHETAMINES-URINE RANDOM (04/26/2018 8:33 PM) Amphetamines NEG NEG-NEG [facility] Comment: RESULTS WERE OBTAINED BY IMMUNOASSAY AND ARE PRESUMPTIVE ONLY. POSITIVE INDICATES THE PRESENCE OF SUBSTANCE WITH CHARACTERISTICS SIMILAR TO DRUG-DRUG CLASS OR METABOLITE IN CONC. EQUAL TO OR EXCEEDING VALUES LISTED. AMPHETAMINES 1000 NG/ML Specimen Urine - Urine Performing Organization Address [facility] Phone Number [facility] [address] [place] [address] * URINALYSIS, MICROSCOPIC (04/26/2018 8:33 PM) WBCs,UA 0-2 0 - 2 /HPF [facility] RBCs,UA 0-2 0 - 3 /HPF [facility] MucousUA 1+ [facility] Squamous Epithelial Cells 0-2 0 - 5 [facility] Specimen Urine - Urine Performing Organization Address [facility] Phone Number [facility] [address] [place] [address] * URINALYSIS DIPSTICK (04/26/2018 8:33 PM) Color,UA YELLOW [facility] Turbidity,UA CLEAR CLEAR-CLEAR [facility] Specific [place]-Urine 1.016 1.003 - 1.035 [facility] pH,UA 6.0 5.0 - 8.0 [facility] Protein,UA NEG NEG-NEG [facility] Glucose,UA NEG NEG-NEG [facility] Ketones,UA NEG NEG-NEG [facility] Bilirubin,UA NEG NEG-NEG [facility] Blood,UA NEG NEG-NEG [facility] Urobilinogen,UA NORMAL NORM-NORMAL [facility] Nitrite,UA NEG NEG-NEG [facility] Leukocytes,UA NEG NEG-NEG [facility] Urine Ascorbic Acid, UA NEG NEG-NEG [facility] Specimen Urine - Urine Performing Organization Address [facility] Phone Number [facility] [address] [place] [address] * CHEST 2 VIEWS (04/26/2018 6:19 PM) Impressions Performed At Initial chest radiograph demonstrating no acute cardiopulmonary abnormalities. [facility] RESULTS Finalized by Jose Bone M.D. [...] Interface, Radiant Results - 04/27/2018 7:07 AM ORTHOTIC FITTER CHEST 2 VIEWS History: chest pain. Technique: [...] on 04/27/2018 7:03 AM. Performing Organization Address [facility] Phone Number RAD RESULTS * ECG-SCAN (04/26/2018 4:55 PM) Narrative Performed At Ordered by an unspecified provider. * TROPONIN-I (04/26/2018 4:40 PM) Troponin-I 0.01 0.0 - 0.05 NG/ML [facility] Performing Organization [facility] Phone Number [facility] [address] [place] [address] * TSH WITH FREE T4 REFLEX (04/26/2018 4:40 PM) TSH 0.910 0.35 - 5.00 MCU/ML [facility] Specimen Blood Performing Organization Address [facility] Phone Number MAIN LAB [address] [place] [address] * COMPREHENSIVE METABOLIC PANEL (04/26/2018 4:40 PM) [...] Address City/State/Zipcode Phone Number [facility] [address] [place] [address] * CBC AND DIFF (04/26/2018 4:40 PM) [...] Organization Address City/State/Zipcode Phone Number MAIN LAB [address] [place] [address] in this encounter Visit Diagnoses Diagnosis Seizure-like activity (HCC) - Primary Other convulsions Anxiety Anxiety state, unspecified Chest pain, unspecified type Administered Medications Medication Order MAR Action Action Date Dose Rate Site LORazepam (ATIVAN) injection 1 mg Given 04/26/2018 1 mg 1 mg, Intravenous, ONCE, 1 dose, Barbara 16:41 ORTHOTIC FITTER 04/26/18 at 1645, PROTECT FROM LIGHT sodium chloride 0.9 % infusion Given - New 04/26/2018 1,000 mL 1000 mL/hr 1,000 mL, 1,000 mL, Intravenous, at Bag 17:13 ORTHOTIC FITTER 1,000 mL/hr, ONCE, 1 dose, Barbara 04/26/18 at 1700 in this encounter
--- OUTSIDE RECORDS SUMMARY | 2018-04-29 03:13 | XMS REPORT ---
Author Author BENITEZ GE [facility] Address [address] [place] [address] Care Team Providers Care Survey Technologist Name Role Phone BENITEZ GE Unavailable PROBLEMS Type Condition ICD9-CM Code [id number] Code Onset Dates Condition Status SNOMED Code Problem Panic disorder F41.0 Active 189825368 Problem Essential hypertension I10 Active 73804778 Problem Depressive disorder, not elsewhere classified F32.9 Active 85468552 Problem Esophageal reflux K21.9 Active 244891633 Problem Mixed emotional features as adjustment reaction F43.23 Active [id number] ALLERGIES No Information ENCOUNTERS Encounter Location Date Diagnosis [facility] [address] [address] Apr, [facility] [address] [address] Apr, [facility] [address] [address] Apr, [facility] [address] [address] Apr, Panic disorder F41.0 [facility] [address] [address] Apr, [facility] [address] [address] Apr, Panic disorder F41.0 [facility] [address] [address] Apr, [facility] [address] [address] Apr, [facility] [address] [place] [address] Apr, [facility] [id number] [place] [address] Mar, [facility] [id number] [place] [address] Mar, Essential hypertension I10 [facility] [address] [address] Feb, [facility] [address] [address] Jan, Essential hypertension I10 and Dizziness R42 [place] [address] [address] Dec, [facility] [address] [address] Dec, Dizziness R42 and Elevated blood pressure reading R03.0 [facility] [address] [address] Apr, [facility] [address] [address] Apr, Family history of cardiovascular disease Z82.49 [facility] [id number] [place] [address] Mar, Syncope, unspecified syncope type R55 and Family history of cardiovascular disease Z82.49 [facility] [id number] [place] [id number] Dec, Dental caries K02.9 [facility] [id number] [place] [address] Dec, Dental examination Z01.20 [facility] [id number] [place] [id number] Sep, Dental examination Z01.20 [facility] [id number] [place] [address] Jun, Right hand pain M79.641 [facility] [address] [id number] [place] [address] Nov, [facility] [address] [id number] [place] [address] Nov, [facility] [address] [id number] [place] [address] Nov, [facility] [address] [id number] [place] [address] October, Gallstones 574.20 [facility] [address] [id number] [place] [address] Sep, [facility] [address] [id number] [place] [address] Sep, [facility] [address] [id number] [place] [address] Jan, [facility] [place] [facility] [address] [id number] [place] [address] Jan, [facility] [place] [facility] [address] [id number] [place] [address] Dec, [facility] [place] [facility] [address] [id number] [place] [address] Dec, [facility] [place] [facility] [address] [id number] [place] [address] Dec, [facility] [place] [facility] [address] [id number] [place] [address] Dec, [facility] [place] [facility] [address] [id number] [place] [address] Nov, [facility] [place] [facility] [address] [id number] [place] [address] Nov, [facility] [place] [facility] [address] [id number] [place] [address] October, [facility] [place] [facility] [address] [id number] [place] [address] October, [facility] [place] [facility] [address] [id number] [place] [address] Sep, [facility] [place] [facility] [address] [id number] [place] [address] Sep, [facility] [place] [facility] [address] [id number] [place] [address] Sep, [facility] [place] [facility] [address] [id number] [place] [address] Sep, [facility] [place] [facility] [address] [id number] [place] [address] Aug, [facility] [place] [facility] [address] [id number] [place] [address] Aug, [facility] [place] [facility] [address] [id number] [place] [address] Aug, [facility] [place] [facility] [address] [id number] [place] [address] Aug, [facility] [place] [facility] [address] [id number] [place] [address] May, [facility] [place] [facility] [address] [id number] [place] [address] May, [facility] [place] [facility] [address] [id number] [place] [address] May, [facility] [place] [facility] [address] [id number] [place] [address] May, [facility] [place] [facility] [address] [id number] [place] [address] Apr, [facility] [place] [facility] [address] [id number] [place] [address] Apr, [facility] [place] [facility] [address] [id number] [place] [address] Apr, [facility] [address] [place] [address] Apr, [facility] [address] [place] [address] Apr, [facility] [address] [place] [address] Apr, [facility] [id number] [place] [address] Mar, [facility] [id number] [place] [address] Mar, [facility] [id number] [place] [address] Jul, [facility] [id number] [place] [address] May, [facility] [address] [place] [address] May, [facility] [address] [place] [address] Apr, [facility] [address] [place] [address] Mar, IMMUNIZATIONS No Known Immunizations SOCIAL HISTORY Never Assessed REASON FOR VISIT PLAN OF CARE VITAL SIGNS MEDICATIONS Unknown [...]
--- OUTSIDE RECORDS SUMMARY | 2018-04-29 03:13 | XMS REPORT ---
Author Author BENITEZ GE [facility] Address [address] [place] [address] Care Team Providers [facility] Worker Name Role Phone BENITEZ GE Unavailable PROBLEMS Type Condition ICD9-CM Code [id number] Code Onset Dates Condition Status SNOMED Code Problem Panic disorder F41.0 Active 724829492 Problem Essential hypertension I10 Active 08723239 Problem Depressive disorder, not elsewhere classified F32.9 Active 70266270 Problem Esophageal reflux K21.9 Active 008729184 Problem Mixed emotional features as adjustment reaction F43.23 Active 10524626 ALLERGIES No Information ENCOUNTERS Encounter Location Date Diagnosis [facility] [address] [address] Apr, [facility] [address] [address]- 9065 Apr, [facility] [address] [address]- 7647 Apr, [facility] [address] [address]- 7766 Apr, Panic disorder F41.0 [facility] [address] [address]- [address] Apr, [facility] [address] [address]- 1767 Apr, Panic disorder F41.0 [facility] [address] [address]- [address] Apr, [facility] [address] [address]- 69[address] Apr, [facility] [address] [place] [address] 8561 Apr, [facility] [id number] [place] [address]40- 5406 Mar, [facility] [id number] [place] [address] 75928- 5623 Mar, Essential hypertension I10 [facility] [address] [address]- [address] Feb, [facility] [address] [address]- 4294 Jan, Essential hypertension I10 and Dizziness R42 [place] [address] [address]- [address]60 Dec, [facility] [address] [address]- 4352 Dec, Dizziness R42 and Elevated blood pressure reading R03.0 [facility] [address] [address]- 4276 Apr, [facility] [address] [address]- 9368 Apr, Family history of cardiovascular disease Z82.49 [facility] [id number] [place] [address]14- 1082 Mar, Syncope, unspecified syncope type R55 and Family history of cardiovascular disease Z82.49 [facility] [id number] [place] [id number] Dec, Dental caries K02.9 [facility] [id number] [place] [address] 75897- 2682 Dec, Dental examination Z01.20 [facility] [id number] [place] [address] [id number] Sep, Dental examination Z01.20 [facility] [id number] [place] [address] 12955- 3915 Jun, Right hand pain M79.641 [facility] [address] [id number] [place] [address] Nov, [facility] [address] [id number] [place] [address]- 1140 Nov, [facility] [address] [id number] [place] [address]- 6642 Nov, [facility] [address] [id number] [place] [address]- 8500 October, Gallstones 574.20 [facility] [address] [id number] [place] [address]- 4745 Sep, [facility] [address] [id number] [place] [address]- 6759 Sep, [facility] [address] [id number] [place] [address]- 9220 Jan, [facility] [place] [facility] [address] [id number] [place] [address]- 7086 Jan, [facility] [place] [facility] [address] [id number] [place] [address]- 8993 Dec, [facility] [place] [facility] [address] [id number] [place] [address]- 5192 Dec, [facility] [place] [facility] [address] [id number] [place] [address]- 0802 Dec, [facility] [place] [facility] [address] [id number] [place] [address]- 6534 Dec, [facility] [place] [facility] [address] [id number] [place] [address]- 1556 Nov, [facility] [place] [facility] [address] [id number] [place] [address]- 6685 Nov, [facility] [place] [facility] [address] [id number] [place] [address]- 0964 October, [facility] [place] [facility] [address] [id number] [place] [address]- 2791 October, [facility] [place] [facility] [address] [id number] [place] [address]- 4350 Sep, [facility] [place] [facility] [address] [id number] [place] [address]- 8186 Sep, [facility] [place] [facility] [address] [id number] [place] [address]- 2378 Sep, [facility] [place] [facility] [address] [id number] [place] [address]- 8490 Sep, [facility] [place] [facility] [address] [id number] [place] [address]- 2729 Aug, [facility] [place] [facility] [address] [id number] [place] [address]- 9848 Aug, [facility] [place] [facility] [address] [id number] [place] [address]- 8468 Aug, [facility] [place] [facility] [address] [id number] [place] [address]- 7216 Aug, [facility] [place] [facility] [address] [id number] [place] [address]- 5559 May, [facility] [place] [facility] [address] [id number] [place] [address]- 0495 May, [facility] [place] [facility] [address] [id number] [place] [address]- 0379 May, [facility] [place] [facility] [address] [id number] [place] [address]- 5976 May, [facility] [place] [facility] [address] [id number] [place] [address]- 2541 Apr, [facility] [place] [facility] [address] [id number] [place] [address]- 9906 Apr, [facility] [place] [facility] [address] [id number] [place] [address] Apr, [facility] [address] [id number] [address] 8472 Apr, [facility] [address] [address]- 2900 Apr, [facility] [address] [address] Apr, [facility] [address] [id number] [address]99 Mar, [facility] [address] [address]- 6592 Mar, [facility] [id number] [place] [address] 84640- 9041 Jul, [facility] [id number] [place] [address] 648671- 4775 May, [facility] [address], [place] [address]- 2732 May, [facility] [address], [place] [address]- 5823 Apr, [facility] [address], [place] [address]- 7377 Mar, IMMUNIZATIONS No Known Immunizations SOCIAL HISTORY [...]
--- OUTSIDE RECORDS SUMMARY | 2018-04-29 03:13 | XMS REPORT ---
Author Author BENITEZ GE [facility] Address [address] [place] [address] Care Team Providers Care Rug Cleaner Name Role Phone BENITEZ GE Unavailable PROBLEMS Type Condition ICD9-CM Code UHV49-CF Code Onset Dates Condition Status SNOMED Code Problem Mixed emotional features as adjustment reaction F43.23 Active 63803118 Problem Generalized anxiety disorder F41.1 Active 76483217 Problem PTSD (post-traumatic stress disorder) F43.10 Active 32393297 Problem Esophageal reflux K21.9 Active 268342635 Problem Depressive disorder, not elsewhere classified F32.9 Active 68270454 Problem Panic disorder F41.0 Active 224512224 Problem Essential hypertension I10 Active 03243514 ALLERGIES No Information ENCOUNTERS Encounter Location Date Diagnosis [facility] [id number] [place] [address]118- 5297 May, [facility] [address] [address]- 7807 Apr, [facility] [id number] [place] [address] 53849- 0130 Apr, [facility] [id number] [place] [address] 11780- 0611 15 Apr, 2018 [facility] [id number] [place] [address] 83744- 7765 14 Apr, 2018 [facility] [address] [address]- 1950 12 Apr, 2018 Panic disorder F41.0 [facility] [id number] [place] [address] 43281- 5582 12 Apr, 2018 Generalized anxiety disorder F41.1 ; Panic disorder F41.0 and PTSD (post-traumatic stress disorder) F43.10 [facility] [id number] [place] [address] 62467- 4145 Apr, Panic disorder F41.0 [facility] [id number] [place] [address] 00338- 5568 Apr, [facility] [id number] [place] [address] 29263- 5672 Apr, [facility] [id number] [place] [address] 30083- 2288 Apr, [facility] [id number] [place] [address] 21724- 4150 Mar, [facility] [id number] [place] [address] 80670- 3230 Mar, Essential hypertension I10 [facility] [id number] [place] [address] 13875- 1466 Feb, [facility] [id number] [place] [address] 38535- 1919 Jan, Essential hypertension I10 and Dizziness R42 [facility] [id number] [place] [address] 03071- 7657 Dec, [facility] [id number] [place] [address] 83358- 3967 Dec, Dizziness R42 and Elevated blood pressure reading R03.0 [facility] [id number] [place] [address] 88819- 8159 Apr, [facility] [id number] [place] [address] 31354- 4895 Apr, Family history of cardiovascular disease Z82.49 [facility] [id number] [place] [address] 03432- 5352 Mar, Syncope, unspecified syncope type R55 and Family history of cardiovascular disease Z82.49 [facility] [id number] [place] [address] [id number] Dec, Dental caries K02.9 [facility] [address] [id number] [address] Dec, Dental examination Z01.20 [facility] [address] [id number] [id number] Sep, Dental examination Z01.20 [facility] [address] [id number], [place] [address]- 7635 Jun, Right hand pain M79.641 [facility] [address] [id number] 2078 Nov, [facility] [address] [id number]- 7006 Nov, [facility] [address] [facility] [id number] 3367 Nov, [facility] [address] [facility] [id number], [place] [address]- 3920 October, Gallstones 574.20 [facility] [address] [id number], [place] [address]- 6108 Sep, [facility] [address] [id number], [place] [address]- 9095 Sep, [facility] [address] [id number], [place] [address]- 4795 Jan, [facility] [address] [id number], [place] [address]- 6976 Jan, [facility] [address] [id number], [place] [address]- 8616 Dec, [facility] [address] [id number][place] 7926 Dec, [facility] [address] [id number] 8273 Dec, [facility] [address] [id number] [place] [address]- 8456 Dec, [facility] [place] [facility] [address] [id number] [place] [address]- 8471 Nov, [facility] [place] [facility] [address] [id number] [place] [address]- 8686 Nov, [facility] [place] [facility] [address] [id number] [place] [address]- 7326 October, [facility] [place] [facility] [address] [id number] [place] [address]- 7339 October, [facility] [place] [facility] [address] [id number] [place] [address]- 8741 Sep, [facility] [place] [facility] [address] [id number] [place] [address]- 4662 Sep, [facility] [place] [facility] [address] [id number] [place] [address]- 7433 Sep, [facility] [place] [facility] [address] [id number] [place] [address]- 6304 Sep, [facility] [place] [facility] [address] [id number] [place] [address]- 3174 Aug, [facility] [place] [facility] [address] [id number] [place] [address]- 1849 Aug, [facility] [place] [facility] [address] [id number] [place] [address]- 4426 Aug, [facility] [place] [facility] [address] [id number] [place] [address]- 2546 Aug, [facility] [place] [facility] [address] [id number] [place] [address]- 3346 May, [facility] [place] [facility] [address] [id number] [place] [address]- 7076 May, [facility] [place] [facility] [address] [id number] [place] [address]- 9296 May, [facility] [address], [place] [address]- 0394 May, [facility] [address], [place] [address]- 3370 Apr, [facility] [address], [place] [address]- 6609 Apr, [facility] [address] [place] [address] 12387- 8023 Apr, [facility] [address] [facility] [id number], [place] [address]- 8536 Apr, [facility] [address] [place] [address] 39317- 0844 Apr, [facility] [address], [place] [address]- 8087 Apr, [facility] [address], [place] [address]- 4604 Mar, [facility] [address], [place] [address]- 3939 Mar, [facility] [address], [place] [address]- 2795 Jul, [facility] [address], [place] [address]- 1682 May, [facility] [address], [place] [address]- 7274 May, [facility] [address], [place] [address]- 3436 Apr, [facility] [address], [place] [address]- 7547 Mar, IMMUNIZATIONS No Known Immunizations SOCIAL HISTORY Never Assessed REASON FOR VISIT return call to pt PLAN OF CARE VITAL SIGNS MEDICATIONS Unknown [...]
--- OUTSIDE RECORDS SUMMARY | 2018-04-29 03:16 | XMS REPORT | Continuity of Care Document ---
Author Author [facility] Address Unknown Phone Unavailable Allergies Active Description Code Type Severity Reaction Onset Reported/Identified Relationship to Patient Clinical Status Yes NO KNOWN DRUG ALLERGIES UNKNOWN NO KNOWN DRUG ALLERG Yes No Known Drug Allergies [id number] Drug Allergy Unknown N/A 04/05/2010 Yes Zoloft Drug Allergy N/A N/A 08/03/2010 Yes alprazolam [id number] Drug Allergy Unknown MAKES HIM VIOLE 11/27/2014 Medications Medication Packaging Start Date Stop Date Route Dosage Sig IPRATROPIUM/ALBUTEROL INH SOLN (DUO-NEB INH SOLN) MLS 02/11/2017 02/11/2017 ONCE&2258 AZITHROMYCIN TAB 500 MG (ZITHROMAX) MG 02/11/2017 02/11/2017 ONCE&2309 HYDROXYZINE TAB 25 MG (ATARAX) MG 04/24/2018 04/24/2018 ONCE&2312 ALPRAZOLAM TAB 0.5 MG (XANAX) MG 04/26/2018 PRN ONCE LORAZEPAM TAB 0.5 MG (ATIVAN) MG 04/26/2018 ONCE&0506 Problems Date Dx Coded Attending Type Code Diagnosis Diagnosed By 04/09/2009 LY ISIDRO DO 278.02 Overweight 04/09/2009 LY ISIDRO DO 401.9 ESSENTIAL HYPERTENSION 04/09/2009 JIM BRUCE MD 278.02 Overweight 04/09/2009 JIM BRUCE MD 401.9 ESSENTIAL HYPERTENSION 04/09/2009 JIM BRUCE MD 278.02 Overweight 04/09/2009 JIM BRUCE MD 401.9 ESSENTIAL HYPERTENSION 04/09/2009 [facility] 04/09[facility]2009 [facility] 401.9 ESSENTIAL HYPERTENSION 04/09/2009 JIM BRUCE MD 278.02 Overweight 04/09/2009 JANIS MD, JIM N 401.9 ESSENTIAL HYPERTENSION 04/09/2009 JIM BRUCE MD N 278.02 Overweight 04/09/2009 JIM BRUCE MD N 401.9 ESSENTIAL HYPERTENSION 04/15/2009 LY ISIDRO DO 272.4 OTHER AND UNSPECIFIED HYPERLIPIDEMIA 04/15/2009 JIM BRUCE MD N 272.4 OTHER AND UNSPECIFIED HYPERLIPIDEMIA 04/15/2009 JIM BRUCE MD N 272.4 OTHER AND UNSPECIFIED HYPERLIPIDEMIA 04/15/2009 [facility] R 272.4 OTHER AND UNSPECIFIED HYPERLIPIDEMIA 04/15/2009 JIM BRUCE MD N 272.4 OTHER AND UNSPECIFIED HYPERLIPIDEMIA 04/15/2009 JIM BRUCE MD N 272.4 OTHER AND UNSPECIFIED HYPERLIPIDEMIA 06/03/2009 LY ISIDRO DO 466.0 BRONCHITIS, ACUTE 06/03/2009 JIM BRUCE MD N 466.0 BRONCHITIS, ACUTE 06/03/2009 JIM BRUCE MD N 466.0 BRONCHITIS, ACUTE 06/03/2009 [facility] R 466.0 BRONCHITIS, ACUTE 06/03/2009 JIM BRUCE MD N 466.0 BRONCHITIS, ACUTE 06/03/2009 JIM BRUCE MD N 466.0 BRONCHITIS, ACUTE 04/05/2010 Ot 575.10 04/05/2010 Ot 789.06 07/29/2010 LY ISIDRO DO 300.4 DYSTHYMIC DISORDER 07/29/2010 LY ISIDRO DO K 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 07/29/2010 LY ISIDRO DO 401.1 BENIGN ESSENTIAL HYPERTENSION 07/29/2010 JIM BRUCE [...] MD N 401.1 BENIGN ESSENTIAL HYPERTENSION 07/29/2010 [facility] R 300.4 DYSTHYMIC DISORDER 07/29/2010 [facility] R 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 07/29/2010 [facility] R 401.1 BENIGN ESSENTIAL HYPERTENSION [...] BRUCE MD N 401.1 BENIGN ESSENTIAL HYPERTENSION 08/08/2010 Ot 523.40 08/08/2010 Ot 525.9 03/22/2013 YULY RODRIGUEZ DOA K Ot 574.20 CHOLELITHIASIS NOS 03/22/2013 SRIDEVI RODRIGUEZ DO K Ot 789.00 ABDOMINAL PAIN, UNSPECIFIED SITE 03/29/2013 DWAINE SALAZAR LY K 311 DEPRESSIVE DISORDER NOT ELSEWHERE CLASSIFIED 03/29/2013 JIM BRUCE MD 311 DEPRESSIVE DISORDER NOT ELSEWHERE CLASSIFIED 03/29/2013 JIM BRUCE MD 311 DEPRESSIVE DISORDER NOT ELSEWHERE CLASSIFIED 03/29/2013 [facility] R 311 DEPRESSIVE DISORDER NOT ELSEWHERE CLASSIFIED 03/29/2013 JIM BRUCE MD 311 DEPRESSIVE DISORDER NOT ELSEWHERE CLASSIFIED 03/29/2013 JIM BRUCE MD 311 DEPRESSIVE DISORDER NOT ELSEWHERE CLASSIFIED 05/07/2013 JIM BRUCE MD N 530.81 GERD 05/07/2013 JIM BRUCE MD 530.81 GERD 05/07/2013 [facility] R 530.81 GERD 05/07/2013 JIM BRUCE MD 530.81 GERD 05/07/2013 JIM BRUCE MD 530.81 GERD 08/12/2013 PETRA KWAN MD Ot 401.9 HYPERTENSION NOS 08/12/2013 PETRA KWAN MD T Ot 786.52 PAINFUL RESPIRATION 08/12/2013 PETRA KWAN MD T Ot 786.59 CHEST PAIN NEC 08/13/2013 [facility] R 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 08/13/2013 JIM BRUCE MD N 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 08/13/2013 JIM BRUCE MD N 309.28 AD ADJ D/O W ANX DEP [...] DO Ot V74.8 05/27/2015 JONATHON SANDERS DO Ot 574.20 05/27/2015 JONATHON SANDERS DO Ot V72.63 05/27/2015 JONATHON SANDERS DO Ot V74.8 02/11/2017 Brokob, Renae A 466.0 ACUTE BRONCHITIS 02/11/2017 Brokob, Renae A J20.9 ACUTE BRONCHITIS, UNSPECIFIED 03/16/2017 JONATHON SANDERS DO Ot 574.20 CHOLELITHIASIS NOS 03/16/2017 JONATHON SANDERS DO Ot V72.63 PRE-PROCEDURAL LABORATORY EXAMINATION 03/16/2017 JONATHON SANDERS DO Ot V74.8 SCREEN-BACTERIAL DIS NEC 03/16/2017 SANDERSJONATHON HALL DO Ot 574.20 CHOLELITHIASIS NOS 03/16/2017 [place] JONATHON SALAZAR Ot V72.63 PRE-PROCEDURAL LABORATORY EXAMINATION 03/16/2017 SANDERSJONATHON HALL DO Ot V74.8 SCREEN-BACTERIAL DIS NEC 04/15/2018 EM HOFF APRN Ot F12.10 CANNABIS ABUSE, UNCOMPLICATED 04/15/2018 EM HOFF APRN Ot F32.9 MAJOR DEPRESSIVE DISORDER, SINGLE EPISOD 04/15/2018 EM HOFF APRN Ot F41.9 ANXIETY DISORDER, UNSPECIFIED 04/15/2018 EM HOFF WIRE FRAME MAKER Ot I10 ESSENTIAL (PRIMARY) HYPERTENSION 04/15/2018 EM [...] Z88.8 ALLERGY STATUS TO OTH DRUG/MEDS/BIOL SUB 04/23/2018 TEODORA SANCHEZ MD Ot F12.10 CANNABIS ABUSE, UNCOMPLICATED 04/23/2018 TEODORA SANCHEZ MD Ot F17.210 NICOTINE DEPENDENCE, CIGARETTES, UNCOMPL 04/23/2018 TEODORA SANCHEZ MD Ot F32.9 MAJOR DEPRESSIVE DISORDER, SINGLE EPISOD 04/23/2018 TEODORA SANCHEZ MD Ot F41.9 ANXIETY DISORDER, UNSPECIFIED 04/23/2018 TEODORA SANCHEZ MD Ot I10 ESSENTIAL (PRIMARY) HYPERTENSION 04/23/2018 TEODORA SANCHEZ MD Ot K21.9 GASTRO-ESOPHAGEAL REFLUX DISEASE WITHOUT 04/23/2018 TEODORA SANCHEZ MD Ot R07.89 OTHER CHEST PAIN 04/23/2018 TEODORA SANCHEZ MD Ot Z87.19 PERSONAL HISTORY OF OTHER DISEASES OF TH 04/23/2018 TEODORA SANCHEZ MD Ot Z87.448 PERSONAL HISTORY OF OTHER DISEASES OF UR 04/23/2018 TEODORA SANCHEZ MD Ot Z88.8 ALLERGY STATUS TO OTH DRUG/MEDS/BIOL SUB 04/23/2018 TEODORA SANCHEZ MD Ot Z90.49 ACQUIRED ABSENCE OF OTHER SPECIFIED PART 04/23/2018 TEODORA SANCHEZ MD Ot Z91.5 PERSONAL HISTORY OF SELF-HARM 04/24/2018 JOSUÉ BOYCE MD Ot F12.10 CANNABIS ABUSE, UNCOMPLICATED 04/24/2018 JOSUÉ BOYCE MD Ot F17.210 NICOTINE DEPENDENCE, CIGARETTES, UNCOMPL 04/24/2018 JOSUÉ BOYCE MD Ot F32.9 MAJOR DEPRESSIVE DISORDER, SINGLE EPISOD 04/24/2018 JOSUÉ BOYCE MD Ot F41.0 PANIC DISORDER [EPISODIC PAROXYSMAL ANXI 04/24/2018 JOSUÉ BOYCE MD Ot I10 ESSENTIAL (PRIMARY) HYPERTENSION 04/24/2018 JOSUÉ BOYCE MD Ot Z87.19 PERSONAL HISTORY OF OTHER DISEASES OF TH 04/24/2018 JOSUÉ BOYCE MD Ot Z87.448 PERSONAL HISTORY OF OTHER DISEASES OF UR 04/24/2018 JOSUÉ BOYCE MD Ot Z88.8 ALLERGY STATUS TO OT DRUG/MEDS/BIOL SUB 04/24/2018 JOSUÉ BOYCE MD Ot Z91.5 PERSONAL HISTORY OF SELF-HARM 04/25/2018 Maren Morton W 300.00 ANXIETY STATE, UNSPECIFIED 04/25/2018 MortonMaren A A 300.01 PANIC DISORDER WITHOUT AGORAPHOBIA 04/25/2018 Praveen Maren A A F41.0 PANIC DISORDER [EPISODIC PAROXYSMAL ANXIETY] 04/25/2018 Maren Morton A W F41.9 ANXIETY DISORDER, UNSPECIFIED Procedures Code Description [place] [address] ROUTINE VENIPUNCTURE 05/08/2013 96855 CMP 05/08/2013 59934 LIPID PANEL 05/08/2013 40555 PSYCH DIAGNOSTIC EVALUATION 08/14/2013 16099 ROUTINE VENIPUNCTURE 12/12/2013 60615 CMP 12/12/2013 25322 LIPID PANEL 12/12/2013 Results Test Result Range [...] i.cardiac measurement (mass/volume) < ng/ mL <0.30 Thyroid Stimulating Hormone - 04/24/18 22:35 TSH 2.27 mIU/mL 0.32-5.00 Rapid Drug Screen + ETOH,Medical - 04/24/18 22:36 Amphetamine NEGATIVE NEGATIVE Barbiturates NEGATIVE NEGATIVE Benzodiazepines NEGATIVE NEGATIVE Cocaine NEGATIVE NEGATIVE Ethanol, Urine <10.00 mg/dL 20.00-80.00 Marijuana POSITIVE NEGATIVE Methylenedioxymethamphetamine NEGATIVE NEGATIVE Opiates NEGATIVE NEGATIVE Oxycodone NEGATIVE NEGATIVE Phencyclidine NEGATIVE NEGATIVE Propoxyphene NEGATIVE NEGATIVE Tricyclic Antidepressant NEGATIVE NEGATIVE Encounters ACCT No. Visit Date/Time Discharge Status Pt. Type Provider Facility Loc./Unit Complaint [id number] 12/12/2013 10:09:00 12/12/2013 23:59:59 [facility] Outpatient JIM BRUCE MD [id number] 08/20/2013 14:13:00 08/20/2013 23:59:59 [facility] Outpatient JIM BRUCE MD [id number] 08/13/2013 12:46:00 08/13/2013 23:59:59 [id number] 05/08/2013 09:23:00 05/08/2013 23:59:59 CLS Outpatient JIM BRUCE MD [id number] 05/07/2013 10:12:00 05/07/2013 23:59:59 CLS Outpatient JIM BRUCE MD [id number] 03/29/2013 14:38:00 03/29/2013 23:59:59 CLS Outpatient DWAINE LY K [id number] 04/26/2018 04:30:00 04/26/2018 06:35:00 DIS Outpatient MAURILIO ALEX [facility] ER [id number] 04/24/2018 21:23:00 04/25/2018 00:17:00 DIS Outpatient Praveen Maren Kirk [facility] ER [id number] 02/11/2017 22:22:00 02/11/2017 23:22:00 DIS Outpatient Renae Padilla [facility] ER [id number] 02/11/2017 22:58:40 Document Registration [id number] 04/22/2018 16:14:00 04/22/2018 19:17:00 DIS Outpatient JOSUÉ BOYCE MD [facility] ER SEIZURE [id number] 04/19/2018 10:13:00 04/19/2018 12:13:00 DIS Outpatient TEODORA SANCHEZ MD [facility] ER DIZZINESS,CHEST PRESSURE [id number] 04/15/2018 10:24:00 04/15/2018 12:41:00 DIS Emergency EM HOFF APRN [facility] ER HEART RACING,DIZZY [id number] 03/16/2017 12:06:00 03/16/2017 13:59:00 DIS Emergency EM HOFF APRN [facility] ER VERTIGO WHILE DRIVING [id number] 12/04/2014 06:00:00 12/04/2014 15:00:00 DIS Outpatient JONATHON SANDERS DO [facility] GALLSTONES [id number] 11/27/2014 10:29:00 11/27/2014 23:59:59 CLS Outpatient SANDERS JONATHON [facility] PREOP GALLSTONES [id number] 08/13/2014 18:37:00 08/13/2014 21:10:00 DIS Emergency VIVI CHAPMAN [facility] ER SUICIDAL IDEATION [id number] 07/20/2014 02:13:00 07/20/2014 04:14:00 DIS Emergency SRIDEVI RODRIGUEZ DO [facility] ER ABD/BACK PAIN [id number] 01/19/2014 20:11:00 01/19/2014 23:59:59 CLS Emergency [id number] 08/12/2013 18:54:00 08/12/2013 20:58:00 DIS Emergency PETRA KWAN MD [facility] ER CHEST WALL PAIN [id number] 03/22/2013 19:19:00 03/22/2013 21:43:00 DIS Emergency SRIDEVI RODRIGUEZ DO [facility] ER ABD PAIN [id number] 04/30/2018 14:30:00 PEN Preadmit EM HOFF APRN [facility] CARD PALPATIONS [id number] 08/08/2010 00:33:00 Document Registration [id number] 04/05/2010 09:38:00 Document Registration [id number] 01/01/2018 13:20:00 01/01/2018 23:59:59 CLS Outpatient [facility] [id number] 01/01/2018 13:20:00 Document Registration [id number] 04/14/2017 09:20:00 Document Registration
== END | disposition left against medical advice (07) ==
LOC: EDUNIT# 03:05 → ER 03:08
DX: F41.0 Panic disorder [episodic paroxysmal anxiety] (principal); R25.9 Unspecified abnormal involuntary movements; Z91.19 Patient's noncompliance with other medical treatment and regimen

== ENCOUNTER → 2018-05-09 | Outpatient (CLI) | payer OTHER ==
[~2018-05-09] MED LIST changes: +GADOBUTROL 15 MMOL/15 ML (GADAVIST) VIAL IV ONE
--- NOTE | 2018-05-09 09:49 | Diagnostic Imaging Report ---
PROCEDURE: MR imaging of the brain with and without contrast. TECHNIQUE: Multiplanar, multisequence MR imaging of the brain was performed with and without contrast. INDICATION: Left-sided headache and dizziness for one month. No prior MRI study is available for comparison. FINDINGS: The ventricles and sulci are within normal limits. No sulcal effacement or midline shift is identified. No diffusion restriction is seen. The normal expected flow-voids within the carotid siphons are identified. No acute intra-axial or extra-axial hemorrhage is detected. No abnormal enhancing mass is seen. There are some enhancing vessels in the left cerebellar hemisphere consistent with developmental venous anomaly such as venous angioma. The corpus callosum is unremarkable. The sella and parasellar structures are unremarkable. IMPRESSION: Unremarkable pre-and postcontrast MRI of the brain. Dictated by: Dictated on workstation # [id number]
== END ==
LOC: RAD 08:31
PROVIDERS: ATTEND Nurse Practitioner Primary Care
DX: R56.9 Unspecified convulsions (principal); R51 Headache; R42 Dizziness and giddiness
CPT/HCPCS: 70553

== ENCOUNTER 2018-06-04 | Outpatient (RCR) | payer OTHER ==
[~2018-06-04] MED LIST changes: -GADOBUTROL 15 MMOL/15 ML (GADAVIST) VIAL IV ONE
== END 2018-08-07 | disposition home or self-care (01) ==
LOC: CARD
PROVIDERS: ATTEND Nurse Practitioner Family
DX: R42 Dizziness and giddiness (principal); R00.2 Palpitations
CPT/HCPCS: 93270

== ENCOUNTER 2019-07-03 12:21 | Emergency (ER) | payer SELFPAY ==
[~2019-07-03] VITALS: Ht 177.8 cm; Wt 143.2 kg
[2019-07-03] MEDS ORDERED: KETOROLAC 30 MG/ML VIAL IVP ONE (12:30)
[2019-07-03] MEDS ORDERED: MECLIZINE 25 MG (ANTIVERT) TAB PO ONE (12:30)
--- NOTE | 2019-07-03 12:36 | ED General ---
General Stated Complaint: LEFT SIDE NUMBNESS;CHEST PAIN;NECK SWELLING;DIZZY Source of Information: Patient Exam Limitations: No Limitations History of Present Illness Date Seen by Provider: Jul 03, 2019 Time Seen by Provider: 12:31 Initial Comments To ER with reports of posterior left neck swelling, fatigue, dizziness worsened by movement, pressure in his head, palpitations. The symptoms have been ongoing for over a year, however last night he developed some numbness affecting the left leg and left arm. Those symptoms are still present but improved since last night. He reported to RN that every time he smokes weed he gets these symptoms. Timing/Duration: 1-2 Days Severity: Moderate Associated Systoms: Headaches, Weakness Allergies and Home Medications Allergies Coded Allergies: alprazolam (Unverified Allergy, Unknown, MAKES HIM VIOLENT, 11/27/14) Home Medications Hydroxyzine Pamoate 25 Mg Capsule, 25 MG PO Q6H PRN for ANXIETY Prescribed by: EM HOFF on 04/15/18 1135 Promethazine HCl 25 Mg Tablet, 25 MG PO Q8H PRN for NAUSEA/VOMITING Prescribed by: EM HOFF on 03/16/17 1353 Patient Home Medication List Home Medication List Reviewed: Yes Review of Systems Review of Systems Constitutional: see HPI, dizziness EENTM: see HPI Respiratory: no symptoms reported Cardiovascular: no symptoms reported Genitourinary: no symptoms reported Musculoskeletal: no symptoms reported Skin: no symptoms reported Psychiatric/Neurological: No Symptoms Reported, Headache, Numbness Hematologic/Lymphatic: No Symptoms Reported Immunological/Allergic: no symptoms reported Past Qjjnuis-Hgbdmy-Jpydeg Hx Patient Social History Drug of Choice: MARIJUANA Type Used: Cigarettes Recent Foreign Travel: No Contact w/Someone Who Travel: No Recent Hopitalizations: No Immunizations Up To Date Tetanus Booster (TDap): Less than 5yrs PED Vaccines UTD: Yes Seasonal Allergies Seasonal Allergies: No Past Medical History Surgeries: Yes ( RIGHT inguinal hernia) Abdominal, Gallbladder Respiratory: No Cardiac: Yes (HAS NEVER TAKEN BP MEDS) Hypertension Neurological: No Gastrointestinal: Yes Gall Bladder Disease Musculoskeletal: No Endocrine: No Cancer: No Psychosocial: Yes Anxiety, Suicide Attempts, Depression Integumentary: No Blood Disorders: No Adverse Reaction/Blood Tranf: No Family Medical History No Pertinent Family Hx Physical Exam Vital Signs Vital Signs - First Documented 07/03/19 12:23 Temp 36.4 Pulse 89 Resp 18 B/P (MAP) 125/83 (97) Pulse Ox 96 O2 Delivery Room Air Capillary Refill : Height, Weight, BMI Height: 5'10.00" Weight: 255lbs. 0oz. 115.349763wu; 40.31 BMI Method:Stated General Appearance: No Apparent Distress, WD/WN Eyes: Bilateral Eye Normal Inspection, Bilateral Eye PERRL, Bilateral Eye EOMI HEENT: PERRL/EOMI, TMs Normal, Other (questionable swelling/muscle spasm at the insertion of the trapezius to the occiput on the left, no overlying erythema or ecchymosis or tenderness) Neck: Full Range of Motion, Normal Inspection Respiratory: No Accessory Muscle Use, No Respiratory Distress Cardiovascular: Regular Rate, Rhythm, Normal Peripheral Pulses Gastrointestinal: Normal Bowel Sounds, Non Tender, Soft Extremity: Normal Capillary Refill, Normal Inspection Neurologic/Psychiatric: Alert, Oriented x3 Progress/Results/Core Measures Suspected Sepsis SIRS Temperature: Pulse: Respiratory Rate: Laboratory Tests 07/03/19 12:34: White Blood Count 7.0 Blood Pressure / Mean: Laboratory Tests 07/03/19 12:34: Creatinine 1.07, Platelet Count 263, Total Bilirubin 0.8 Results/Orders Lab Results Laboratory Tests Test 07/03/19 12:34 Range/Units White Blood Count 7.0 4.3-11.0 10^3/uL Red Blood Count 5.15 4.35-5.85 10^6/uL Hemoglobin 16.2 13.3-17.7 G/DL Hematocrit 47 40-54 % Mean Corpuscular Volume 92 80-99 FL Mean Corpuscular Hemoglobin 32 25-34 PG Mean Corpuscular Hemoglobin Concent 34 32-36 G/DL Red Cell Distribution Width 12.3 10.0-14.5 % Platelet Count 263 130-400 10^3/uL Mean Platelet Volume 10.4 7.4-10.4 FL Neutrophils (%) (Auto) 56 42-75 % Lymphocytes (%) (Auto) 37 12-44 % Monocytes (%) (Auto) 5 0-12 % Eosinophils (%) (Auto) 2 0-10 % Basophils (%) (Auto) 0 0-10 % Neutrophils # (Auto) 3.9 1.8-7.8 X 10^3 Lymphocytes # (Auto) 2.6 1.0-4.0 X 10^3 Monocytes # (Auto) 0.4 0.0-1.0 X 10^3 Eosinophils # (Auto) 0.1 0.0-0.3 10^3/uL Basophils # (Auto) 0.0 0.0-0.1 10^3/uL Sodium Level 137 135-145 MMOL/L Potassium Level 3.9 3.6-5.0 MMOL/L Chloride Level 102 98-107 MMOL/L Carbon Dioxide Level 22 21-32 MMOL/L Anion Gap 13 5-14 MMOL/L Blood Urea Nitrogen 18 7-18 MG/DL Creatinine 1.07 0.60-1.30 MG/DL Estimat Glomerular Filtration Rate > 60 BUN/Creatinine Ratio 17 Glucose Level 107 H 70-105 MG/DL Calcium Level 9.6 8.5-10.1 MG/DL Corrected Calcium 8.5-10.1 MG/DL Total Bilirubin 0.8 0.1-1.0 MG/DL Aspartate Amino Transf (AST/SGOT) 27 5-34 U/L Alanine Aminotransferase (ALT/SGPT) 35 0-55 U/L Alkaline Phosphatase 76 40-136 U/L Total Protein 7.7 6.4-8.2 GM/DL Albumin 4.7 H 3.2-4.5 GM/DL My Orders Orders - EM HOFF APRN Cbc With Automated Diff (07/03/19 12:29) Comprehensive Metabolic Panel (07/03/19 12:29) Ekg Tracing (07/03/19 12:29) Ct Head Wo (07/03/19 12:29) Ketorolac Injection (Toradol Injection) (07/03/19 12:30) Meclizine Tablet (Antivert Tablet) (07/03/19 12:30) Ed Iv/Invasive Line Start (07/03/19 12:29) Medications Given in ED Current Medications Medications Dose Ordered Sig/Lakshmi Route Start Time Stop Time Status Last Admin Dose Admin Ketorolac Tromethamine 15 mg ONCE ONCE IVP 07/03/19 12:30 07/03/19 12:31 DC 07/03/19 12:49 15 MG Meclizine HCl 25 mg ONCE ONCE PO 07/03/19 12:30 07/03/19 12:31 DC 07/03/19 12:49 25 MG Vital Signs/I&O 07/03/19 12:23 Temp 36.4 Pulse 89 Resp 18 B/P (MAP) 125/83 (97) Pulse Ox 96 O2 Delivery Room Air Capillary Refill : Departure Impression Primary Impression: General symptom Disposition: 01 HOME, SELF-CARE Condition: Stable Departure-Patient Inst. Decision time for Depature: 13:12 Referrals: [facility] (PCP/Family) Primary Care Physician Patient Instructions: Paresthesias (DC) Add. Discharge Instructions: 1. Follow-up with your doctor this week for recheck. EM HOFF APRN Jul 03, 2019 12:36
[2019-07-03 12:40] LABS: BASOPHILS % (AUTO) 0 % (0-10); EOSINOPHILS # (AUTO) 0.1 10^3/uL (0.0-0.3); EOSINOPHILS % (AUTO) 2 % (0-10); HEMATOCRIT 47 % (40-54); HEMOGLOBIN 16.2 G/DL (13.3-17.7); LYMPHOCYTES # (AUTO) 2.6 X 10^3 (1.0-4.0); LYMPHOCYTES % (AUTO) 37 % (12-44); MEAN CORPUSCULAR HEMOGLOBIN 32 PG (25-34); MEAN CORPUSCULAR HGB CONC 34 G/DL (32-36); MEAN CORPUSCULAR VOLUME 92 FL (80-99); MEAN PLATELET VOLUME 10.4 FL (7.4-10.4); MONOCYTES # (AUTO) 0.4 X 10^3 (0.0-1.0); MONOCYTES % (AUTO) 5 % (0-12); NEUTROPHILS # (AUTO) 3.9 X 10^3 (1.8-7.8); NEUTROPHILS % (AUTO) 56 % (42-75); PLATELET COUNT 263 10^3/uL (130-400); RED CELL DISTRIBUTION WIDTH 12.3 % (10.0-14.5)
[2019-07-03 12:57] LABS: ALANINE AMINOTRANSFERASE 35 U/L (0-55); ALBUMIN 4.7 GM/DL (3.2-4.5); ALKALINE PHOSPHATASE 76 U/L (40-136); BILIRUBIN,TOTAL 0.8 MG/DL (0.1-1.0); BUN/CREATININE RATIO 17; CALCIUM 9.6 MG/DL (8.5-10.1); CARBON DIOXIDE 22 MMOL/L (21-32); CHLORIDE 102 MMOL/L (98-107); CREATININE SERUM 1.07 MG/DL (0.60-1.30); GFR ESTIMATED > 60; GLUCOSE 107 MG/DL (70-105); POTASSIUM 3.9 MMOL/L (3.6-5.0); SODIUM 137 MMOL/L (135-145); TOTAL PROTEIN 7.7 GM/DL (6.4-8.2)
--- NOTE | 2019-07-03 13:10 | Diagnostic Imaging Report ---
PROCEDURE: CT head without contrast. TECHNIQUE: Multiple contiguous axial images were obtained through the brain without the use of intravenous contrast. Auto Exposure Controls were utilized during the CT exam to meet ALARA standards for radiation dose reduction. INDICATION: Left-sided numbness. COMPARISON: 11/14/2007 FINDINGS: No large acute territorial ischemia, mass, or hemorrhage. No midline shift or mass effect. The ventricles, cortical sulci, and basilar cisterns are patent and unremarkable. The calvarium is intact. The visualized paranasal sinuses are clear. IMPRESSION: 1. No large acute territorial ischemia, mass, or hemorrhage. Dictated by: Dictated on workstation # [id number]
[2019-07-03 13:21] VITALS: BP 123/88
== END 2019-07-03 13:21 | disposition home or self-care (01) ==
LOC: EDUNIT# 12:21 → ER 12:22
DX: R22.1 Localized swelling, mass and lump, neck (principal); R53.83 Other fatigue; R42 Dizziness and giddiness; R00.2 Palpitations; R20.2 Paresthesia of skin; I10 Essential (primary) hypertension; F41.9 Anxiety disorder, unspecified; F32.9 Major depressive disorder, single episode, unspecified; Z88.8 Allergy status to other drugs, medicaments and biological substances; Z91.14 Patient's other noncompliance with medication regimen
CPT/HCPCS: 36415; 70450; 80053; 85025; 93005

== ENCOUNTER 2020-04-05 21:26 | Emergency (ER) | payer SELFPAY ==
[~2020-04-05] VITALS: Ht 178 cm; Wt 147.4 kg
[2020-04-05] MEDS ORDERED: LACTATED RINGERS 1,000 ML IV ONE (22:09)
[2020-04-05] MEDS ORDERED: LORazepam INJ 2 MG/ML (ATIVAN) VIAL IVP ONE (22:15)
[2020-04-05] MEDS ORDERED: MECLIZINE 25 MG (ANTIVERT) TAB PO ONE (22:15)
[2020-04-05 22:25] LABS: BASOPHILS % (AUTO) 0 % (0-10); EOSINOPHILS # (AUTO) 0.2 10^3/uL (0.0-0.3); EOSINOPHILS % (AUTO) 2 % (0-10); HEMATOCRIT 46 % (40-54); HEMOGLOBIN 15.6 g/dL (13.3-17.7); LYMPHOCYTES # (AUTO) 3.1 10^3/uL (1.0-4.0); LYMPHOCYTES % (AUTO) 35 % (12-44); MEAN CORPUSCULAR HEMOGLOBIN 32 pg (25-34); MEAN CORPUSCULAR HGB CONC 34 g/dL (32-36); MEAN CORPUSCULAR VOLUME 93 fL (80-99); MEAN PLATELET VOLUME 10.6 fL (9.0-12.2); MONOCYTES # (AUTO) 0.4 10^3/uL (0.0-1.0); MONOCYTES % (AUTO) 5 % (0-12); NEUTROPHILS % (AUTO) 57 % (42-75); PLATELET COUNT 285 10^3/uL (130-400); WHITE BLOOD COUNT 8.8 10^3/uL (4.3-11.0)
[2020-04-05 22:29] LABS: ALBUMIN 4.5 GM/DL (3.2-4.5); CHLORIDE 105 MMOL/L (98-107); SODIUM 139 MMOL/L (135-145)
[2020-04-05 22:30] LABS: CALCIUM 9.2 MG/DL (8.5-10.1)
[2020-04-05 22:32] LABS: GLUCOSE 90 MG/DL (70-105); TOTAL PROTEIN 7.5 GM/DL (6.4-8.2)
[2020-04-05 22:33] LABS: CARBON DIOXIDE 22 MMOL/L (21-32)
[2020-04-05 22:34] LABS: BILIRUBIN,TOTAL 0.3 MG/DL (0.1-1.0)
[2020-04-05 22:35] LABS: ALKALINE PHOSPHATASE 68 U/L (40-136); CREATININE SERUM 0.97 MG/DL (0.60-1.30); GFR ESTIMATED > 60
--- NOTE | 2020-04-05 22:35 | ED General ---
General Chief Complaint: Neurological Problems Stated Complaint: DIZZINESS Nursing Triage Note: Pt presents to room #2 via [facility] ems cart from home with c/o dizziness et shakiness. Pt arrives laying in prone position reporting if he lays supine or on his side, he "shakes uncontrollably" et gets "pain everywhere." Pt reports he has been experiencing "attacks for a couple years now." reports seizure hx. A&OX4. Nursing Sepsis Screen: No Definite Risk Source of Information: Patient Exam Limitations: No Limitations History of Present Illness Date Seen by Provider: Apr 05, 2020 Time Seen by Provider: 21:55 Initial Comments Here with report of dizziness that started couple hours ago. States that he gets these intermittently for a couple of years now. He is following with neurology at and is due to go into the hospital there after Thanks for further evaluation. Admits to taking Xanax 3 times daily for this which helps. States that he gets those in a variety of places but they are not prescribed. Use to smoke marijuana but has stopped that because that causes the problem. States when he gets these attacks his shakes all over and then passes out and wakes up and it's gone until the next one. Tonight he was a couple hours late on his dose of Xanax. Because of that he started having symptoms and he took a tablet and It under his tongue. This did not fede the symptoms and after a couple hours he finally decided to call EMS who brought him in. EMS reports nystagmus when sitting up but better when he is laying face down. That's the position he is in on my evaluation. Timing/Duration: 1-3 Hours Severity: Moderate Modifying Factors: improves with Medication; worse with Movement Associated Systoms: No Cough, No Fever/Chills, No Nausea/Vomiting, No Shortness of Air, No Weakness Allergies and Home Medications Allergies Coded Allergies: alprazolam (Unverified Allergy, Unknown, MAKES HIM VIOLENT, 11/27/14) Home Medications Hydroxyzine Pamoate 25 Mg Capsule, 25 MG PO Q6H PRN for ANXIETY Prescribed by: EM HOFF on 04/15/18 1135 Promethazine HCl 25 Mg Tablet, 25 MG PO Q8H PRN for NAUSEA/VOMITING Prescribed by: EM HOFF on 03/16/17 1353 Patient Home Medication List Home Medication List Reviewed: Yes Review of Systems Review of Systems Constitutional: see HPI; No chills, No fever EENTM: see HPI; No hearing loss, No eye pain, No vision loss Respiratory: No cough, No short of breath Cardiovascular: No chest pain, No edema Gastrointestinal: No abdominal pain Genitourinary: no symptoms reported Musculoskeletal: no symptoms reported Skin: no symptoms reported Psychiatric/Neurological: See HPI, Seizure (reports being evaluated for seizures.) Past Yvnvcru-Gshejl-Tzdkls Hx Past Med/Social Hx: Reviewed Nursing Past Med/Soc Hx Patient Social History Alcohol Use: Denies Use Recreational Drug Use: No Drug of Choice: MARIJUANA Type Used: Cigarettes 2nd Hand Smoke Exposure: Yes Recent Foreign Travel: No Contact w/Someone Who Travel: No Recent Infectious Disease Expo: No Recent Hopitalizations: No Immunizations Up To Date Tetanus Booster (TDap): Less than 5yrs PED Vaccines UTD: Yes Seasonal Allergies Seasonal Allergies: No Past Medical History Surgeries: Yes ( RIGHT inguinal hernia) Abdominal, Gallbladder Respiratory: No Cardiac: Yes Hypertension Neurological: No Gastrointestinal: Yes Gall Bladder Disease Musculoskeletal: No Endocrine: No Cancer: No Psychosocial: Yes Anxiety, Suicide Attempts, Depression Integumentary: No Blood Disorders: No Adverse Reaction/Blood Tranf: No Family Medical History Reviewed Nursing Family Hx No Pertinent Family Hx Physical Exam Vital Signs Vital Signs - First Documented 04/05/20 21:48 Temp 36.1 Pulse 96 Resp 18 B/P (MAP) 139/98 (112) Pulse Ox 96 O2 Delivery Room Air Capillary Refill : Less Than 3 Seconds Height, Weight, BMI Height: 5'10.00" Weight: 255lbs. 0oz. 115.614492pl; 46.00 BMI Method:Stated General Appearance: No Apparent Distress, Anxious, Obese HEENT: PERRL/EOMI, Pharynx Normal, Other (no nystagmus noted in the lying down position but when sitting up he had to close his eyes and I'm unsure of nystagmus at that point.) Neck: Non Tender, Supple Respiratory: Lungs Clear, Normal Breath Sounds Cardiovascular: Regular Rate, Rhythm, No Murmur Gastrointestinal: Non Tender, Soft Back: Normal Inspection, No CVA Tenderness, No Vertebral Tenderness Extremity: Normal Range of Motion, Non Tender Neurologic/Psychiatric: Alert, Oriented x3 Skin: Normal Color, Warm/Dry Progress/Results/Core Measures Suspected Sepsis Recent Fever Within 48 Hours: No Infection Criteria Present: None New/Unexplained Altered Menta: No Sepsis Screen: No Definite Risk SIRS Temperature: Pulse: 96 Respiratory Rate: 18 Laboratory Tests 04/05/20 22:00: White Blood Count 8.8 Blood Pressure 139 /98 Mean: 112 Laboratory Tests 04/05/20 22:00: Creatinine 0.97, Platelet Count 285, Total Bilirubin 0.3 Results/Orders Lab Results Laboratory Tests Test 04/05/20 22:00 Range/Units White Blood Count 8.8 4.3-11.0 10^3/uL Red Blood Count 4.90 4.30-5.52 10^6/uL Hemoglobin 15.6 13.3-17.7 g/dL Hematocrit 46 40-54 % Mean Corpuscular Volume 93 80-99 fL Mean Corpuscular Hemoglobin 32 25-34 pg Mean Corpuscular Hemoglobin Concent 34 32-36 g/dL Red Cell Distribution Width 11.7 10.0-14.5 % Platelet Count 285 130-400 10^3/uL Mean Platelet Volume 10.6 9.0-12.2 fL Immature Granulocyte % (Auto) 0 % Neutrophils (%) (Auto) 57 42-75 % Lymphocytes (%) (Auto) 35 12-44 % Monocytes (%) (Auto) 5 0-12 % Eosinophils (%) (Auto) 2 0-10 % Basophils (%) (Auto) 0 0-10 % Neutrophils # (Auto) 5.0 1.8-7.8 10^3/uL Lymphocytes # (Auto) 3.1 1.0-4.0 10^3/uL Monocytes # (Auto) 0.4 0.0-1.0 10^3/uL Eosinophils # (Auto) 0.2 0.0-0.3 10^3/uL Basophils # (Auto) 0.0 0.0-0.1 10^3/uL Immature Granulocyte # (Auto) 0.0 0.0-0.1 10^3/uL Sodium Level 139 135-145 MMOL/L Potassium Level 4.0 3.6-5.0 MMOL/L Chloride Level 105 98-107 MMOL/L Carbon Dioxide Level 22 21-32 MMOL/L Anion Gap 12 5-14 MMOL/L Blood Urea Nitrogen 17 7-18 MG/DL Creatinine 0.97 0.60-1.30 MG/DL Estimat Glomerular Filtration Rate > 60 BUN/Creatinine Ratio 18 Glucose Level 90 70-105 MG/DL Calcium Level 9.2 8.5-10.1 MG/DL Corrected Calcium 8.8 8.5-10.1 MG/DL Magnesium Level 2.1 1.6-2.4 MG/DL Total Bilirubin 0.3 0.1-1.0 MG/DL Aspartate Amino Transf (AST/SGOT) 19 5-34 U/L Alanine Aminotransferase (ALT/SGPT) 24 0-55 U/L Alkaline Phosphatase 68 40-136 U/L Total Protein 7.5 6.4-8.2 GM/DL Albumin 4.5 3.2-4.5 GM/DL TSH [place] Testing 1.09 0.35-4.94 UIU/ML My Orders Orders - TEODORA SANCHEZ MD Cbc With Automated Diff (04/05/20 22:09) Comprehensive Metabolic Panel (04/05/20 22:09) Magnesium (04/05/20 22:09) Thyroid Analyzer (04/05/20 22:09) Ed Iv/Invasive Line Start (04/05/20 22:09) Lactated Ringers (Lr 1000 Ml Iv Solution (04/05/20 22:09) Meclizine Tablet (Antivert Tablet) (04/05/20 22:15) Lorazepam Injection (Ativan Injection) (04/05/20 22:15) Medications Given in ED Current Medications Medications Dose Ordered Sig/Lakshmi Route Start Time Stop Time Status Last Admin Dose Admin Lactated Ringer's 1,000 ml @ 0 mls/hr Q0M ONCE IV 04/05/20 22:09 04/05/20 22:14 DC 04/05/20 22:31 0 MLS/HR Lorazepam 1 mg ONCE ONCE IVP 04/05/20 22:15 04/05/20 22:16 DC 04/05/20 22:31 1 MG Meclizine HCl 25 mg ONCE ONCE PO 04/05/20 22:15 04/05/20 22:16 DC 04/05/20 22:31 25 MG Vital Signs/I&O 04/05/20 21:48 Temp 36.1 Pulse 96 Resp 18 B/P (MAP) 139/98 (112) Pulse Ox 96 O2 Delivery Room Air Capillary Refill : Less Than 3 Seconds Blood Pressure Mean: 112 Progress Note : Progress Note Seen and evaluated. Reviewed previous history. He's had multiple evaluations for similar and currently undergoing evaluation at . I hesitate to do further imaging at this point as I do not believe that will benefit him and would be more harmful due to radiation exposure and lifetime dosing. Patient agrees. We will check basic labs and give LR 1 L bolus. Ativan 1 mg IV and meclizine 25 mg by mouth ordered. Monitor patient. 2336: Doing better unable to sit up and focus on his phone now. He did bite to rest in that position for a few minutes and then thinks to be okay to go home for which I agree. Discharged home with return precautions. Patient verbalize understanding of instructions and agreement with plan. Patient will follow up with his neurologist. Departure Impression Primary Impression: Dizziness Disposition: 01 HOME, SELF-CARE Condition: Improved Departure-Patient Inst. Decision time for Depature: 23:37 Referrals: [facility] [place] ([place]/Family) Primary Care Physician Patient Instructions: Vertigo (a Type of Dizziness) Add. Discharge Instructions: All discharge instructions reviewed with patient and/or family. Voiced understanding. Continue home medications as previously prescribed. Follow-up with your neurologist for recheck and further evaluation. Call them for appointment and continue to keep appointments as set. Return for pain, vision or balance problems, weakness, numbness, difficulty with speech or walking or other concerns as needed. TEODORA SANCHEZ MD Apr 05, 2020 22:35
[2020-04-05 22:36] LABS: BUN/CREATININE RATIO 18
[2020-04-05 22:38] LABS: ALANINE AMINOTRANSFERASE 24 U/L (0-55); MAGNESIUM 2.1 MG/DL (1.6-2.4)
[2020-04-05 22:58] LABS: TSH (THYROID ANALYZER) 1.09 UIU/ML (0.35-4.94)
[2020-04-05 23:57] VITALS: BP 138/98
== END 2020-04-06 | disposition home or self-care (01) ==
LOC: EDUNIT# 21:26 → ER 21:47
DX: R42 Dizziness and giddiness (principal); F41.9 Anxiety disorder, unspecified; E66.9 Obesity, unspecified; Z68.42 Body mass index [BMI] 45.0-49.9, adult; Z77.22 Contact with and (suspected) exposure to environmental tobacco smoke (acute) (chronic); Z88.8 Allergy status to other drugs, medicaments and biological substances
CPT/HCPCS: 36415; 80053; 83735; 84443; 85025

== ENCOUNTER 2020-08-16 13:52 | Emergency (ER) | payer MEDICAID ==
[~2020-08-16] VITALS: Ht 177 cm; Wt 136.0 kg
[2020-08-16] MEDS ORDERED: NS 100 ML (IVPB) BAG IV ONE (14:45)
[2020-08-16] MEDS ORDERED: IOHEXOL 350 MG/ML 100 ML (OMNIPAQUE 350) VIAL IV ONE (14:45)
[2020-08-16] MEDS ORDERED: HOLD METFORMIN - RECEIVED CONTRAST 20 ML VIAL IV SCH (14:45)
[2020-08-16 14:47] LABS: BASOPHILS % (AUTO) 0 % (0-10); EOSINOPHILS # (AUTO) 0.2 10^3/uL (0.0-0.3); EOSINOPHILS % (AUTO) 2 % (0-10); HEMATOCRIT 47 % (40-54); HEMOGLOBIN 15.8 g/dL (13.3-17.7); LYMPHOCYTES # (AUTO) 2.1 10^3/uL (1.0-4.0); LYMPHOCYTES % (AUTO) 34 % (12-44); MEAN CORPUSCULAR HEMOGLOBIN 32 pg (25-34); MEAN CORPUSCULAR HGB CONC 34 g/dL (32-36); MEAN CORPUSCULAR VOLUME 93 fL (80-99); MEAN PLATELET VOLUME 10.1 fL (9.0-12.2); MONOCYTES # (AUTO) 0.4 10^3/uL (0.0-1.0); MONOCYTES % (AUTO) 6 % (0-12); NEUTROPHILS # (AUTO) 3.6 10^3/uL (1.8-7.8); NEUTROPHILS % (AUTO) 57 % (42-75); PLATELET COUNT 249 10^3/uL (130-400); WHITE BLOOD COUNT 6.3 10^3/uL (4.3-11.0)
[2020-08-16 15:00] LABS: ALBUMIN 4.4 GM/DL (3.2-4.5)
--- NOTE | 2020-08-16 15:00 | ED General ---
General Chief Complaint: Dizziness/Syncope Stated Complaint: DIZZY/L ARM NUMBNESS/BACK OF HEAD NUMB/SWELLING Nursing Triage Note: PT CO OF DIZZINESS, SEEING SPOTS, L ARM AND L LEG NUMBNESS AT TIMES, STATES HAS BEEN HAPPENING SINCE 2018. PT STATES DR IS AWARE OF CONDITION, STATES WANTS HIM TO BE TESTED FOR MS. STATES "DR WOULD NOT REFILL HIS XANAX FOR PAST YEAR SO HAS BEEN BUYING IT OFF THE [address]RE[address]" PT STATES HAS TO KEEP HEAD DOWN TO KEEP FROM GETTING DIZZY Nursing Sepsis Screen: No Definite Risk Source of Information: Patient Exam Limitations: No Limitations History of Present Illness Date Seen by Provider: Aug 16, 2020 Time Seen by Provider: 15:30 Initial Comments To ER with reports of intermittently seeing spots, left arm and left leg numbness at times. He was scheduled for MRI at recently but when he got up there realized that insurance would not cover it so he drove home. His sister has multiple sclerosis and he is concerned he may have the same. He also has dizziness. Timing/Duration: 1-2 Days Severity: Moderate Associated Systoms: Other Allergies and Home Medications Allergies Coded Allergies: alprazolam (Unverified Allergy, Unknown, MAKES HIM VIOLENT, 11/27/14) Home Medications Hydroxyzine Pamoate 25 Mg Capsule, 25 MG PO Q6H PRN for ANXIETY Prescribed by: EM HOFF on 04/15/18 1135 Promethazine HCl 25 Mg Tablet, 25 MG PO Q8H PRN for NAUSEA/VOMITING Prescribed by: EM HOFF on 03/16/17 1353 Patient Home Medication List Home Medication List Reviewed: Yes Review of Systems Review of Systems Constitutional: see HPI EENTM: see HPI Respiratory: no symptoms reported Cardiovascular: no symptoms reported Genitourinary: no symptoms reported Musculoskeletal: no symptoms reported Skin: no symptoms reported Psychiatric/Neurological: No Symptoms Reported Hematologic/Lymphatic: No Symptoms Reported Immunological/Allergic: no symptoms reported Past Wuwmbxv-Enwahb-Vegttc Hx Patient Social History Alcohol Use: Denies Use Drug of Choice: MARIJUANA Smoking Status: Current Everyday Smoker Type Used: Cigarettes 2nd Hand Smoke Exposure: Yes Recent Infectious Disease Expo: No Recent Hopitalizations: No Immunizations Up To Date Tetanus Booster (TDap): Less than 5yrs PED Vaccines UTD: Yes Seasonal Allergies Seasonal Allergies: No Past Medical History Surgeries: Yes ( RIGHT inguinal hernia) Abdominal, Gallbladder Respiratory: No Cardiac: Yes Hypertension Neurological: No Gastrointestinal: Yes Gall Bladder Disease Musculoskeletal: No Endocrine: No Cancer: No Psychosocial: Yes Anxiety, Suicide Attempts, Depression Integumentary: No Blood Disorders: No Adverse Reaction/Blood Tranf: No Family Medical History No Pertinent Family Hx Physical Exam Vital Signs Vital Signs - First Documented 08/16/20 14:10 Temp 36.1 Pulse 97 Resp 18 B/P (MAP) 139/95 (110) Pulse Ox 97 Capillary Refill : Less Than 3 Seconds Height, Weight, BMI Height: 5'10.00" Weight: 255lbs. 0oz. 115.952042qt; 43.00 BMI Method:Stated General Appearance: No Apparent Distress, WD/WN, Obese, Other (Distribution Center Assistant are equal, triceps strength is 5 out of 5 bilaterally, hip flexion 5 out of 5 bilaterally.) Eyes: Bilateral Eye Normal Inspection, Bilateral Eye PERRL, Bilateral Eye EOMI HEENT: PERRL/EOMI, TMs Normal Neck: Full Range of Motion, Normal Inspection Respiratory: No Accessory Muscle Use, No Respiratory Distress Cardiovascular: Regular Rate, Rhythm, Normal Peripheral Pulses Gastrointestinal: Normal Bowel Sounds, Non Tender, Soft Neurologic/Psychiatric: Alert, Oriented x3 Skin: Normal Color, Warm/Dry Progress/Results/Core Measures Suspected Sepsis Recent Fever Within 48 Hours: No Infection Criteria Present: None New/Unexplained Altered Menta: No Sepsis Screen: No Definite Risk SIRS Temperature: Pulse: 97 Respiratory Rate: 18 Laboratory Tests 08/16/20 14:40: White Blood Count 6.3 Blood Pressure 139 /95 Mean: 110 Laboratory Tests 08/16/20 14:40: Creatinine 0.84, Platelet Count 249, Total Bilirubin 0.4 Results/Orders Lab Results Laboratory Tests Test 08/16/20 14:40 Range/Units White Blood Count 6.3 4.3-11.0 10^3/uL Red Blood Count 5.00 4.30-5.52 10^6/uL Hemoglobin 15.8 13.3-17.7 g/dL Hematocrit 47 40-54 % Mean Corpuscular Volume 93 80-99 fL Mean Corpuscular Hemoglobin 32 25-34 pg Mean Corpuscular Hemoglobin Concent 34 32-36 g/dL Red Cell Distribution Width 11.8 10.0-14.5 % Platelet Count 249 130-400 10^3/uL Mean Platelet Volume 10.1 9.0-12.2 fL Immature Granulocyte % (Auto) 0 % Neutrophils (%) (Auto) 57 42-75 % Lymphocytes (%) (Auto) 34 12-44 % Monocytes (%) (Auto) 6 0-12 % Eosinophils (%) (Auto) 2 0-10 % Basophils (%) (Auto) 0 0-10 % Neutrophils # (Auto) 3.6 1.8-7.8 10^3/uL Lymphocytes # (Auto) 2.1 1.0-4.0 10^3/uL Monocytes # (Auto) 0.4 0.0-1.0 10^3/uL Eosinophils # (Auto) 0.2 0.0-0.3 10^3/uL Basophils # (Auto) 0.0 0.0-0.1 10^3/uL Immature Granulocyte # (Auto) 0.0 0.0-0.1 10^3/uL D-Dimer 0.27 0.00-0.49 UG/ML Sodium Level 136 135-145 MMOL/L Potassium Level 4.1 3.6-5.0 MMOL/L Chloride Level 102 98-107 MMOL/L Carbon Dioxide Level 24 21-32 MMOL/L Anion Gap 10 5-14 MMOL/L Blood Urea Nitrogen 12 7-18 MG/DL Creatinine 0.84 0.60-1.30 MG/DL Estimat Glomerular Filtration Rate > 60 BUN/Creatinine Ratio 14 Glucose Level 109 H 70-105 MG/DL Calcium Level 9.1 8.5-10.1 MG/DL Corrected Calcium 8.8 8.5-10.1 MG/DL Total Bilirubin 0.4 0.1-1.0 MG/DL Aspartate Amino Transf (AST/SGOT) 18 5-34 U/L Alanine Aminotransferase (ALT/SGPT) 31 0-55 U/L Alkaline Phosphatase 73 40-136 U/L Total Protein 7.4 6.4-8.2 GM/DL Albumin 4.4 3.2-4.5 GM/DL My Orders Orders - EM HOFF APRN Ed Iv/Invasive Line Start (08/16/20 14:29) Cbc With Automated Diff (08/16/20 14:29) Comprehensive Metabolic Panel (08/16/20 14:29) Fibrin Degradation Products (08/16/20 14:29) Ekg Tracing (08/16/20 14:29) Ct Angio Head/Neck (08/16/20 14:29) Iohexol Injection (Omnipaque 350 Mg/Ml 1 (08/16/20 14:45) Received Contrast (Hold Metformin- Contr (08/16/20 14:45) Ns (Ivpb) (Sodium Chloride 0.9% Ivpb Bag (08/16/20 14:45) Medications Given in ED Current Medications Medications Dose Ordered Sig/Lakshmi Route Start Time Stop Time Status Last Admin Dose Admin Iohexol 75 ml ONCE ONCE IV 08/16/20 14:45 08/16/20 14:46 DC 08/16/20 14:46 75 ML Sodium Chloride 100 ml ONCE ONCE IV 08/16/20 14:45 08/16/20 14:46 DC 08/16/20 14:46 80 ML Vital Signs/I&O 08/16/20 14:10 Temp 36.1 Pulse 97 Resp 18 B/P (MAP) 139/95 (110) Pulse Ox 97 Capillary Refill : Less Than 3 Seconds Blood Pressure Mean: 110 Departure Impression Primary Impression: Dizziness Disposition: 01 HOME, SELF-CARE Condition: Stable Departure-Patient Inst. Decision time for Depature: 15:29 Referrals: YOUSUF GUTIERRES APRN (PCP/Family) Primary Care Physician Patient Instructions: Dizziness, Adult ED Add. Discharge Instructions: 1. Based on the symptoms you are describing it sounds like MRI would be the next best test to evaluate them. Follow-up with your primary care provider to schedule MRI. Take the dizziness medication as directed. Return to ER for any concerns. All discharge instructions reviewed with patient and/or family. Voiced understanding. Scripts Meclizine HCl (Meclizine HCl) 25 Mg Tablet 25 MG PO TID, #10 TAB Prov: EM HOFF APRN 08/16/20 EM HOFF APRN Aug 16, 2020 15:00
[2020-08-16 15:01] LABS: CHLORIDE 102 MMOL/L (98-107); POTASSIUM 4.1 MMOL/L (3.6-5.0); SODIUM 136 MMOL/L (135-145)
[2020-08-16 15:02] LABS: CALCIUM 9.1 MG/DL (8.5-10.1)
[2020-08-16 15:03] LABS: GLUCOSE 109 MG/DL (70-105); TOTAL PROTEIN 7.4 GM/DL (6.4-8.2)
[2020-08-16 15:04] LABS: CARBON DIOXIDE 24 MMOL/L (21-32)
[2020-08-16 15:05] LABS: BILIRUBIN,TOTAL 0.4 MG/DL (0.1-1.0)
[2020-08-16 15:06] LABS: ALKALINE PHOSPHATASE 73 U/L (40-136); CREATININE SERUM 0.84 MG/DL (0.60-1.30); GFR ESTIMATED > 60
[2020-08-16 15:07] LABS: BUN/CREATININE RATIO 14
[2020-08-16 15:09] LABS: ALANINE AMINOTRANSFERASE 31 U/L (0-55)
--- NOTE | 2020-08-16 15:23 | Diagnostic Imaging Report ---
PROCEDURE: CT angiography of the head and CT angiography of the neck with and without contrast. TECHNIQUE: Contiguous noncontrast images were obtained from the skull base through the vertex. After intravenous contrast administration, helical CT angiography of the neck was performed. Source data was reformatted into 3D MIP projections. Delayed post contrast acquisition was also obtained. Auto Exposure Controls were utilized during the CT exam to meet ALARA standards for radiation dose reduction. INDICATION: Left arm and leg weakness, dizziness. COMPARISON: 07/03/2019. FINDINGS: No intracranial hemorrhage. No intracranial mass, mass effect, midline shift, herniation, hydrocephalus or extra-axial fluid collection. No definite CT evidence of an acute ischemic infarction. The orbits are unremarkable. The paranasal sinuses are clear. The calvarium and extracalvarial soft tissues are unremarkable. No enhancing intracranial mass lesion. No suspicious dural enhancement. The orbits are unremarkable. Muscles of mastication are unremarkable. Pharyngeal fat is symmetric and well maintained. The salivary glands are unremarkable. No focal fluid collection. The airway is patent. The thyroid gland is unremarkable. No apical pneumothorax. No significant adenopathy within the neck. Straightening of the normal cervical lordosis without significant anterolisthesis or retrolisthesis. No acute fracture or dislocation. No destructive osseous process. A three-vessel aortic arch is present. Diminutive left vertebral artery which predominantly terminating in PICA. Dominant right vertebral artery. The large arterial structures of the head and neck are otherwise unremarkable without evidence of occlusion, hemodynamically significant stenosis, dissection, aneurysm or pseudoaneurysm. The visualized large dural venous sinuses are patent. Mild mucosal thickening within the bilateral maxillary sinuses. Christi bullosa of the left middle turbinate. IMPRESSION: 1. No acute intracranial abnormality. 2. Besides congenital anatomic variants, as described above, the large arterial structures of the head and neck are unremarkable. 3. Straightening of the normal cervical lordosis, which may relate to muscle spasm or can simply be positional. No acute osseous abnormality within the cervical spine. 4. Should symptoms persist, consideration for an MRI of the brain could be made. Dictated by: Dictated on workstation # [id number]
[2020-08-16] MEDS ORDERED: MECL-149 PO (15:32)
[2020-08-16 16:13] VITALS: BP 133/91
== END 2020-08-16 16:13 | disposition home or self-care (01) ==
LOC: EDUNIT# 13:52 → ER 13:54
DX: R42 Dizziness and giddiness (principal); F41.9 Anxiety disorder, unspecified; F32.9 Major depressive disorder, single episode, unspecified; F17.210 Nicotine dependence, cigarettes, uncomplicated; Z91.5 Personal history of self-harm; Z88.8 Allergy status to other drugs, medicaments and biological substances
CPT/HCPCS: 36415; 70496; 70498; 80053; 85025; 85379; 93005

== ENCOUNTER → 2021-03-17 | Outpatient (CLI) | payer MEDICAID ==
[~2021-03-17] MED LIST changes: +CATHETER FLUSH 10 ML SYR IV PRN; +HOLD METFORMIN - RECEIVED CONTRAST 20 ML VIAL IV SCH; +IOHEXOL 350 MG/ML 100 ML (OMNIPAQUE 350) VIAL IV ONE; +MECL-149 PO; +NS 100 ML (IVPB) BAG IV ONE
--- NOTE | 2021-03-17 23:10 | Diagnostic Imaging Report ---
INDICATION: Pseudoseizures. Vision going dark and seeing spots. COMPARISON: CT angiographic study of 08/16/2020. FINDINGS: Right cervical vertebral dominant, the left is small but nonpathologic. This is stable. No focal vertebral irregularity. The bilateral common carotids, the carotid bulbs, bifurcations, the major external carotids and the cervical internal carotids are unremarkable. Branching pattern of the great vessels and aortic arch appear unremarkable. Visualized intracranial structures show the intrathecal left vertebral terminating as the PICA. Basilar was small in caliber but nonfocal and nonpathologic. There are PCOMs present, bilaterally. The visualized intracranial ICAs unremarkable. IMPRESSION: No hemodynamically significant cervical or proximal intracranial arterial stenosis. No acute arterial pathology or significant plaque. Dictated by: Dictated on workstation # [id number]
== END ==
LOC: RAD 15:16
PROVIDERS: ATTEND Chiropractor
DX: R56.9 Unspecified convulsions (principal)
CPT/HCPCS: 70498

== ENCOUNTER 2022-05-22 18:44 | Emergency (ER) | payer MEDICAID ==
[~2022-05-22 18:44] MED LIST changes: -CATHETER FLUSH 10 ML SYR IV PRN; -HOLD METFORMIN - RECEIVED CONTRAST 20 ML VIAL IV SCH; -IOHEXOL 350 MG/ML 100 ML (OMNIPAQUE 350) VIAL IV ONE; -NS 100 ML (IVPB) BAG IV ONE
[2022-05-22] MEDS ORDERED: cefTRIAXone 1 GM PRE-MIX 50 ML IV ONE (19:30)
--- NOTE | 2022-05-22 19:58 | ED Integumentary General ---
General Chief Complaint: Skin/Wound Problems Stated Complaint: LEFT THUMB SWOLLEN/RED Nursing Triage Note: PT ARRIVAL TO ER VIA PRIVATE VEHICLE FROM HOME WITH COMPLAINT OF WOUND TO LEFT THUMB THAT POPPED UP YESTERDAY. PATIENT STATES THAT IT INTIALLY ITCHED AND WHEN SCRATCHING IT, THE WOUND OPENED. ENTIRE THUMB IS RED AND VERY PAINFUL TO TOUCH. PATIENT HAS STREAKING TO LEFT FOREARM. PATIENT STATES HE HAS HISTORY OF BROWN RECLUSE BITE THAT WAS VERY SIMILAR SO HE WANTED TO BE CHECKED OUT. History of Present Illness Date Seen by Provider: May 22, 2022 Allergies and Home Medications Allergies Coded Allergies: alprazolam (Unverified Allergy, Unknown, MAKES HIM VIOLENT, 11/27/14) Patient Home Medication List Hydroxyzine Pamoate (Vistaril) 25 Mg Capsule, 25 MG PO Q6H PRN for ANXIETY Prescribed by: EM HOFF on 04/15/18 1135 Meclizine HCl (Meclizine HCl) 25 Mg Tablet, 25 MG PO TID Prescribed by: EM HOFF on 08/16/20 1532 Promethazine HCl (Promethazine Tablet) 25 Mg Tablet, 25 MG PO Q8H PRN for NAUSEA/VOMITING Prescribed by: EM HOFF on 03/16/17 1353 [B/P] , Unknown Dose, (Reported) Entered as Reported by: MARCO ALVARADO on 04/19/18 1035 Past Vnfvayc-Gxwoaz-Xtkvnj Hx Patient Social History Tobacco Use?: Yes Tobacco type used: Cigarettes Smoking Status: Current Everyday Smoker Use of E-Cig and/or Vaping dev: No Substance use?: No Alcohol Use?: No Pt feels they are or have been: No Immunizations Up To Date Tetanus Booster (TDap): Less than 5yrs PED Vaccines UTD: Yes Influenza Vaccine Up-to-Date: No; Not Current Seasonal Allergies Seasonal Allergies: No Past Medical History Surgeries: Yes ( RIGHT inguinal hernia) Abdominal, Gallbladder Respiratory: No Cardiac: Yes Hypertension Neurological: No Gastrointestinal: Yes Gall Bladder Disease Musculoskeletal: No Endocrine: No Cancer: No Psychosocial: Yes Anxiety, Suicide Attempts, Depression Integumentary: No Blood Disorders: No Adverse Reaction/Blood Tranf: No Family Medical History No Pertinent Family Hx Physical Exam Vital Signs Vital Signs - First Documented 05/22/22 19:00 Temp 37.0 Pulse 95 Resp 18 B/P (MAP) 151/93 (112) Pulse Ox 97 O2 Delivery Room Air Capillary Refill : Less Than 3 Seconds Progress/Results/Core Measures Results/Orders Lab Results Laboratory Tests Test 05/22/22 19:38 Range/Units White Blood Count 11.9 H 4.3-11.0 10^3/uL Red Blood Count 4.81 4.30-5.52 10^6/uL Hemoglobin 15.5 13.3-17.7 g/dL Hematocrit 45 40-54 % Mean Corpuscular Volume 94 80-99 fL Mean Corpuscular Hemoglobin 32 25-34 pg Mean Corpuscular Hemoglobin Concent 34 32-36 g/dL Red Cell Distribution Width 12.4 10.0-14.5 % Platelet Count 283 130-400 10^3/uL Mean Platelet Volume 10.7 9.0-12.2 fL Immature Granulocyte % (Auto) 0 % Neutrophils (%) (Auto) 68 42-75 % Lymphocytes (%) (Auto) 24 12-44 % Monocytes (%) (Auto) 6 0-12 % Eosinophils (%) (Auto) 1 0-10 % Basophils (%) (Auto) 0 0-10 % Neutrophils # (Auto) 8.1 H 1.8-7.8 10^3/uL Lymphocytes # (Auto) 2.9 1.0-4.0 10^3/uL Monocytes # (Auto) 0.7 0.0-1.0 10^3/uL Eosinophils # (Auto) 0.2 0.0-0.3 10^3/uL Basophils # (Auto) 0.0 0.0-0.1 10^3/uL Immature Granulocyte # (Auto) 0.0 0.0-0.1 10^3/uL Sodium Level 138 135-145 MMOL/L Potassium Level 3.9 3.6-5.0 MMOL/L Chloride Level 105 98-107 MMOL/L Carbon Dioxide Level 22 21-32 MMOL/L Anion Gap 11 5-14 MMOL/L Blood Urea Nitrogen 14 7-18 MG/DL Creatinine 0.88 0.60-1.30 MG/DL Estimat Glomerular Filtration Rate 115 BUN/Creatinine Ratio 16 Glucose Level 96 70-105 MG/DL Calcium Level 9.2 8.5-10.1 MG/DL My Orders Orders - FILIBERTO PARISI [employer] Cbc With Automated Diff (05/22/22 19:28) Basic Metabolic Panel (05/22/22 19:28) Iv/Invasive Line Insertion .IV INSERT (05/22/22 19:28) Ceftriaxone 1 Gm Pre-Mix (Rocephin 1 Gm (05/22/22 19:30) Medications Given in ED Current Medications Medications Dose Ordered Sig/Lakshmi Route Start Time Stop Time Status Last Admin Dose Admin Ceftriaxone Sodium/Dextrose 50 ml @ 100 mls/hr ONCE ONCE IV 05/22/22 19:30 05/22/22 19:59 DC 05/22/22 19:44 100 MLS/HR Vital Signs/I&O 05/22/22 19:00 Temp 37.0 Pulse 95 Resp 18 B/P (MAP) 151/93 (112) Pulse Ox 97 O2 Delivery Room Air Blood Pressure Mean: 112 Departure Impression Primary Impression: Cellulitis Qualified Codes: L03.012 - Cellulitis of left finger Disposition: 01 HOME, SELF-CARE Condition: Stable Departure-Patient Inst. Decision time for Depature: 20:15 Referrals: [facility] (PCP/Family) Primary Care Physician Patient Instructions: Cellulitis (Skin Infection), Adult ED Scripts Cephalexin (Cephalexin) 500 Mg Tablet 500 MG PO QID for 7 Days, #28 TAB 0 Refills Prov: FILIBERTO PARISI APRN 05/22/22 Sulfamethoxazole/Trimethoprim (Bactrim Ds Tablet) 1 Each Tablet 1 EACH PO BID for 7 Days, #14 TAB 0 Refills Prov: FILIBERTO PARISI APRN 05/22/22 FILIBERTO PARISI APRN May 22, 2022 19:58
[2022-05-22 20:09] LABS: CALCIUM 9.2 MG/DL (8.5-10.1); CREATININE SERUM 0.88 MG/DL (0.60-1.30); POTASSIUM 3.9 MMOL/L (3.6-5.0)
[2022-05-22 20:11] LABS: BASOPHILS % (AUTO) 0 % (0-10); EOSINOPHILS # (AUTO) 0.2 10^3/uL (0.0-0.3); EOSINOPHILS % (AUTO) 1 % (0-10); HEMATOCRIT 45 % (40-54); HEMOGLOBIN 15.5 g/dL (13.3-17.7); LYMPHOCYTES # (AUTO) 2.9 10^3/uL (1.0-4.0); LYMPHOCYTES % (AUTO) 24 % (12-44); MEAN CORPUSCULAR HEMOGLOBIN 32 pg (25-34); MEAN CORPUSCULAR HGB CONC 34 g/dL (32-36); MEAN CORPUSCULAR VOLUME 94 fL (80-99); MEAN PLATELET VOLUME 10.7 fL (9.0-12.2); MONOCYTES # (AUTO) 0.7 10^3/uL (0.0-1.0); MONOCYTES % (AUTO) 6 % (0-12); NEUTROPHILS # (AUTO) 8.1 10^3/uL (1.8-7.8); NEUTROPHILS % (AUTO) 68 % (42-75); PLATELET COUNT 283 10^3/uL (130-400); WHITE BLOOD COUNT 11.9 10^3/uL (4.3-11.0)
[2022-05-22] MEDS ORDERED: CEPH500T PO (20:19)
[2022-05-22] MEDS ORDERED: SULF1TAB38 PO (20:19)
[2022-05-22 20:26] VITALS: BP 149/94
== END 2022-05-22 20:26 | disposition home or self-care (01) ==
LOC: EDUNIT# 18:44 → ER 18:47
DX: L03.012 Cellulitis of left finger (principal); F17.210 Nicotine dependence, cigarettes, uncomplicated; Z28.310 Unvaccinated for COVID-19
CPT/HCPCS: 36415; 80048; 85025; 99281